=== PATIENT | female | born 1935 | race Caucasian/White ===

== ENCOUNTER 2016-10-29 12:52 | Emergency (ER) | payer BC, OTHER ==
[2016-10-29 13:11] VITALS: TEMP 97.5; BMI 25.0
--- NOTE | 2016-10-29 13:19 | PDOC ---
History of Present Illness - General Chief Complaint: Pain, Acute Stated Complaint: LEFT SHOULDER PAIN Time Seen by Provider: 10/29/16 12:54 History Source: Patient, Family Exam Limitations: No Limitations - History of Present Illness Initial Comments: 10/29/16 14:05 CHIEF COMPLAINT: "I had shoulder pain in both shoulders." HISTORY OF PRESENT ILLNESS: This is an 80-year-old female with a history of coronary artery disease status post stent times one approximately 5 years ago. She also has a history of COPD, but she quit smoking 19 years ago. Patient was feeling well, she was out in the store with her family today. She was pushing a shopping cart with both arms when she had sudden onset of severe, excruciating bilateral shoulder pain, left greater than right shoulder. Her daughter states she seemed to be kind of shaky, and she was complaining of severe pain. There is no nausea or vomiting. There was no shortness of breath. There was no diaphoresis. They brought her to the emergency department. Upon arrival to the emergency department she still had bilateral shoulder pain. A 12-lead EKG was done which was unremarkable. The shoulder pain began to subside on its own. Now she is complaining of bilateral anterior thigh pain. The anterior thigh pain is mild. The shoulder pain has resolved. REVIEW OF SYSTEMS: GENERAL/CONSTITUTIONAL: No fever or chills. No weakness. No weight change. HEAD, EYES, EARS, NOSE AND THROAT: No change in vision. No ear pain or discharge. No sore throat. CARDIOVASCULAR: No chest pain or shortness of breath. Positive bilateral shoulder pain. The history of present illness. RESPIRATORY: No cough, wheezing, or hemoptysis. GASTROINTESTINAL: No nausea, vomiting, diarrhea or constipation. No rectal bleeding. GENITOURINARY: No dysuria, frequency, or change in urination. MUSCULOSKELETAL: Positive bilateral shoulder pain. No obvious change with range of motion. Now resolved. Currently complaining of bilateral anterior thigh discomfort. This pain is mild. SKIN AND BREASTS: No rash or easy bruising. NEUROLOGIC: No headache, vertigo, loss of consciousness, or loss of sensation. PSYCHIATRIC: No depression or anxiety. ENDOCRINE: No increased thirst. No abnormal weight change. HEMATOLOGIC/LYMPHATIC: No anemia, easy bleeding, or history of blood clots. ALLERGIC/IMMUNOLOGIC: No hives. Positive recent dry scaly rash, very itchy. No latex allergy. Past History - Past Medical History Allergies/Adverse Reactions: Allergies Allergy/AdvReac Type Severity Reaction Status Date / Time codeine [Codeine] Allergy Severe RESPIRATORY Verified 10/29/16 12:53 DISTRESS Home Medications: Ambulatory Orders Atorvastatin Ca [Lipitor] 80 mg PO HS 01/19/13 Docusate Sodium [Colace -] 100 mg PO HS 01/19/13 Metoprolol Succinate [Toprol XL -] 50 mg PO DAILY 01/19/13 Omeprazole [Prilosec (RX)] 20 mg PO DAILY 01/19/13 Salmeterol/Fluticasone [Advair 250Mcg/50Mcg -] 1 inh IH BID 01/19/13 Albuterol Sulfate 0.5% [Ventolin 0.5% Nebulizing Soln. -] 1 amp NEB Q4H PRN # 100 amp 04/27/16 Aspirin Coated [Ecotrin -] 81 mg PO DAILY tablet.ec 04/27/16 Albuterol Sulfate [Proair Respiclick] 90 mcg IH DAILY 10/29/16 Umeclidinium [place] [Incruse Ellipta] 62.5 mcg IH DAILY 10/29/16 Valsartan/Hydrochlorothiazide [Valsartan-Hctz 80-12.5 mg Tab] 1 each PO DAILY Anemia: No Asthma: No Cancer: No Cardiac Disorders: Yes (CAD, CHF) CVA: No COPD: Yes CHF: No Dementia: No Diabetes: No GI Disorders: Yes (GERD) Disorders: No HTN: Yes Hypercholesterolemia: Yes Liver Disease: No Seizures: No Thyroid Disease: No - Surgical History Abdominal Surgery: Yes Appendectomy: Yes Cardiac Surgery: Yes (Stent Placement 2011) Cholecystectomy: Yes Lung Surgery: No Neurologic Surgery: No Orthopedic Surgery: Yes (KYPHOPLASTY X 2 IN PAST) - Psycho/Social/Smoking Cessation Hx Anxiety: No Suicidal Ideation: No Smoking Status: Yes Smoking History: Former smoker Years of Tobacco Use: 20 Have you smoked in the past 12 months: No Number of Cigarettes Smoked Daily: 20 If you are a former smoker, when did you quit?: 18 YRS AGO Information on smoking cessation initiated: No Hx Alcohol Use: No Drug/Substance Use Hx: No Substance Use Type: None Hx Substance Use Treatment: No *Physical Exam - Vital Signs Last Vital Signs Temp Pulse Resp BP Pulse Ox 97.5 F L 63 24 113/50 98 10/29/16 12:52 10/29/16 12:52 10/29/16 12:52 10/29/16 12:52 10/29/16 12:52 - Physical Exam Comments: 10/29/16 14:10 GENERAL: The patient is awake, alert, and fully oriented, in no acute distress. She currently denies any shoulder or chest pain. She does have some more mild anterior thigh pain bilaterally. HEAD: Normal with no signs of trauma. EYES: Pupils equal, round and reactive to light, extraocular movements intact, sclera anicteric, conjunctiva clear. ENT: Ears normal, nares patent, oropharynx clear without exudates. Moist mucous membranes. NECK: Normal range of motion, supple without lymphadenopathy, JVD, or masses. LUNGS: Breath sounds equal, clear to auscultation bilaterally. No wheezes, and no crackles. HEART: Regular rate and rhythm, normal S1 and S2 without murmur, rub or gallop. ABDOMEN: Soft, nontender, normoactive bowel sounds. No guarding, no rebound. No masses. EXTREMITIES: Normal range of motion, no edema. No pain with range of motion of the bilateral arms or shoulders. No clubbing or cyanosis. No cords, erythema, or tenderness. NEUROLOGICAL: Cranial nerves II through XII grossly intact. Normal speech, normal gait. PSYCH: Normal mood, normal affect. SKIN: Positive diffuse dry scaly skin with excoriations. Heart Score/ECG Review - ECG Intrepretation Comment:: 10/29/16 13:19 Twelve-lead EKG was reviewed by me. The rhythm is normal sinus rhythm at a rate of 68 bpm. There is sinus arrhythmia with occasional PACs. The axis is normal. The intervals are normal. There are no acute ST elevations or depressions. There are no abnormal T waves. Impression: Sinus rhythm with sinus arrhythmia and PACs, otherwise normal EKG. 10/29/16 14:12 Prior twelve-lead EKG from March 2007 for comparison demonstrates no changes. 10/29/16 17:03 EKG #2 was performed at 1700 hrs. The rhythm is normal sinus rhythm at 69 bpm. There are occasional PACs. The axis is normal. The intervals are normal. There are no acute ST elevations or depressions. There are no abnormal T waves. Impression: Normal sinus rhythm with occasional PACs, otherwise normal EKG. ED Treatment Course - LABORATORY CBC & Chemistry Diagram: 10/29/16 13:45 10/29/16 13:45 Medical Decision Making - Critical Care Time Total Critical Care Time (minutes): 35 (acute chest pain with differential including acute myocardial infarction upon arrival) Critical Care Statement: The care of this patient involved high complexity decision making to prevent further life threatening deterioration of the patient 's condition and/or to evalute & treat vital organ system(s) failure or risk of failure. - Medical Decision Making 10/29/16 14:11 Patient is an 80-year-old woman who presents with sudden onset of bilateral shoulder pain while pushing a shopping cart in the store today. The pain was more severe in the left but also present in the right shoulder. There were no other associated symptoms. The pain resolved shortly after arrival to the ED, spontaneously. Physical examination and twelve-lead EKG are normal. Impression: Nonspecific bilateral shoulder pain of uncertain etiology. Plan is for x-ray, repeat EKG, lab workup and cardiac enzymes. Patient will be observed for a period of time in the ED to assess for recurrence of pain. 10/29/16 14:29 Laboratory Results - last 24 hr 10/29/16 10/29/16 10/29/16 13:45 13:45 13:45 WBC 10.8 H RBC 3.69 Hgb 11.1 Hct 33.2 MCV 90.0 MCHC 33.5 RDW 14.3 Plt Count 277 MPV 9.6 Neutrophils % Y Lymphocytes % Y INR 1.04 Sodium 136 Potassium 4.2 Chloride 103 Carbon Dioxide 25 Anion Gap 8 BUN 31 H D Creatinine 1.4 H Creat Clearance w eGFR 36.18 Random Glucose 101 D Calcium 8.8 Magnesium 1.3 L Total Bilirubin 0.6 D AST 25 ALT 16 Alkaline Phosphatase 86 D Creatine Kinase Troponin I Total Protein 6.7 Albumin 3.6 10/29/16 13:45 WBC RBC Hgb Hct MCV MCHC RDW Plt Count MPV Neutrophils % Lymphocytes % INR Sodium Potassium Chloride Carbon Dioxide Anion Gap BUN Creatinine Creat Clearance w eGFR Random Glucose Calcium Magnesium Total Bilirubin AST ALT Alkaline Phosphatase Creatine Kinase 78 Troponin I 0.03 Total Protein Albumin 10/29/16 14:30 Troponin level is 0.03, EKG is unremarkable with no change from prior EKG. Patient will be observed and have repeat EKG and repeat cardiac enzymes. She continues to feel well at this time. 10/29/16 17:42 Troponin level 2 is negative. EKG 2 is negative. The patient continues to feel well. Her shoulder pain that was sudden onset that resolved spontaneously does not appear to be cardiac in etiology. Patient is stable for discharge home with her daughters. She was advised to return for any serious symptoms. *DC/Admit/Observation/Transfer Diagnosis at time of Disposition: Chest pain Qualifiers: Chest pain type: unspecified Qualified Code(s): R07.9 - Chest pain, unspecified - Discharge Dispostion Disposition: HOME Condition at time of disposition: Improved Admit: No - Referrals Referrals: Lucy Munoz MD [Primary Care Provider] - 3 days - Patient Instructions Printed Discharge Instructions: DI for Chest Pain Additional Instructions: You were evaluated today for shoulder pain. The EKGs and heart enzymes were all normal. The extract cause of the shoulder pain is not clear at this time, but it has resolved and does not appear to be caused by anything serious at this moment. Follow-up with Dr. Zabala, your cannon fire direction specialist or with your primary care physician. Return to the emergency department for any severe or progressive symptoms.
[2016-10-29 14:06] LABS: INR 1.04 (0.82-1.09); PROTHROMBIN TIME (PATIENT) 11.6 SEC (10.2-13.0)
[2016-10-29 14:11] LABS: ALBUMIN 3.6 g/dl (3.5-5.0); BILIRUBIN,TOTAL 0.6 mg/dl (0.2-1.0); CALCIUM 8.8 mg/dl (8.4-10.2); CREATININE 1.4 mg/dl (0.6-1.3); MAGNESIUM 1.3 mg/dL (1.8-2.4); TOT PROT 6.7 g/dl (6.4-8.3)
[2016-10-29 14:16] LABS: MCH 30.2 pg (25.7-33.7); MCHC 33.5 g/dl (32.0-36.0); MEAN PLT VOLUME 9.6 fl (7.5-11.1); PLATELET COUNT 277 K/MM3 (134-434); RDW 14.3 % (11.6-15.6); WHITE BLOOD COUNT 10.8 K/mm3 (4.0-10.0)
[2016-10-29 14:23] LABS: TROPONIN I (DFP) 0.03 ng/ml (0.03-0.50)
[2016-10-29 14:45] LABS: ANISOCYTOSIS 1+; SCHISTOCYTES OCC
[2016-10-29 14:46] LABS: POIKILOCYTOSIS OCC
[2016-10-29 16:51] LABS: CPK(DFH) 82 IU/L (26-140)
[2016-10-29 17:07] LABS: TROPONIN I (DFP) < 0.03 ng/ml (0.03-0.50)
[2016-10-29 17:41] VITALS: BP 108/48; PULSE 75
--- NOTE | 2016-10-29 22:18 | EKG ---
Test Reason : Blood Pressure : / mmHG Vent. Rate : 068 BPM Atrial Rate : 068 BPM P-R Int : 144 ms QRS Dur : 074 ms QT Int : 398 ms P-R-T Axes : 026 000 032 degrees QTc Int : 423 ms SINUS RHYTHM WITH PREMATURE ATRIAL COMPLEXES OTHERWISE NORMAL ECG WHEN COMPARED WITH ECG OF 08-APR-2007 16:58, PREMATURE ATRIAL COMPLEXES ARE NOW PRESENT Confirmed by ISABELA COLMENARES MD ([id number]) on 10/29/2016 10:18:15 PM Referred By: BRIAN FLORIAN Confirmed By:ISABELA COLMENARES MD
--- NOTE | 2016-10-30 17:35 | EKG ---
Test Reason : Blood Pressure : / mmHG Vent. Rate : 069 BPM Atrial Rate : 069 BPM P-R Int : 152 ms QRS Dur : 068 ms QT Int : 386 ms P-R-T Axes : 068 006 040 degrees QTc Int : 413 ms POOR DATA QUALITY, INTERPRETATION MAY BE ADVERSELY AFFECTED SINUS RHYTHM WITH PREMATURE ATRIAL COMPLEXES WHEN COMPARED WITH ECG OF 29-OCT-2016 13:14, NO SIGNIFICANT CHANGE WAS FOUND Confirmed by MD HERMILA, SUSAN ([id number]) on 10/30/2016 5:35:24 PM Referred By: BRIAN FLORIAN Confirmed By:SUSAN CLEANING MD
== END 2016-10-29 17:59 | disposition home or self-care (01) ==
LOC: FER 12:52
DX: R07.9 Chest pain, unspecified (principal); I25.10 Atherosclerotic heart disease of native coronary artery without angina pectoris; I50.9 Heart failure, unspecified; J44.9 Chronic obstructive pulmonary disease, unspecified; I10 Essential (primary) hypertension; E78.00 Pure hypercholesterolemia, unspecified; Z87.891 Personal history of nicotine dependence
CPT/HCPCS: 36415; 71010-TC; 80053; 82550; 83735; 84484; 85025; 85610; 93005; 99285-25

== ENCOUNTER 2017-09-16 08:47 | Observation (INO) | payer OTHER, BC ==
[2017-09-16] MEDS ORDERED: LIDOCAINE HCL 2% JELLY (5 ML/TUBE) ONE (08:57)
[2017-09-16] MEDS ORDERED: LIDOCAINE HCL 1%, 10 MG/ML (20ML VIAL) ONE (09:04)
[2017-09-16] MEDS ORDERED: MAGNESIUM CITRATE 300 ML BOTTLE ONE (09:15)
--- NOTE | 2017-09-16 09:27 | PDOC ---
History of Present Illness - General Chief Complaint: Constipation Stated Complaint: CONSTIPATION Time Seen by Provider: 09/16/17 09:26 History Source: Patient (Patient brought in by daughter because of abdomonal, rectal pain and difficulty in having a bowel movement because of pain in the anus. ) Exam Limitations: No Limitations - History of Present Illness Timing/Duration: getting worse Severity: moderate, severe Associated Symptoms: denies: denies symptoms, chest pain, cough, diaphoresis, fever/chills, headaches, loss of appetite, malaise, nausea/vomiting, rash, seizure, shortness of breath, syncope, weakness, other Past History - Travel Traveled outside of the country in the last 30 days: No Close contact w/someone who was outside of country & ill: No - Past Medical History Allergies/Adverse Reactions: Allergies Allergy/AdvReac Type Severity Reaction Status Date / Time codeine [Codeine] Allergy Severe RESPIRATORY Verified 09/16/17 08:48 DISTRESS Home Medications: Ambulatory Orders Atorvastatin Ca [Lipitor] 80 mg PO HS 01/19/13 Docusate Sodium [Colace -] 200 mg PO HS 01/19/13 Metoprolol Succinate [Toprol XL -] 50 mg PO DAILY 01/19/13 Omeprazole [Prilosec (RX)] 20 mg PO DAILY 01/19/13 Salmeterol/Fluticasone [Advair 250Mcg/50Mcg -] 1 inh IH BID 01/19/13 Aspirin Coated [Ecotrin -] 81 mg PO DAILY tablet.ec 04/27/16 Albuterol Sulfate [Proair Respiclick] 90 mcg IH DAILY 10/29/16 Umeclidinium [place] [Incruse Ellipta] 62.5 mcg IH DAILY 10/29/16 Valsartan/Hydrochlorothiazide [Valsartan-Hctz 80-12.5 mg Tab] 1 each PO DAILY Furosemide [Lasix] 20 mg PO ASDIR 09/16/17 Anemia: No Asthma: No Cancer: No Cardiac Disorders: Yes (CAD, CHF) CVA: No COPD: Yes CHF: No DVT: No Dementia: No Diabetes: No GI Disorders: Yes (GERD) Disorders: No HTN: Yes Hypercholesterolemia: Yes Liver Disease: No Seizures: No Thyroid Disease: No - Surgical History Abdominal Surgery: Yes Appendectomy: Yes Cardiac Surgery: Yes (Stent Placement 2012) Cholecystectomy: Yes Lung Surgery: No Neurologic Surgery: No Orthopedic Surgery: Yes (KYPHOPLASTY X 2 IN PAST) - Suicide/Smoking/Psychosocial Hx Smoking Status: Yes Smoking History: Former smoker Years of Tobacco Use: 20 Have you smoked in the past 12 months: No Number of Cigarettes Smoked Daily: 20 If you are a former smoker, when did you quit?: 18 YRS AGO Information on smoking cessation initiated: No Hx Alcohol Use: No Drug/Substance Use Hx: No Substance Use Type: None Hx Substance Use Treatment: No Review of Systems - Review of Systems Able to Perform ROS?: Yes Is the patient limited Spanish proficient: Yes Constitutional: Yes: Symptoms Reported, Weakness HEENTM: No: Symptoms Reported, See HPI, Eye Pain, Blurred Vision, Tearing, Recent change in vision, Double Vision, Cataracts, Ear Pain, Ocular Prothesis, Ear Discharge, Nose Pain, Nose Congestion, Tinnitus, Nose Bleeding, Hearing Loss , Throat Pain, Throat Swelling, Mouth Pain, Dental Problems, Difficulty Swallowing, Mouth Swelling, Other Respiratory: No: Symptoms reported, See HPI, Cough, Orthopnea, Shortness of Breath, SOB with Exertion, SOB at Rest, Stridor, Wheezing, Productive cough, Hemoptysis, Other Cardiac (ROS): No: Symptoms Reported, See HPI, Chest Pain, Edema, Irregular Heart Rate, Lightheadedness, Palpitations, Syncope, Chest Tightness, Other ABD/GI: Yes: See HPI, Abd. Pain w/ defecation, Constipated : No: Symptoms Reported, See HPI, Burning, Dysuria, Discharge, Frequency, Flank Pain, Hematuria, Incontinence, Pain, Urgency, Testicular Mass, Testicular Swelling, Lesions, Testicular Pain, Other Musculoskeletal: Yes: Muscle Weakness Integumentary: No: Symptoms Reported, See HPI, Bruising, Change in Color, Change in Hair/Nails, Dryness, Erythema, Flushing, Lesions, Lumps, Pallor, Pruritus, Rash, Sweating, Other All Other Systems: Reviewed and Negative *Physical Exam - Vital Signs Last Vital Signs Temp Pulse Resp BP Pulse Ox 97.5 F L 75 16 153/60 96 09/16/17 08:48 09/16/17 08:48 09/16/17 08:48 09/16/17 08:48 09/16/17 08:48 - Physical Exam General Appearance: Yes: Nourished, Moderate Distress, Severe Distress, Thin HEENT: positive: Normal ENT Inspection, Other (dry oral mucosae) Neck: positive: Other (scoliosis) Respiratory/Chest: positive: Lungs Clear, Normal Breath Sounds Cardiovascular: positive: Regular Rate, S1, S2 Gastrointestinal/Abdominal: positive: Tender (Very mild diffuse abdominal tendernes), Flat Rectal Exam: positive: hemorrhoids (Thrombosed hemorrhoid aprox 1.5 cm in diameter ) Musculoskeletal: positive: Other (Kyphoscoliosis) Integumentary: positive: Dry Neurologic: positive: quality assurance technician II-XII NML intact, Fully Oriented, Alert, Normal Mood/ Affect Procedures - Incision and Drainage I&D Site: Left: Other (perianal thrombosed hemorrhoid) Betadine cleansed: Yes Anesthesia: 1% Lidocaine Volume(ml): 5 Blade Size: 10 Attempts: 1 Complications: none Dressing: Yes ED Treatment Course - LABORATORY CBC & Chemistry Diagram: 09/16/17 11:31 09/16/17 11:31 Medical Decision Making - Medical Decision Making After I & D of the thrombosed hemorrhoid, patient experienced relief, received Mag Citrate po, topical anesthesia and Fleet enema, Observed for one hour. Second hour patient strained self, few hard stool destiny came out with pain Morphine Sulfate 1mg iv push given with some improvement of pain. Call to RAJ[facility] Gil were made. 09/16/17 13:07 *DC/Admit/Observation/Transfer Diagnosis at time of Disposition: Thrombosed external hemorrhoid Constipation Qualifiers: Constipation type: unspecified constipation type Qualified Code(s): K59.00 - Constipation, unspecified - Discharge Dispostion Disposition: HOME Condition at time of disposition: Improved Admit: Yes - Referrals Referrals: Lucy uMnoz MD [Primary Care Provider] - - Patient Instructions Printed Discharge Instructions: Hemorrhoidectomy, DI for Constipation Additional Instructions: Suggest Miralax daily 1/2 dose, sitzbath warnm tide water, apply bacitracin ointment after and after B.M. - Post Discharge Activity
[2017-09-16] MEDS ORDERED: LIDOCAINE VISCOUS 2% ORAL/TOP 100 ML BOTTLE MM ONE (09:29)
[2017-09-16] MEDS ORDERED: MAGNESIUM CITRATE 300 ML BOTTLE PO ONE (09:44)
[2017-09-16] MEDS ORDERED: LIDOCAINE HCL 2% JELLY (5 ML/TUBE) TP ONE (10:07)
[2017-09-16] MEDS ORDERED: LIDOCAINE HCL 1%, 10 MG/ML (50 mL VIAL) SQ ONE (10:08)
[2017-09-16] MEDS ORDERED: ACETAMINOPHEN 500 MG TABLET (FP) ONE (10:39)
[2017-09-16] MEDS ORDERED: SODIUM PHOSPHATE/NA BIPHOS 133 ML ENEMA PR ONE (11:07)
[2017-09-16] MEDS ORDERED: ACETAMINOPHEN 500 MG TABLET (FP) PO ONE (11:08)
[2017-09-16] MEDS ORDERED: morphine CARPU-JECT 2 MG/1 ML DISP.SYRIN IVPUSH ONE (11:29)
[2017-09-16] MEDS ORDERED: morphine CARPU-JECT 2 MG/1 ML DISP.SYRIN ONE (11:35)
[2017-09-16 11:45] LABS: BASO % 2.3 % (0-2.0); EOS % 2.6 % (0-4.5); HEMATOCRIT 36.4 % (32.4-45.2); HEMOGLOBIN 12.1 GM/dl (10.7-15.3); LYMPH % 12.6 % (8-40); MCHC 33.2 g/dl (32.0-36.0); MEAN CELL VOLUME 93.5 fl (80-96); MEAN PLT VOLUME 9.8 fl (7.5-11.1); MONO % 13.5 % (3.8-10.2); PLATELET COUNT 309 K/MM3 (134-434); RBC 3.89 M/mm3 (3.60-5.2); RDW 13.7 % (11.6-15.6); WHITE BLOOD COUNT 11.7 K/mm3 (4.0-10.8)
[2017-09-16 12:05] LABS: ALBUMIN 3.7 g/dl (3.5-5.0); ALK PHOS 103 U/L (32-92); ANION GAP 10 (8-16); BILIRUBIN,TOTAL 0.3 mg/dl (0.2-1.0); BLOOD UREA NITROGEN 30 mg/dl (7-18); CALCIUM 9.4 mg/dl (8.4-10.2); CHLORIDE 106 mmol/L (98-107); CO2 22 mmol/L (22-28); CREATININE 1.2 mg/dl (0.6-1.3); GLUCOSE,RANDOM 125 mg/dl (74-106); POTASSIUM 4.8 mmol/L (3.5-5.1); SGOT/AST 24 U/L (10-42); SGPT/ALT 16 U/L (10-40); SODIUM 138 mmol/L (136-145); TOT PROT 7.4 g/dl (6.4-8.3)
--- NOTE | 2017-09-16 12:43 | HP ---
CHIEF COMPLAINT: Constipation PCP: Dr. Munoz (paged by ER without return call) GI: Dr. Lemus (no recent colonoscopy, high risk per daughter) Cardiology: Dr. Fuentes Pulmonology: Dr. Puente HISTORY OF PRESENT ILLNESS: This is an 81 year old female with a history of CAD s/p stent x 1, HTN, COPD, and GERD who presented to the ED today with rectal pain and difficulty with defacation x 1 week. She has been able to tpass only a very small amount of stool and has a sensation of incomplete evacuation. She denies abdominal pain, n/v, fevers/chills, or any other symptoms. In the ED she was noted to have a thrombosed hemorrhoid, which was incised and drained. She was given magnesium citrate and an enema and was able to have a small bowel movement, but continues to have rectal pain which required administration of IV morphine. ER course was notable for: (1) AXR: no fecal impaction or obstruction (2) WBC mildly elevated at 11.7 (3) BUN elevated at 30 Recent Travel: None PAST MEDICAL HISTORY: As above PAST SURGICAL HISTORY: Hemorrhoidectomy (distant), appendix, gallbladder Social History: Lives with daughter, independent in ADLs Smoking: Former smoker Alcohol: None Family History: Non-contributory Allergies codeine [Codeine] Allergy (Severe, Verified 09/16/17 08:48) RESPIRATORY DISTRESS HOME MEDICATIONS: Home Medications Medication Instructions Recorded Atorvastatin Ca [Lipitor] 80 mg PO HS 01/19/13 Docusate Sodium [Colace -] 200 mg PO HS 01/19/13 Metoprolol Succinate [Toprol XL -] 50 mg PO DAILY 01/19/13 Omeprazole [Prilosec (RX)] 20 mg PO DAILY 01/19/13 Salmeterol/Fluticasone [Advair 1 inh IH BID 01/19/13 250Mcg/50Mcg -] Aspirin Coated [Ecotrin -] 81 mg PO DAILY tablet.ec 04/27/16 Albuterol Sulfate [Proair 90 mcg IH DAILY 10/29/16 Respiclick] Umeclidinium [place] [Incruse 62.5 mcg IH DAILY 10/29/16 Ellipta] Valsartan/Hydrochlorothiazide 1 each PO DAILY 10/29/16 [Valsartan-Hctz 80-12.5 mg Tab] Furosemide [Lasix] 20 mg PO ASDIR 09/16/17 REVIEW OF SYSTEMS CONSTITUTIONAL: Absent: fever, chills, diaphoresis, generalized weakness, malaise, loss of appetite, weight change HEENT: Absent: rhinorrhea, nasal congestion, throat pain, throat swelling, difficulty swallowing, mouth swelling, ear pain, eye pain, visual changes CARDIOVASCULAR: Absent: chest pain, syncope, palpitations, irregular heart rate, lightheadedness , peripheral edema RESPIRATORY: Absent: cough, shortness of breath, dyspnea with exertion, orthopnea, wheezing, stridor, hemoptysis GASTROINTESTINAL: See HPI GENITOURINARY: Absent: dysuria, frequency, urgency, hesitancy, hematuria, flank pain, genital pain MUSCULOSKELETAL: Absent: myalgia, arthralgia, joint swelling, back pain, neck pain SKIN: Absent: rash, itching, pallor HEMATOLOGIC/IMMUNOLOGIC: Absent: easy bleeding, easy bruising, lymphadenopathy, frequent infections ENDOCRINE: Absent: unexplained weight gain, unexplained weight loss, heat intolerance, cold intolerance NEUROLOGIC: Absent: headache, focal weakness or paresthesias, dizziness, unsteady gait, seizure, mental status changes, bladder or bowel incontinence PSYCHIATRIC: Absent: anxiety, depression, suicidal or homicidal ideation, hallucinations. PHYSICAL EXAMINATION Vital Signs - 24 hr 09/16/17 08:48 Temperature 97.5 F L Pulse Rate 75 Respiratory 16 Rate Blood Pressure 153/60 O2 Sat by Pulse 96 Oximetry (%) GENERAL: Awake, alert, and fully oriented, in no acute distress. HEAD: Normal with no signs of trauma. EYES: Pupils equal, round and reactive to light, extraocular movements intact, sclera anicteric, conjunctiva clear. No lid lag. EARS, NOSE, THROAT: Ears normal, nares patent, oropharynx clear without exudates. Moist mucous membranes. NECK: Normal range of motion, supple without lymphadenopathy, JVD, or masses. LUNGS: Breath sounds equal, clear to auscultation bilaterally. No wheezes, and no crackles. No accessory muscle use. HEART: Regular rate and rhythm, normal S1 and S2 without murmur, rub or gallop. ABDOMEN: Soft, nontender, not distended, normoactive bowel sounds, no guarding, no rebound, no masses. No hepatomegaly or splenomegaly. MUSCULOSKELETAL: Normal range of motion at all joints. No bony deformities or tenderness. No CVA tenderness. UPPER EXTREMITIES: 2+ pulses, warm, well-perfused. No cyanosis. No clubbing. No peripheral edema. LOWER EXTREMITIES: 2+ pulses, warm, well-perfused. No calf tenderness. No peripheral edema. NEUROLOGICAL: Cranial nerves II-XII intact. Normal speech. Normal gait. PSYCHIATRIC: Cooperative. Good eye contact. Appropriate mood and affect. SKIN: Warm, dry, normal turgor, no rashes or lesions noted, normal capillary refill. Laboratory Results - last 24 hr 09/16/17 09/16/17 11:31 11:31 WBC 11.7 H D RBC 3.89 Hgb 12.1 Hct 36.4 MCV 93.5 MCH 31.0 MCHC 33.2 RDW 13.7 Plt Count 309 MPV 9.8 Neutrophils % 69.0 Lymphocytes % 12.6 Monocytes % 13.5 H Eosinophils % 2.6 Basophils % 2.3 H Sodium 138 Potassium 4.8 Chloride 106 Carbon Dioxide 22 Anion Gap 10 BUN 30 H Creatinine 1.2 Creat Clearance w eGFR 43.12 Random Glucose 125 H D Calcium 9.4 Total Bilirubin 0.3 D AST 24 ALT 16 Alkaline Phosphatase 103 H Total Protein 7.4 Albumin 3.7 ASSESSMENT/PLAN: 81 year old female with constipation secondary to thrombosed hemorrhoid. Problem List - Problem (1) Constipation Assessment/Plan: -Colace, Senna, Miralax -Encourage PO intake and ambulation -Expect improvement s/p I&D -Consider GI evaluation if symptoms worsening Code(s): K59.00 - CONSTIPATION, UNSPECIFIED Qualifiers: Constipation type: unspecified constipation type Qualified Code(s): K59.00 - Constipation, unspecified (2) Thrombosed external hemorrhoid Assessment/Plan: -S/p I&D Code(s): K64.5 - PERIANAL VENOUS THROMBOSIS (3) HTN (hypertension) Assessment/Plan: -At goal -Continue home Valsartan/HCTZ and Metoprolol Code(s): I10 - ESSENTIAL (PRIMARY) HYPERTENSION (4) Atherosclerotic heart disease Assessment/Plan: -No active issues -Continue ASA, statin, BB Code(s): I25.10 - ATHSCL HEART DISEASE OF ELEM CORONARY ARTERY W/O ANG PCTRS (5) COPD (chronic obstructive pulmonary disease) with acute bronchitis Assessment/Plan: -No active issues -Continue home inhalers Code(s): J44.0 - CHRONIC OBSTRUCTIVE PULMON DISEASE W ACUTE LOWER RESP INFCT (6) GERD (gastroesophageal reflux disease) Assessment/Plan: -No active issues -Continue home PPI Code(s): K21.9 - GASTRO-ESOPHAGEAL REFLUX DISEASE WITHOUT ESOPHAGITIS (7) Hyperlipidemia Assessment/Plan: -Continue atorvastatin Code(s): E78.5 - HYPERLIPIDEMIA, UNSPECIFIED Qualifiers: Hyperlipidemia type: pure hypercholesterolemia Qualified Code(s): E78.00 - Pure hypercholesterolemia, unspecified; E78.0 - Pure hypercholesterolemia (8) DVT prophylaxis Assessment/Plan: -SCDs Code(s): [id number] - Visit type - Emergency Visit Emergency Visit: Yes ED Registration Date: 09/16/17 Care time: The patient presented to the Emergency Department on the above date and was hospitalized for further evaluation of their emergent condition. - New Patient This patient is new to me today: Yes Date on this admission: 09/16/17 - Critical Care Critical Care patient: No
--- NOTE | 2017-09-16 12:47 | EKG ---
Test Reason : Blood Pressure : / mmHG Vent. Rate : 065 BPM Atrial Rate : 065 BPM P-R Int : 158 ms QRS Dur : 072 ms QT Int : 386 ms P-R-T Axes : 060 -01 046 degrees QTc Int : 401 ms NORMAL SINUS RHYTHM NORMAL ECG WHEN COMPARED WITH ECG OF 29-OCT-2016 17:00, PREMATURE ATRIAL COMPLEXES ARE NO LONGER PRESENT Confirmed by Kulwinder Witt ([id number]) on 09/16/2017 12:46:56 PM Referred By: EDENILSON Confirmed By:Kulwinder Witt
[2017-09-16] MEDS ORDERED: ASPIRIN COATED 81 MG TABLET.EC PO SCH (13:32)
[2017-09-16] MEDS ORDERED: morphine CARPU-JECT 2 MG/1 ML DISP.SYRIN IVPUSH PRN (13:33)
[2017-09-16] MEDS ORDERED: ACETAMINOPHEN 325 MG TABLET (FP) PO PRN (13:33)
[2017-09-16] MEDS ORDERED: PATIENT'S OWN MEDICATION (NON-FORMULARY) (Valsartan/Hydrochlorothiazide [Valsartan-Hctz 80 PO SCH (13:45)
[2017-09-16] MEDS ORDERED: SODIUM CHLORIDE 1,000 ML IV SCH (13:45)
[2017-09-16] MEDS ORDERED: FUROSEMIDE 40 MG TABLET (FP) ONE (14:13)
[2017-09-16] MEDS: FUROSEMIDE 20 MG TABLET (FP) PO SCH (14:16)
[2017-09-16] MEDS: POLYETHYLENE GLYCOL 3350 119 GM BTL PO SCH ×2 (14:46→21:08)
[2017-09-16] MEDS: DOCUSATE SODIUM 100 MG CAPSULE (FP) PO SCH ×2 (14:47→21:08)
[2017-09-16 15:15] VITALS: BMI 22.8
[2017-09-16] MEDS: BUDESONIDE/FORMETEROL FUMARATE 80/4.5 mcg INHALER IH SCH ×2 (16:27→22:23)
[2017-09-16] MEDS: PANTOPRAZOLE 20 MG TABLET (FP) PO SCH (16:27)
[2017-09-16] MEDS: VALSARTAN 80 MG TABLET (UD) PO SCH (16:39)
[2017-09-16] MEDS: HYDROCHLOROTHIAZIDE 12.5 MG CAPSULE (FP) PO SCH (16:39)
[2017-09-16] MEDS: SENNOSIDES 8.6MG TABLET (FP) PO SCH (21:09)
[2017-09-16] MEDS ORDERED: ATORVASTATIN CA 80 MG TABLET (FP) PO SCH (22:00)
[2017-09-16] MEDS: METOPROLOL SUCCINATE 50 MG TAB.SR.24H (FP) PO SCH (22:25)
[2017-09-17] MEDS: SODIUM CHLORIDE 1,000 ML IV SCH (00:41)
[2017-09-17] MEDS: DOCUSATE SODIUM 100 MG CAPSULE (FP) PO SCH ×4 (06:29→21:10)
[2017-09-17 08:15] LABS: BASO % 0.5 % (0-2.0); EOS % 4.4 % (0-4.5); HEMOGLOBIN 10.8 GM/dl (10.7-15.3); LYMPH % 12.7 % (8-40); MCH 31.4 pg (25.7-33.7); MCHC 33.9 g/dl (32.0-36.0); MEAN CELL VOLUME 92.5 fl (80-96); MEAN PLT VOLUME 9.4 fl (7.5-11.1); MONO % 9.6 % (3.8-10.2); NEUT % 72.8 % (42.8-82.8); PLATELET COUNT 253 K/MM3 (134-434); RBC 3.45 M/mm3 (3.60-5.2); RDW 13.6 % (11.6-15.6); WHITE BLOOD COUNT 9.7 K/mm3 (4.0-10.8)
[2017-09-17 08:48] LABS: ALBUMIN 3.1 g/dl (3.5-5.0); ALK PHOS 86 U/L (32-92); ANION GAP 6 (8-16); BILIRUBIN,TOTAL 0.6 mg/dl (0.2-1.0); BLOOD UREA NITROGEN 23 mg/dl (7-18); CALCIUM 8.5 mg/dl (8.4-10.2); CHLORIDE 100 mmol/L (98-107); CO2 28 mmol/L (22-28); GLUCOSE,RANDOM 96 mg/dl (74-106); MAGNESIUM 2.3 mg/dL (1.8-2.4); POTASSIUM 4.5 mmol/L (3.5-5.1); SGOT/AST 20 U/L (10-42); SGPT/ALT 13 U/L (10-40); SODIUM 134 mmol/L (136-145); TOT PROT 6.2 g/dl (6.4-8.3)
[2017-09-17] MEDS: PANTOPRAZOLE 20 MG TABLET (FP) PO SCH (09:54)
[2017-09-17] MEDS: VALSARTAN 80 MG TABLET (UD) PO SCH (09:54)
[2017-09-17] MEDS: HYDROCHLOROTHIAZIDE 12.5 MG CAPSULE (FP) PO SCH (09:54)
[2017-09-17] MEDS: POLYETHYLENE GLYCOL 3350 119 GM BTL PO SCH ×2 (09:55→21:09)
[2017-09-17] MEDS: BUDESONIDE/FORMETEROL FUMARATE 80/4.5 mcg INHALER IH SCH ×2 (09:59→21:10)
[2017-09-17] MEDS ORDERED: METOPROLOL SUCCINATE 50 MG TAB.SR.24H (FP) PO SCH (10:00)
[2017-09-17] MEDS: PATIENT'S OWN MEDICATION (NON-FORMULARY) (Umeclidinium Bromide [Incruse Ellipta] 62.5 MCG) IH SCH (10:37)
--- NOTE | 2017-09-17 10:56 | PN ---
Physical Exam: SUBJECTIVE: Patient seen and examined, reports feeling tired and weak, multiple episodes of loose stool as per patient. OBJECTIVE: patient is 81 year old female with a history of CAD s/p stent x 1, HTN, COPD, and GERD. Patient was admitted from the emergency department to observation for emergent condition Vital Signs Period Temp Pulse Resp BP Sys/Oh Pulse Ox Last 24 Hr 97.6 F-98.0 F 64-79 16-19 95-134/42-62 98-99 GENERAL: The patient is awake, alert, and fully oriented, in no acute distress. HEAD: Normal with no signs of trauma. EYES: PERRL, extraocular movements intact, sclera anicteric, conjunctiva clear. No ptosis. ENT: Ears normal, nares patent, oropharynx clear without exudates, dry mucous membranes. NECK: Trachea midline, full range of motion, supple. LUNGS: Breath sounds equal, clear to auscultation bilaterally, no wheezes, no crackles, no accessory muscle use. HEART: Regular rate and rhythm, S1, S2 without murmur, rub or gallop. ABDOMEN: Soft, nontender, nondistended, hyperactive bowel sounds, no guarding, no rebound, no hepatosplenomegaly, no masses. EXTREMITIES: 2+ pulses, warm, well-perfused, no edema. NEUROLOGICAL: Cranial nerves II through XII grossly intact. Normal speech, gait not observed. PSYCH: Normal mood, normal affect. SKIN: Warm, dry, normal turgor, no rashes or lesions noted Laboratory Results - last 24 hr 09/16/17 09/16/17 09/17/17 11:31 11:31 07:00 WBC 11.7 H D 9.7 RBC 3.89 3.45 L Hgb 12.1 10.8 D Hct 36.4 32.0 L MCV 93.5 92.5 MCH 31.0 31.4 MCHC 33.2 33.9 RDW 13.7 13.6 Plt Count 309 253 MPV 9.8 9.4 Neutrophils % 69.0 72.8 Lymphocytes % 12.6 12.7 Monocytes % 13.5 H 9.6 Eosinophils % 2.6 4.4 Basophils % 2.3 H 0.5 Sodium 138 Potassium 4.8 Chloride 106 Carbon Dioxide 22 Anion Gap 10 BUN 30 H Creatinine 1.2 Creat Clearance w eGFR 43.12 Random Glucose 125 H D Calcium 9.4 Magnesium Total Bilirubin 0.3 D AST 24 ALT 16 Alkaline Phosphatase 103 H Total Protein 7.4 Albumin 3.7 09/17/17 07:00 WBC RBC Hgb Hct MCV MCH MCHC RDW Plt Count MPV Neutrophils % Lymphocytes % Monocytes % Eosinophils % Basophils % Sodium 134 L Potassium 4.5 Chloride 100 Carbon Dioxide 28 D Anion Gap 6 L BUN 23 H D Creatinine 1.0 Creat Clearance w eGFR 53.21 Random Glucose 96 D Calcium 8.5 Magnesium 2.3 Total Bilirubin 0.6 D AST 20 ALT 13 Alkaline Phosphatase 86 Total Protein 6.2 L Albumin 3.1 L Active Medications Generic Name Dose Route Start Last Admin Trade Name Freq PRN Reason Stop Dose Admin Acetaminophen 650 mg 09/16/17 13:33 Tylenol - PO Q4H PRN PAIN LEVEL 1-5 Aspirin 81 mg 09/17/17 22:00 Ecotrin - PO HS [facility] Atorvastatin Calcium 80 mg 09/16/17 22:00 09/16/17 22:23 Lipitor - PO Not Given HS YESSENIA Budesonide/Formoterol Fumarate 2 puff 09/16/17 13:32 09/17/17 09:59 Symbicort 80/4.5mcg - IH 2 puff BID YESSENIA Administration Docusate Sodium 200 mg 09/16/17 14:00 09/17/17 06:29 Colace - PO Not Given TID YESSENIA Furosemide 20 mg 09/16/17 13:33 09/16/17 14:16 Lasix - PO 20 mg ASDIR YESSENIA Administration Hydrochlorothiazide 12.5 mg 09/16/17 16:30 09/17/17 09:54 Hctz - PO Not Given DAILY [facility] Sodium Chloride 1,000 mls @ 42 mls/hr 09/17/17 00:30 09/17/17 00:41 Normal Saline - IV 42 mls/hr ASDIR YESSENIA Administration Metoprolol Succinate 50 mg 09/16/17 22:00 09/16/17 22:25 Toprol Xl - PO 50 mg HS YESSENIA Administration Morphine Sulfate 2 mg 09/16/17 13:33 09/16/17 17:11 Morphine Injection - IVPUSH 2 mg Q4H PRN Administration PAIN LEVEL 6-10 Non-Formulary Medication 62.5 mcg 09/16/17 13:45 09/17/17 10:37 Umeclidinium [place] [Incruse Ellipta] IH 62.5 mcg DAILY YESSENIA Administration Pantoprazole Sodium 20 mg 09/16/17 13:32 09/17/17 09:54 Protonix - PO 20 mg DAILY YESSENIA Administration Polyethylene Glycol 17 gm 09/16/17 13:45 09/17/17 09:55 Miralax (For Daily Use) - PO Not Given BID YESSENIA Senna 2 tab 09/16/17 22:00 09/16/17 21:09 Senna - PO Not Given HS YESSENIA Valsartan 80 mg 09/16/17 16:30 09/17/17 09:54 Diovan - PO Not Given DAILY YESSENIA ASSESSMENT/PLAN: 1) GI thrombosed external hemorrhoid - s/p I&D, 09/16/17, continue bacitracain BID - daughter reports an unintentional 10 lb weight loss within the past 3 months and decreased appetitie, pt may require colonscopy, appreciate gi input constipation - resolved, after colace, senna, and miralax - continue high fiber diet GERD - continue home dose protonix 2) cardiovascular hypertension - labile,hold valsartan, hctz, and metoprolol - continue vital signs q4h CAD - continue ASA, statin 3) Pulm copd - no acute excerbation at this time. - continue symbicort and prn albuterol f/e/n - low sodium diet - replete electrolytes prn ppx - scd - oob - pt dispo: requires observation admission Visit type - Emergency Visit Emergency Visit: Yes ED Registration Date: 09/16/17 Care time: The patient presented to the Emergency Department on the above date and was hospitalized for further evaluation of their emergent condition. - New Patient This patient is new to me today: Yes Date on this admission: 09/17/17 - Critical Care Critical Care patient: No - Discharge Referral Referred to [facility] Med P.C.: No
[2017-09-17] MEDS ORDERED: ALBUTEROL SO4 0.083% IH SOL 2.5 MG/3 ML VIAL.NEB. NEB PRN (12:36)
[2017-09-17] MEDS: ATORVASTATIN CA 80 MG TABLET (FP) PO SCH (13:18)
[2017-09-17] MEDS ORDERED: PT OWN MED DRAWER 7, Y5N ONE ×3 (13:33→21:26)
[2017-09-17] MEDS: BACITRACIN 15 GM TUBE TOPICAL OINTMENT TP SCH ×2 (13:38→21:08)
[2017-09-17] MEDS: FUROSEMIDE 20 MG TABLET (FP) PO SCH (13:38)
--- NOTE | 2017-09-17 13:53 | PN ---
Progress Note (short form) - Note Progress Note: Patient seen and chart reviewed. Patient with hx of constipation, gradual weight loss x months and currently a thrombosed, painful external hemorrhoid. Has not had colonoscopy to date. Discussed with guido and daughter; to keep on clear liquid diet and give Miralax powder for constipation. Surgery consult called for Rx of the thrombosed hemorrhoid and can use Lidocaine gel prn for pain along with Sitz baths. Will tentatively arrange for colonoscopy Weds pending Cardiac/Pulmonary clearance to r/o LGI tract pathology. (will need Nulytely prep tomorrow over 6 hours).
--- NOTE | 2017-09-17 14:48 | CON.CARD ---
Consult Consult Specialty:: Pre-procedural CV evaluation Referred by:: Hospitalist Medicine Reason for Consultation:: Painful hemorrhoids - History of Present Illness Chief Complaint: Perineal discomfort History of Present Illness: 81 year old female with a history of CAD s/p stent x 1, HTN, COPD, and GERD presented with perineal discomfort and difficulty defecating. In the ED she was noted to have a thrombosed hemorrhoid, which was incised and drained. Started on bowel regimen, plan for colonoscopy. She denies chest pain, near or true syncope, palpitations, orthopnea, PND, LE edema or change in exercise capacity. ER course was notable for: (1) AXR: no fecal impaction or obstruction (2) WBC mildly elevated at 11.7 (3) BUN elevated at 30 - History Source History Provided By: Patient Limitations to Obtaining History: No Limitations - Past Medical History Cardio/Vascular: Yes: CAD (s/p stent), HTN Pulmonary: Yes: COPD Gastrointestinal: Yes: GERD - Alcohol/Substance Use Hx Alcohol Use: No - Smoking History Smoking history: Former smoker Have you smoked in the past 12 months: No Aproximately how many cigarettes per day: 20 If you are a former smoker, when did you quit?: 21 YRS AGO Home Medications - Allergies Allergies/Adverse Reactions: Allergies Allergy/AdvReac Type Severity Reaction Status Date / Time codeine [Codeine] Allergy Severe RESPIRATORY Verified 09/16/17 08:48 DISTRESS - Home Medications Home Medications: Ambulatory Orders Atorvastatin Ca [Lipitor] 80 mg PO HS 01/19/13 Docusate Sodium [Colace -] 200 mg PO HS 01/19/13 Metoprolol Succinate [Toprol XL -] 50 mg PO DAILY 01/19/13 Omeprazole [Prilosec (RX)] 20 mg PO DAILY 01/19/13 Salmeterol/Fluticasone [Advair 250Mcg/50Mcg -] 1 inh IH BID 01/19/13 Aspirin Coated [Ecotrin -] 81 mg PO DAILY tablet.ec 04/27/16 Albuterol Sulfate [Proair Respiclick] 90 mcg IH DAILY 10/29/16 Umeclidinium [place] [Incruse Ellipta] 62.5 mcg IH DAILY 10/29/16 Valsartan/Hydrochlorothiazide [Valsartan-Hctz 80-12.5 mg Tab] 1 each PO DAILY Furosemide [Lasix] 20 mg PO ASDIR 09/16/17 Review of Systems - Review of Systems Gastrointestinal: reports: Other (Perineal discomfort) Vital Signs: Vital Signs Temperature 98.7 F 09/17/17 14:00 Pulse Rate 71 09/17/17 14:00 Respiratory Rate 18 09/17/17 14:00 Blood Pressure 107/35 09/17/17 14:00 O2 Sat by Pulse Oximetry (%) 98 09/17/17 14:00 Constitutional: Yes: No Distress, Calm, Thin Neck: Yes: Supple Respiratory: Yes: Regular, Diminished Gastrointestinal: Yes: Normal Bowel Sounds, Soft Cardiovascular: Yes: Regular Rate and Rhythm JVD: No Carotid Bruit: No Heart Sounds: Yes: S1, S2 Edema: No - Other Data Labs, Other Data: CBC, BMP 09/17/17 07:00 09/17/17 07:00 NSR @ 65 Imaging - Results Chest X-ray: Report Reviewed (NAD) Problem List - Problems (1) Pre-procedural cardiovascular examination Code(s): Z01.810 - ENCOUNTER FOR PREPROCEDURAL CARDIOVASCULAR EXAMINATION (2) Constipation Code(s): K59.00 - CONSTIPATION, UNSPECIFIED Qualifiers: Constipation type: unspecified constipation type Qualified Code(s): K59.00 - Constipation, unspecified (3) HTN (hypertension) Code(s): I10 - ESSENTIAL (PRIMARY) HYPERTENSION Qualifiers: Hypertension type: essential hypertension Qualified Code(s): I10 - Essential (primary) hypertension (4) Thrombosed external hemorrhoid Code(s): K64.5 - PERIANAL VENOUS THROMBOSIS (5) COPD (chronic obstructive pulmonary disease) with acute bronchitis Code(s): J44.0 - CHRONIC OBSTRUCTIVE PULMON DISEASE W ACUTE LOWER RESP INFCT (6) Coronary artery disease Code(s): I25.10 - ATHSCL HEART DISEASE OF [place] CORONARY ARTERY W/O ANG PCTRS Qualifiers: Coronary Disease-Associated Artery/Lesion type: [place] artery [place] vs. transplanted heart: [place] heart Associated angina: without angina Qualified Code(s): I25.10 - Atherosclerotic heart disease of [place] coronary artery without angina pectoris (7) Diastolic dysfunction without heart failure Code(s): I51.9 - HEART DISEASE, UNSPECIFIED (8) Hyperlipidemia Code(s): E78.5 - HYPERLIPIDEMIA, UNSPECIFIED Qualifiers: Hyperlipidemia type: pure hypercholesterolemia Qualified Code(s): E78.00 - Pure hypercholesterolemia, unspecified; E78.0 - Pure hypercholesterolemia (9) Hypertensive cardiomegaly without heart failure Code(s): I11.9 - HYPERTENSIVE HEART DISEASE WITHOUT HEART FAILURE (10) S/P drug eluting coronary stent placement Code(s): Z95.5 - PRESENCE OF CORONARY ANGIOPLASTY IMPLANT AND GRAFT Assessment/Plan 1. Thrombosed external hemorrhoids 2. CAD s/p PCI (stent), angina pectoris 3. HTN 4. Hyperlipidemia 5. COPD 6. Diastolic dsyfunction, euvolemic P. 1. Given absence of sxs of acute coronary syndrome, decompensated CHF or malignant arrhythmia, may proceed with colonoscopy from CV-standpoint without further testing, review outpatient records 2. Ideally continue ASA 81 qd hieu-procedure if possible to reduce risks of very late stent thrombosis, continue Lipitor 80 qhs, Toprol XL 50 qd, Diovan- HCT 80/12.5 qd, Lasix 20 qd 3. Bowel regimen, topical analgesia as needed, Sitz baths 4. BD, O2 as needed 5. Thank you for consultative opportunity
[2017-09-17 16:31] LABS: URINE BILIRUBIN Negative (NEGATIVE); URINE GLUCOSE (UA) Negative (NEGATIVE); URINE KETONE Trace (NEGATIVE); URINE NITRITE Negative (NEGATIVE); URINE UROBILINOGEN 0.2 (0.2-1.0)
[2017-09-17 16:35] LABS: URINE APPEARANCE CLOUDY; URINE BLOOD 2+ (NEGATIVE); URINE COLOR YELLOW; URINE PROTEIN 1+ (NEGATIVE)
[2017-09-17 18:09] LABS: EPI CELLS FEW /HPF; URINE BACTERIA FEW /hpf (NEGATIVE)
--- NOTE | 2017-09-17 19:25 | CONS ---
DATE OF CONSULTATION: 09/17/2017 I was asked to evaluate this 81-year-old female admitted with constipation, rectal pain, and external thrombosed hemorrhoids. The patient is an 81-year-old female with a history of hypertension, coronary artery disease, COPD and gastroesophageal reflux. She also has had a history of gradual weight loss over the past year of over 50 pounds with constipation. She has not had a colonoscopy to date. The patient was seen in the emergency room and had lysis of a thrombosed hemorrhoids and also given citrate of magnesia and enema, and some IV morphine for pain control. The patient is currently seen resting in bed with some continued rectal discomfort. She is status post appendectomy, cholecystectomy in the past. The patient had an abdominal x-ray showing no fecal impaction or obstruction. Her laboratory tests at the time of admission included a white count of 11.7 which is now 9.7 and a hemoglobin of 10.8, hematocrit 32% with normal red cell indices. The patient denies any personal history of colitis or polyps, but as noted has not had a prior colonoscopy. There was no family history of GI illness or malignancy. PHYSICAL EXAMINATION: General: The patient is a well developed, slightly frail-appearing elderly female, alert, with rectal discomfort. HEENT: Her conjunctivae are pink. Lungs: Have some distant breath sounds consistent with COPD. Cardiac: Regular rate and rhythm on cardiac exam. Abdomen: Soft flat and nontender. There is a thrombosed external hemorrhoid noted. Patient with constipation, weight loss, and a thrombosed external hemorrhoid. Will require management of the hemorrhoid for surgery, possibly further excision of the clot or possibly more definite hemorrhoid surgery. In the interim, will recommend a colonoscopy to rule out any lower GI tract pathology causing the constipation, straining, and subsequent hemorrhoid. Suggest use of lidocaine gel as needed for pain and sitz bath. Will follow. WU ERDD M.D. CHIQUIS/[id number]
--- NOTE | 2017-09-17 21:08 | CONSULT ---
Consult Consult Specialty:: Surgery Reason for Consultation:: Pain due to hemorrhoids - History of Present Illness History of Present Illness: 81 female consulted for painful hemorrhoids Had drainage at the bedside previously Still with some pain Awaiting colonoscopy to further evaluate remainder of colon - History Source History Provided By: Patient, Medical Record Limitations to Obtaining History: No Limitations - Past Medical History Cardio/Vascular: Yes: CAD (s/p stent), HTN Pulmonary: Yes: COPD Gastrointestinal: Yes: GERD - Alcohol/Substance Use Hx Alcohol Use: No - Smoking History Smoking history: Former smoker Have you smoked in the past 12 months: No Aproximately how many cigarettes per day: 20 If you are a former smoker, when did you quit?: 21 YRS AGO Home Medications - Allergies Allergies/Adverse Reactions: Allergies Allergy/AdvReac Type Severity Reaction Status Date / Time codeine [Codeine] Allergy Severe RESPIRATORY Verified 09/16/17 08:48 DISTRESS - Home Medications Home Medications: Ambulatory Orders Atorvastatin Ca [Lipitor] 80 mg PO HS 01/19/13 Docusate Sodium [Colace -] 200 mg PO HS 01/19/13 Metoprolol Succinate [Toprol XL -] 50 mg PO DAILY 01/19/13 Omeprazole [Prilosec (RX)] 20 mg PO DAILY 01/19/13 Salmeterol/Fluticasone [Advair 250Mcg/50Mcg -] 1 inh IH BID 01/19/13 Aspirin Coated [Ecotrin -] 81 mg PO DAILY tablet.ec 04/27/16 Albuterol Sulfate [Proair Respiclick] 90 mcg IH DAILY 10/29/16 Umeclidinium [place] [Incruse Ellipta] 62.5 mcg IH DAILY 10/29/16 Valsartan/Hydrochlorothiazide [Valsartan-Hctz 80-12.5 mg Tab] 1 each PO DAILY Furosemide [Lasix] 20 mg PO ASDIR 09/16/17 Review of Systems - Review of Systems Constitutional: denies: Chills, Fever HENT: reports: No Symptoms Neck: reports: No Symptoms Cardiovascular: denies: Chest Pain Respiratory: denies: Cough Gastrointestinal: reports: Rectal Bleeding, Other (Rectal pain). denies: Abdominal Pain Neurological: denies: Change in LOC Pain Intensity: 3 Physical Exam Vital Signs: Vital Signs Temperature 98.7 F 09/17/17 14:00 Pulse Rate 74 09/17/17 18:00 Respiratory Rate 16 09/17/17 18:00 Blood Pressure 97/44 09/17/17 18:00 O2 Sat by Pulse Oximetry (%) 97 09/17/17 18:00 Constitutional: Yes: Calm Neck: Yes: WNL Cardiovascular: Yes: WNL Respiratory: Yes: Regular Gastrointestinal: Yes: Soft. No: Distention, Tenderness ...Rectal Exam: Yes: Deferred (Due to pain) Neurological: Yes: Alert, Oriented Labs: CBC, BMP 09/17/17 07:00 09/17/17 07:00 Problem List - Problems (1) Thrombosed external hemorrhoid Code(s): K64.5 - PERIANAL VENOUS THROMBOSIS Assessment/Plan Await colonoscopy and medical clearance Plan for exam under anesthesia and hemorrhoidectoy in OR
[2017-09-17] MEDS: ASPIRIN COATED 81 MG TABLET.EC PO SCH (21:09)
[2017-09-17] MEDS: SENNOSIDES 8.6MG TABLET (FP) PO SCH (21:09)
[2017-09-17] MEDS: METOPROLOL SUCCINATE 50 MG TAB.SR.24H (FP) PO SCH (21:10)
[2017-09-17] MEDS ORDERED: MELATONIN 5 MG TABLETS PO PRN (22:00)
[2017-09-18] MEDS: SODIUM CHLORIDE 1,000 ML IV SCH (00:13)
[2017-09-18] MEDS: DOCUSATE SODIUM 100 MG CAPSULE (FP) PO SCH ×3 (05:53→22:11)
[2017-09-18] MEDS ORDERED: PT OWN MED DRAWER 7, Y5N ONE ×2 (09:36→22:14)
--- NOTE | 2017-09-18 09:49 | PN ---
Physical Exam: SUBJECTIVE: Patient seen and examined Pt reports mild rectal discomfort, denies hematochezia,cp,sob,palpitations, abdominal pain, N/V/D. OBJECTIVE: Vital Signs Period Temp Pulse Resp BP Sys/Oh Pulse Ox Last 24 Hr 97.9 F-98.7 F 65-74 16-18 95-114/35-67 96-98 GENERAL: The patient is awake, alert, and fully oriented, in no acute distress. HEAD: Normal with no signs of trauma. EYES: PERRL, extraocular movements intact, sclera anicteric, conjunctiva clear. No ptosis. ENT: Ears normal, nares patent, oropharynx clear without exudates, moist mucous membranes. NECK: Trachea midline, full range of motion, supple. LUNGS: Breath sounds equal, clear to auscultation bilaterally, no wheezes, no crackles, no accessory muscle use. HEART: Regular rate and rhythm, S1, S2 without murmur, rub or gallop. ABDOMEN: Soft, nontender, nondistended, normoactive bowel sounds, no guarding, no rebound, no hepatosplenomegaly, no masses. EXTREMITIES: 2+ pulses, warm, well-perfused, no edema. NEUROLOGICAL: Cranial nerves II through XII grossly intact. Normal speech, gait not observed. PSYCH: Normal mood, normal affect. SKIN: Warm, dry, normal turgor, no rashes or lesions noted Laboratory Results - last 24 hr 09/17/17 16:00 Urine Color Yellow Urine Appearance Cloudy Urine pH 6.0 Ur Specific [place] 1.015 Urine Protein 1+ H Urine Glucose (UA) Negative Urine Ketones Trace Urine Blood 2+ H Urine Nitrite Negative Urine Bilirubin Negative Urine Urobilinogen 0.2 Ur Leukocyte Esterase 3+ H Urine RBC 2-5 Urine WBC 10-20 Ur Epithelial Cells Few Urine Bacteria Few Active Medications Generic Name Dose Route Start Last Admin Trade Name Freq PRN Reason Stop Dose Admin Acetaminophen 650 mg 09/16/17 13:33 Tylenol - PO Q4H PRN PAIN LEVEL 1-5 Albuterol Sulfate 1 amp 09/17/17 12:36 Ventolin 0.083% Nebulizer Soln - NEB Q4H PRN SHORT OF BREATH/WHEEZING Aspirin 81 mg 09/17/17 22:00 09/17/17 21:09 Ecotrin - PO 81 mg HS YESSENIA Administration Atorvastatin Calcium 80 mg 09/17/17 13:15 09/17/17 13:18 Lipitor - PO 80 mg DAILY YESSENIA Administration Bacitracin 1 applic 09/17/17 13:15 09/17/17 21:08 Bacitracin - TP 1 applic BID YESSENIA Administration Budesonide/Formoterol Fumarate 2 puff 09/16/17 13:32 09/17/17 21:10 Symbicort 80/4.5mcg - IH 2 puff BID YESSENIA Administration Docusate Sodium 200 mg 09/16/17 14:00 09/18/17 05:53 Colace - PO Not Given TID YESSENIA Furosemide 20 mg 09/16/17 13:33 09/17/17 13:38 Lasix - PO Not Given ASDIR YESSENIA Hydrochlorothiazide 12.5 mg 09/16/17 16:30 09/17/17 09:54 Hctz - PO Not Given DAILY [facility] Sodium Chloride 1,000 mls @ 42 mls/hr 09/17/17 00:30 09/18/17 00:13 Normal Saline - IV 42 mls/hr ASDIR YESSENIA Administration Melatonin 5 mg 09/17/17 22:00 09/17/17 22:31 Melatonin PO 5 mg HS PRN Administration Metoprolol Succinate 50 mg 09/16/17 22:00 09/17/17 21:10 Toprol Xl - PO 50 mg HS YESSENIA Administration Morphine Sulfate 2 mg 09/16/17 13:33 09/16/17 17:11 Morphine Injection - IVPUSH 2 mg Q4H PRN Administration PAIN LEVEL 6-10 Non-Formulary Medication 62.5 mcg 09/16/17 13:45 09/17/17 10:37 Umeclidinium [place] [Incruse Ellipta] IH 62.5 mcg DAILY YESSENIA Administration Pantoprazole Sodium 20 mg 09/16/17 13:32 09/17/17 09:54 Protonix - PO 20 mg DAILY YESSENIA Administration Polyethylene Glycol 17 gm 09/16/17 13:45 09/17/17 21:09 Miralax (For Daily Use) - PO Not Given BID YESSENIA Senna 2 tab 09/16/17 22:00 09/17/17 21:09 Senna - PO Not Given HS YESSENIA Valsartan 80 mg 09/16/17 16:30 09/17/17 09:54 Diovan - PO Not Given DAILY YESSENIA IMAGING CxR- No acute pathology Abdominal X'ray:No obstruction ASSESSMENT/PLAN: Patient is 81 year old female with a history of CAD s/p stent x 1, HTN, COPD, and GERD,who presented to the ED today with rectal pain and difficulty with defecation x 1 week. GI *Thrombosed external hemorrhoid - s/p I&D, 09/16/17, continue bacitracain BID - GI following - Plan colonoscopy likely on Sunday - cardiology cleared for colonoscopy -Lidocaine gel / Sitz PRN -surgical input appreciated *constipation- had BM after laxative - will cont on laxatives - continue high fiber diet *GERD - continue home dose protonix cardiovascular *Hypertension- BP improving -- will hold off on HCTZ - will cont on valsartan,Lasix and metoprolol with holding parameters - continue vital signs q4h - will f/u on NA *CAD - continue ASA, statin Pulm *COPD- no acute excerbation at this time. - continue symbicort and prn albuterol f/e/n - on clears for colonoscopy prep - replete electrolytes prn ppx - scd - oob - PT Visit type - Emergency Visit Emergency Visit: Yes ED Registration Date: 09/16/17 Care time: The patient presented to the Emergency Department on the above date and was hospitalized for further evaluation of their emergent condition. - New Patient This patient is new to me today: Yes Date on this admission: 09/18/17 - Critical Care Critical Care patient: No
[2017-09-18] MEDS ORDERED: ASPIRIN COATED 81 MG TABLET.EC PO SCH (10:00)
[2017-09-18] MEDS ORDERED: HYDROCORTISONE ACETATE 25 MG/SUPP.RECT RC ONE (10:35)
[2017-09-18] MEDS: BACITRACIN 15 GM TUBE TOPICAL OINTMENT TP SCH ×2 (10:52→22:10)
[2017-09-18] MEDS: PATIENT'S OWN MEDICATION (NON-FORMULARY) (Umeclidinium Bromide [Incruse Ellipta] 62.5 MCG) IH SCH (10:52)
[2017-09-18] MEDS: VALSARTAN 80 MG TABLET (UD) PO SCH (10:52)
[2017-09-18] MEDS: ATORVASTATIN CA 80 MG TABLET (FP) PO SCH (10:52)
[2017-09-18] MEDS: POLYETHYLENE GLYCOL 3350 119 GM BTL PO SCH ×2 (10:52→22:12)
[2017-09-18] MEDS: BUDESONIDE/FORMETEROL FUMARATE 80/4.5 mcg INHALER IH SCH ×2 (10:53→22:14)
[2017-09-18] MEDS: PANTOPRAZOLE 20 MG TABLET (FP) PO SCH (10:54)
[2017-09-18] MEDS ORDERED: FLUOCINONIDE 0.05% GEL (15 GM) TP PRN (11:14)
[2017-09-18] MEDS ORDERED: LIDOCAINE HCL 2% JELLY (5 ML/TUBE) TP PRN (12:23)
[2017-09-18] MEDS: LIDOCAINE HCL 2% JELLY (30 ML/TUBE) TP PRN ×3 (12:34→22:10)
--- NOTE | 2017-09-18 12:47 | PN ---
Progress Note (short form) - Note Progress Note: Patient feels better after good night's sleep; still with rectal pain due to hemorrhoid. Being prepped for colonoscopy tomorrow; worried about findings as father had colorectal cancer. Abdomen soft +BS nontender. Cleared by Cardiology for colonoscopy.
[2017-09-18] MEDS ORDERED: PEG3350/SOD SULF,BICARB,CL/KCL 4,000 ML SOLN.RECON PO ONE (13:45)
--- NOTE | 2017-09-18 16:52 | CON.PULM ---
Consult Consult Specialty:: PULMONARY Referred by:: RAJNI Reason for Consultation:: PULMONARY CLEARANCE FOR COLONOSCOPY - History of Present Illness Chief Complaint: CONSTIPATION History of Present Illness: This is an 81 year old female with a history of CAD s/p stent x 1, HTN, COPD, and GERD who presented to the ED today with rectal pain and difficulty with defacation x 1 week. She has been able to pass only a very small amount of stool and has a sensation of incomplete evacuation. She denies abdominal pain, n /v, fevers/chills, or any other symptoms. In the ED she was noted to have a thrombosed hemorrhoid, which was incised and drained. She was given magnesium citrate and an enema and was able to have a small bowel movement, but continues to have rectal pain which required administration of IV morphine. Patient is a former smoker, worked as a rn quality and has had constipation and hemorrhoidal issues in past. - History Source History Provided By: Patient Limitations to Obtaining History: Clinical Condition - Past Medical History IMPLEMENTATION ADVISOR: No: Alzheimer's Cardio/Vascular: Yes: CAD (s/p stent), HTN Pulmonary: Yes: COPD Gastrointestinal: Yes: GERD - Past Surgical History Past Surgical History: Yes: Appendectomy, Cholecystectomy - Alcohol/Substance Use Hx Alcohol Use: No - Smoking History Smoking history: Former smoker Have you smoked in the past 12 months: No Aproximately how many cigarettes per day: 20 If you are a former smoker, when did you quit?: 21 YRS AGO - Social History Place of : [facility] History of Recent Travel: No Home Medications - Allergies Allergies/Adverse Reactions: Allergies Allergy/AdvReac Type Severity Reaction Status Date / Time codeine [Codeine] Allergy Severe RESPIRATORY Verified 09/16/17 08:48 DISTRESS - Home Medications Home Medications: Ambulatory Orders Atorvastatin Ca [Lipitor] 80 mg PO HS 01/19/13 Docusate Sodium [Colace -] 200 mg PO HS 01/19/13 Metoprolol Succinate [Toprol XL -] 50 mg PO DAILY 01/19/13 Omeprazole [Prilosec (RX)] 20 mg PO DAILY 01/19/13 Salmeterol/Fluticasone [Advair 250Mcg/50Mcg -] 1 inh IH BID 01/19/13 Aspirin Coated [Ecotrin -] 81 mg PO DAILY tablet.ec 04/27/16 Albuterol Sulfate [Proair Respiclick] 90 mcg IH DAILY 10/29/16 Umeclidinium [place] [Incruse Ellipta] 62.5 mcg IH DAILY 10/29/16 Valsartan/Hydrochlorothiazide [Valsartan-Hctz 80-12.5 mg Tab] 1 each PO DAILY Furosemide [Lasix] 20 mg PO ASDIR 09/16/17 Family Disease History - Family Disease History Family History: Unremarkable Review of Systems - Review of Systems HENT: denies: Difficult Swallowing Neck: denies: Decreased ROM Respiratory: reports: SOB on Exertion. denies: Hemoptysis, Orthopnea, Wheezing Gastrointestinal: reports: Bloating, Constipation Genitourinary: reports: No Symptoms Physical Exam Vital Sings: Vital Signs Temperature 97.9 F 09/18/17 10:00 Pulse Rate 65 09/18/17 10:00 Respiratory Rate 17 09/18/17 10:00 Blood Pressure 114/67 09/18/17 10:00 O2 Sat by Pulse Oximetry (%) 96 09/18/17 08:00 Constitutional: Yes: Anxious Eyes: Yes: EOM Intact HENT: Yes: Normocephalic Neck: Yes: Trachea Midline Cardiovascular: Yes: Regular Rate and Rhythm, S1, S2 Respiratory: Yes: CTA Bilaterally Gastrointestinal: Yes: Normal Bowel Sounds Edema: No Neurological: Yes: Alert Labs: CBC, BMP 09/17/17 07:00 09/17/17 07:00 rest reviewed Imaging - Results Chest X-ray: Report Reviewed, Image Reviewed EKG: Report Reviewed, Image Reviewed Problem List - Problems (1) HTN (hypertension) Code(s): I10 - ESSENTIAL (PRIMARY) HYPERTENSION Qualifiers: Hypertension type: essential hypertension Qualified Code(s): I10 - Essential (primary) hypertension (2) Thrombosed external hemorrhoid Code(s): K64.5 - PERIANAL VENOUS THROMBOSIS (3) Atherosclerotic heart disease Code(s): I25.10 - ATHSCL HEART DISEASE OF [place] CORONARY ARTERY W/O ANG PCTRS (4) CHF (congestive heart failure) Code(s): I50.9 - HEART FAILURE, UNSPECIFIED Qualifiers: Congestive heart failure type: unspecified congestive heart failure type (5) COPD (chronic obstructive pulmonary disease) with acute bronchitis Code(s): J44.0 - CHRONIC OBSTRUCTIVE PULMON DISEASE W ACUTE LOWER RESP INFCT Assessment/Plan Pulmonary status is stable. Patient is cleared from a pulmonary standpoint for colonoscopy. O2 supplementation to keep SPO2 greater than 90% Bronchodilators as needed Brandi STOKES MD
[2017-09-18] MEDS: FUROSEMIDE 20 MG TABLET (FP) PO SCH (17:57)
[2017-09-18] MEDS: METOPROLOL SUCCINATE 50 MG TAB.SR.24H (FP) PO SCH (22:12)
[2017-09-18] MEDS: SENNOSIDES 8.6MG TABLET (FP) PO SCH (22:12)
[2017-09-18] MEDS: ASPIRIN COATED 81 MG TABLET.EC PO SCH ×2 (22:12→22:22)
[2017-09-19] MEDS: DOCUSATE SODIUM 100 MG CAPSULE (FP) PO SCH ×2 (06:02→13:23)
[2017-09-19] MEDS ORDERED: PROPOFOL 20 ML ONE (06:56)
[2017-09-19] MEDS: SODIUM CHLORIDE 1,000 ML IV SCH (07:05)
[2017-09-19] MEDS ORDERED: LIDOCAINE HCL/PF 2% SDV 5ML VIAL ONE (07:55)
[2017-09-19 08:54] LABS: BASO % 0.8 % (0-2.0); EOS % 8.3 % (0-4.5); HEMATOCRIT 30.7 % (32.4-45.2); HEMOGLOBIN 10.1 GM/dl (10.7-15.3); LYMPH % 18.6 % (8-40); MCH 30.9 pg (25.7-33.7); MEAN CELL VOLUME 93.6 fl (80-96); MEAN PLT VOLUME 9.6 fl (7.5-11.1); MONO % 12.9 % (3.8-10.2); NEUT % 59.4 % (42.8-82.8); PLATELET COUNT 235 K/MM3 (134-434); RBC 3.28 M/mm3 (3.60-5.2); RDW 13.9 % (11.6-15.6); WHITE BLOOD COUNT 5.5 K/mm3 (4.0-10.8)
--- NOTE | 2017-09-19 09:04 | PN ---
Physical Exam: SUBJECTIVE: Patient seen and examined, sitting up in bed, tolerating regular diet, reports feeling much improved. OBJECTIVE:Patient is 81 year old female with a history of CAD s/p stent x 1, HTN , COPD, and GERD,who presented to the ED today with rectal pain and difficulty with defecation x 1 week. Vital Signs Period Temp Pulse Resp BP Sys/Ho Pulse Ox Last 24 Hr 97.8 F-98.7 F 65-69 17-18 110-141/38-67 96-100 GENERAL: The patient is awake, alert, and fully oriented, in no acute distress. HEAD: Normal with no signs of trauma. EYES: PERRL, extraocular movements intact, sclera anicteric, conjunctiva clear. No ptosis. ENT: Ears normal, nares patent, oropharynx clear without exudates, moist mucous membranes. NECK: Trachea midline, full range of motion, supple. LUNGS: Breath sounds equal, clear to auscultation bilaterally, no wheezes, no crackles, no accessory muscle use. HEART: Regular rate and rhythm, S1, S2 without murmur, rub or gallop. ABDOMEN: Soft, nontender, nondistended, normoactive bowel sounds, no guarding, no rebound, no hepatosplenomegaly, no masses. EXTREMITIES: 2+ pulses, warm, well-perfused, no edema. NEUROLOGICAL: Cranial nerves II through XII grossly intact. Normal speech, gait not observed. PSYCH: Normal mood, normal affect. SKIN: Warm, dry, normal turgor, no rashes or lesions noted Active Medications Generic Name Dose Route Start Last Admin Trade Name Freq PRN Reason Stop Dose Admin Acetaminophen 650 mg 09/16/17 13:33 Tylenol - PO Q4H PRN PAIN LEVEL 1-5 Albuterol Sulfate 1 amp 09/17/17 12:36 Ventolin 0.083% Nebulizer Soln - NEB Q4H PRN SHORT OF BREATH/WHEEZING Aspirin 81 mg 09/17/17 22:00 09/18/17 22:22 Ecotrin - PO 81 mg HS YESSENIA Administration Atorvastatin Calcium 80 mg 09/17/17 13:15 09/18/17 10:52 Lipitor - PO 80 mg DAILY YESSENIA Administration Bacitracin 1 applic 09/17/17 13:15 09/18/17 22:10 Bacitracin - TP 1 applic BID YESSENIA Administration Budesonide/Formoterol Fumarate 2 puff 09/16/17 13:32 09/18/17 22:14 Symbicort 80/4.5mcg - IH 2 puff BID YESSENIA Administration Docusate Sodium 200 mg 09/16/17 14:00 09/19/17 06:02 Colace - PO Not Given TID YESSENIA Furosemide 20 mg 09/16/17 13:33 09/18/17 17:57 Lasix - PO Not Given ASDIR YESSENIA Sodium Chloride 1,000 mls @ 42 mls/hr 09/17/17 00:30 09/18/17 00:13 Normal Saline - IV 42 mls/hr ASDIR YESSENIA Administration Lidocaine HCl 1 applic 09/18/17 12:28 09/18/17 22:10 Xylocaine 2% Jelly TP 1 applic TID PRN Administration rectal pain Melatonin 5 mg 09/17/17 22:00 09/17/17 22:31 Melatonin PO 5 mg HS PRN Administration Metoprolol Succinate 50 mg 09/16/17 22:00 09/18/17 22:12 Toprol Xl - PO 50 mg HS YESSENIA Administration Morphine Sulfate 2 mg 09/16/17 13:33 09/16/17 17:11 Morphine Injection - IVPUSH 2 mg Q4H PRN Administration PAIN LEVEL 6-10 Non-Formulary Medication 62.5 mcg 09/16/17 13:45 09/18/17 10:52 Umeclidinium [place] [Incruse Ellipta] IH 62.5 mcg DAILY YESSENIA Administration Pantoprazole Sodium 20 mg 09/16/17 13:32 09/18/17 10:54 Protonix - PO 20 mg DAILY YESSENIA Administration Polyethylene Glycol 17 gm 09/16/17 13:45 09/18/17 22:12 Miralax (For Daily Use) - PO Not Given BID YESSENIA Senna 2 tab 09/16/17 22:00 09/18/17 22:12 Senna - PO Not Given HS YESSENIA Valsartan 80 mg 09/18/17 09:56 09/18/17 10:52 Diovan - PO 80 mg DAILY YESSENIA Administration Microbiology 09/17/17 16:00 Urine - Urine Clean Catch Urine Culture - Preliminary Lactose Fermenting Neg Bacilli IMAGING CxR- No acute pathology Abdominal xray:No obstruction ASSESSMENT/PLAN: 1)GI *Thrombosed external hemorrhoid - s/p I&D, 09/16/17, continue bacitracain BID - GI following, colonoscopy today by Dr Lemus, follow up pathology - cardiology cleared for colonoscopy -Lidocaine gel / Sitz PRN -surgical input appreciated *constipation resolved - will cont on laxatives - continue high fiber diet 2) GERD - continue home dose protonix 3) cardiovascular *Hypertension- BP improving -- will hold off on HCTZ - will cont on valsartan,Lasix and metoprolol with holding parameters - continue vital signs q4h *CAD - continue ASA, statin 4) Pulm *COPD- no acute excerbation at this time. - continue symbicort and prn albuterol 5) urinary tract infection - urine culture, prelim +, start rocephin, pending final f/e/n - high fiber diet - replete electrolytes prn ppx - scd - oob - PT Visit type - Emergency Visit Emergency Visit: Yes ED Registration Date: 09/16/17 Care time: The patient presented to the Emergency Department on the above date and was hospitalized for further evaluation of their emergent condition. - New Patient This patient is new to me today: No - Critical Care Critical Care patient: No - Discharge Referral Referred to [facility] No
--- NOTE | 2017-09-19 09:12 | PN ---
Progress Note, Physician History of Present Illness: Planned for colonoscopy today. She denies chest pain, near or true syncope, palpitations, orthopnea, PND, LE edema or change in exercise capacity. - Current Medication List Current Medications: Active Medications Acetaminophen (Tylenol -) 650 mg PO Q4H PRN PRN Reason: PAIN LEVEL 1-5 Albuterol Sulfate (Ventolin 0.083% Nebulizer Soln -) 1 amp NEB Q4H PRN PRN Reason: SHORT OF BREATH/WHEEZING Aspirin (Ecotrin -) 81 mg PO HS [facility] Last Admin: 09/18/17 22:22 Dose: 81 mg Atorvastatin Calcium (Lipitor -) 80 mg PO DAILY [facility] Last Admin: 09/18/17 10:52 Dose: 80 mg Bacitracin (Bacitracin -) 1 applic TP BID [facility] Last Admin: 09/18/17 22:10 Dose: 1 applic Budesonide/Formoterol Fumarate (Symbicort 80/4.5mcg -) 2 puff IH BID [facility] Last Admin: 09/18/17 22:14 Dose: 2 puff Docusate Sodium (Colace -) 200 mg PO TID [facility] Last Admin: 09/19/17 06:02 Dose: Not Given Furosemide (Lasix -) 20 mg PO ASDIR [facility] Last Admin: 09/18/17 17:57 Dose: Not Given Sodium Chloride (Normal Saline -) 1,000 mls @ 42 mls/hr IV ASDIR [facility] Last Admin: 09/18/17 00:13 Dose: 42 mls/hr Lidocaine HCl (Xylocaine 2% Jelly) 1 applic TP TID PRN PRN Reason: rectal pain Last Admin: 09/18/17 22:10 Dose: 1 applic Melatonin (Melatonin) 5 mg PO HS PRN Last Admin: 09/17/17 22:31 Dose: 5 mg Metoprolol Succinate (Toprol Xl -) 50 mg PO HS [facility] Last Admin: 09/18/17 22:12 Dose: 50 mg Morphine Sulfate (Morphine Injection -) 2 mg IVPUSH Q4H PRN PRN Reason: PAIN LEVEL 6-10 Last Admin: 09/16/17 17:11 Dose: 2 mg Non-Formulary Medication (Umeclidinium [place] [Incruse Ellipta]) 62.5 mcg IH DAILY [facility] Last Admin: 09/18/17 10:52 Dose: 62.5 mcg Pantoprazole Sodium (Protonix -) 20 mg PO DAILY [facility] Last Admin: 09/18/17 10:54 Dose: 20 mg Polyethylene Glycol (Miralax (For Daily Use) -) 17 gm PO BID [facility] Last Admin: 09/18/17 22:12 Dose: Not Given Senna (Senna -) 2 tab PO HS [facility] Last Admin: 09/18/17 22:12 Dose: Not Given Valsartan (Diovan -) 80 mg PO DAILY [facility] Last Admin: 09/18/17 10:52 Dose: 80 mg - Objective Vital Signs: Vital Signs Temperature 97.8 F 09/19/17 05:37 Pulse Rate 66 09/19/17 05:37 Respiratory Rate 17 09/19/17 08:02 Blood Pressure 131/38 09/19/17 05:37 O2 Sat by Pulse Oximetry (%) 98 09/19/17 08:02 Constitutional: Yes: No Distress, Calm, Thin Neck: Yes: Supple Cardiovascular: Yes: Regular Rate and Rhythm Respiratory: Yes: Regular, Diminished Gastrointestinal: Yes: Soft, Hypoactive Bowel Sounds Edema: No Labs: CBC, BMP 09/19/17 07:40 Problem List - Problems (1) Pre-procedural cardiovascular examination Code(s): Z01.810 - ENCOUNTER FOR PREPROCEDURAL CARDIOVASCULAR EXAMINATION (2) Constipation Code(s): K59.00 - CONSTIPATION, UNSPECIFIED Qualifiers: Constipation type: unspecified constipation type Qualified Code(s): K59.00 - Constipation, unspecified (3) HTN (hypertension) Code(s): I10 - ESSENTIAL (PRIMARY) HYPERTENSION Qualifiers: Hypertension type: essential hypertension Qualified Code(s): I10 - Essential (primary) hypertension (4) Thrombosed external hemorrhoid Code(s): K64.5 - PERIANAL VENOUS THROMBOSIS (5) COPD (chronic obstructive pulmonary disease) with acute bronchitis Code(s): J44.0 - CHRONIC OBSTRUCTIVE PULMON DISEASE W ACUTE LOWER RESP INFCT (6) Coronary artery disease Code(s): I25.10 - ATHSCL HEART DISEASE OF [place] CORONARY ARTERY W/O ANG PCTRS Qualifiers: Coronary Disease-Associated Artery/Lesion type: [place] artery [place] vs. transplanted heart: [place] heart Associated angina: without angina Qualified Code(s): I25.10 - Atherosclerotic heart disease of [place] coronary artery without angina pectoris (7) Diastolic dysfunction without heart failure Code(s): I51.9 - HEART DISEASE, UNSPECIFIED (8) Hyperlipidemia Code(s): E78.5 - HYPERLIPIDEMIA, UNSPECIFIED Qualifiers: Hyperlipidemia type: pure hypercholesterolemia Qualified Code(s): E78.00 - Pure hypercholesterolemia, unspecified; E78.0 - Pure hypercholesterolemia (9) Hypertensive cardiomegaly without heart failure Code(s): I11.9 - HYPERTENSIVE HEART DISEASE WITHOUT HEART FAILURE (10) S/P drug eluting coronary stent placement Code(s): Z95.5 - PRESENCE OF CORONARY ANGIOPLASTY IMPLANT AND GRAFT Assessment/Plan 1. Thrombosed external hemorrhoids 2. CAD s/p PCI (stent), angina pectoris 3. HTN 4. Hyperlipidemia 5. COPD 6. Diastolic dsyfunction, euvolemic P. 1. Given absence of sxs of acute coronary syndrome, decompensated CHF or malignant arrhythmia, may proceed with colonoscopy from CV-standpoint without further testing, review outpatient records 2. Ideally continue ASA 81 qd hieu-procedure if possible to reduce risks of very late stent thrombosis, continue Lipitor 80 qhs, Toprol XL 50 qd, Diovan- HCT 80/12.5 qd, Lasix 20 qd 3. Bowel regimen, topical analgesia as needed, Sitz baths 4. BD, O2 as needed 5. F/u colonoscopy and pathology results
[2017-09-19] MEDS ORDERED: LACTOBACILLUS ACIDOPHILUS 1 EACH TAB (FP) PO SCH (10:00)
[2017-09-19] MEDS ORDERED: CEFTRIAXONE 1 G/50 ML PREMIX 50 ML IVPB SCH (10:00)
--- NOTE | 2017-09-19 10:01 | PN ---
Progress Note (short form) - Note Progress Note: Colonoscopy performed to cecum with full report in chart. Colonic mucosa normal throughout with thrombosed external hemorrhoid noted. Rec Resume diet Sitz baths Anusol HC cream bid ?plans for surgery (hemorrhoid) prn Lidocaine gel
[2017-09-19] MEDS: PANTOPRAZOLE 20 MG TABLET (FP) PO SCH (10:57)
[2017-09-19] MEDS: ATORVASTATIN CA 80 MG TABLET (FP) PO SCH (10:57)
[2017-09-19] MEDS: VALSARTAN 80 MG TABLET (UD) PO SCH (10:58)
[2017-09-19 10:59] LABS: ANION GAP 9 (8-16); BLOOD UREA NITROGEN 15 mg/dl (7-18); CALCIUM 8.7 mg/dl (8.4-10.2); CHLORIDE 102 mmol/L (98-107); CO2 26 mmol/L (22-28); GLUCOSE,RANDOM 96 mg/dl (74-106); POTASSIUM 4.6 mmol/L (3.5-5.1); SODIUM 137 mmol/L (136-145)
[2017-09-19] MEDS: BUDESONIDE/FORMETEROL FUMARATE 80/4.5 mcg INHALER IH SCH (10:59)
[2017-09-19] MEDS: POLYETHYLENE GLYCOL 3350 119 GM BTL PO SCH (10:59)
[2017-09-19] MEDS: PATIENT'S OWN MEDICATION (NON-FORMULARY) (Umeclidinium Bromide [Incruse Ellipta] 62.5 MCG) IH SCH (10:59)
[2017-09-19] MEDS ORDERED: PT OWN MED DRAWER 7, Y5N ONE (11:03)
[2017-09-19] MEDS: FUROSEMIDE 20 MG TABLET (FP) PO SCH (13:21)
[2017-09-19] MEDS: BACITRACIN 15 GM TUBE TOPICAL OINTMENT TP SCH (13:22)
[2017-09-19 14:43] VITALS: BP 109/54; PULSE 69; TEMP 97.6
--- NOTE | 2017-09-20 08:12 | DS ---
Physical Exam: SUBJECTIVE: Patient seen and examined OBJECTIVE: Vital Signs Period Temp Pulse Resp BP Sys/Oh Pulse Ox Last 24 Hr 97.6 F-98.1 F 67-69 17-18 109-139/54-54 99-100 PHYSICAL EXAM GENERAL: The patient is awake, alert, and fully oriented, in no acute distress. HEAD: Normal with no signs of trauma. EYES: PERRL, extraocular movements intact, sclera anicteric, conjunctiva clear. ENT: Ears normal, nares patent, oropharynx clear without exudates, moist mucous membranes. NECK: Trachea midline, full range of motion, supple. LUNGS: Breath sounds equal, clear to auscultation bilaterally, no wheezes, no crackles, no accessory muscle use. HEART: Regular rate and rhythm, S1, S2 without murmur, rub or gallop. ABDOMEN: Soft, nontender, nondistended, normoactive bowel sounds, no guarding, no rebound, no hepatosplenomegaly, no masses. EXTREMITIES: 2+ pulses, warm, well-perfused, no edema. NEUROLOGICAL: Cranial nerves II through XII grossly intact. Normal speech, gait not observed. PSYCH: Normal mood, normal affect. SKIN: Warm, dry, normal turgor, no rashes or lesions noted. LABS Laboratory Results - last 24 hr 09/19/17 09/19/17 07:40 07:40 WBC 5.5 D RBC 3.28 L Hgb 10.1 L Hct 30.7 L MCV 93.6 MCH 30.9 MCHC 33.0 RDW 13.9 Plt Count 235 MPV 9.6 Neutrophils % 59.4 Lymphocytes % 18.6 Monocytes % 12.9 H Eosinophils % 8.3 H Basophils % 0.8 Sodium 137 Potassium 4.6 Chloride 102 Carbon Dioxide 26 Anion Gap 9 BUN 15 D Creatinine 1.0 Random Glucose 96 Calcium 8.7 Microbiology 09/17/17 16:00 Urine - Urine Clean Catch Urine Culture - Preliminary Lactose Fermenting Neg Bacilli HOSPITAL COURSE: Date of Admission:09/16/17 Date of Discharge: 09/20/17 Discharge Summary Reason For Visit: THROMBOSED EXTERNAL HEMORRHOIDS Condition: Improved - Instructions Diet, Activity, Other Instructions: Suggest Miralax daily 1/2 dose, sitzbath warm tide water, apply bacitracin ointment after B.M. You may also use Anusol HC suppository if needed. Please take a high fiber diet. Follow up with both Dr. Lucy Munoz, and also follow up with Dr. Carl Nobles (surgeon). A prescription for an antibiotic ( Keflex) for urinary tract infection will be sent to your pharmacy tomorrow. Referrals: Carl Nobles MD [Staff Physician] - Lucy Munoz MD [Primary Care Provider] - Disposition: HOME - Home Medications Comprehensive Discharge Medication List: Ambulatory Orders RX: Atorvastatin Ca [Lipitor] 80 mg PO HS 01/19/13 RX: Docusate Sodium [Colace -] 200 mg PO HS 01/19/13 RX: Metoprolol Succinate [Toprol XL -] 50 mg PO DAILY 01/19/13 RX: Omeprazole [Prilosec (RX)] 20 mg PO DAILY 01/19/13 RX: Salmeterol/Fluticasone [Advair 250Mcg/50Mcg -] 1 inh IH BID 01/19/13 RX: Aspirin Coated [Ecotrin -] 81 mg PO DAILY tablet.ec 04/27/16 RX: Albuterol Sulfate [Proair Respiclick] 90 mcg IH DAILY 10/29/16 RX: Umeclidinium [place] [Incruse Ellipta] 62.5 mcg IH DAILY 10/29/16 RX: Valsartan/Hydrochlorothiazide [Valsartan-Hctz 80-12.5 mg Tab] 1 each PO DAILY 10/29/16 RX: Furosemide [Lasix] 20 mg PO ASDIR 09/16/17 Cephalexin [Keflex] 500 mg PO BID #14 capsule 09/20/17 RX: Acetaminophen [Tylenol .Regular Strength -] 650 mg PO Q4H PRN tablet RX: Bacitracin - [Bacitracin Topical Ointment -] 1 applic TP BID #1 tube RX: Lactobacillus Acidophilus [Bacid -] 1 tab PO DAILY #30 tab 09/20/17 RX: Sennosides [Senna -] 2 tab PO HS #60 tablet 09/20/17 - Discharge Referral Referred to [facility] No
== END 2017-09-19 17:13 | disposition home or self-care (01) ==
LOC: FER 08:47 → FM/S 13:22
PROVIDERS: ADMIT Internal Medicine; ATTEND Nurse Practitioner Family
PROC: 0DJD8ZZ Inspection of Lower Intestinal Tract, Via Natural or Artificial Opening Endoscopic (ICD-10-PCS; principal; 2017-09-16)
DX: K64.5 Perianal venous thrombosis (principal); K59.00 Constipation, unspecified; I10 Essential (primary) hypertension; I51.9 Heart disease, unspecified; I11.9 Hypertensive heart disease without heart failure; I25.10 Atherosclerotic heart disease of native coronary artery without angina pectoris; J44.0 Chronic obstructive pulmonary disease with (acute) lower respiratory infection; K21.9 Gastro-esophageal reflux disease without esophagitis; E78.5 Hyperlipidemia, unspecified; Z79.82 Long term (current) use of aspirin; Z95.5 Presence of coronary angioplasty implant and graft; Z80.0 Family history of malignant neoplasm of digestive organs; Z87.891 Personal history of nicotine dependence
CPT/HCPCS: 36415; 71045-TC; 74021-TC; 80048; 80053; 81003; 81015; 83735; 85025; 87086; 87186; 93005; 97116-GP; 97161-GP; 99283-25; G0378

== ENCOUNTER 2017-11-19 19:00 | Inpatient (IN) | payer OTHER, BC ==
--- NOTE | 2017-11-19 19:14 | PDOC ---
History of Present Illness - General History Source: Patient, Family Exam Limitations: Clinical Condition - History of Present Illness Initial Comments: 11/19/17 19:45 The patient is a 81 year old female, with a significant past medical history of CAD (s/p stent) and COPD, who presents to the emergency department with, 20 minutes of disorientation. As per patients daughter they were having dinner tonight when leaving the restaurant she stopped speaking. While driving to the ED her daughters report she began to speak incoherently. In the ED, the patient is speaking in disorganized sentences and is repeating the phrase, "everything is everything." The patient is getting frustrated at her inability to speak coherently. Earlier this week the patient was admitted for severe constipation. The patient saw her bulk receiver Dr. Lico Fuentes today for a routine visit. The patient does not have a history of TIAs. The patient is left handed. She denies recent fevers, chills, headache or dizziness. She denies recent nausea, vomit, diarrhea or constipation. She denies recent dysuria, frequency, urgency or hematuria. She denies recent chest pain or shortness of breath. Allergies: Codeine Social history: Former smoker. Denies EtOH use and recreational drug use. Primary Care Physician: Dr. Lucy Munoz <Marianne Alford - Last Filed: 11/19/17 21:20> <Lisbeth Vilchis - Last Filed: 11/20/17 04:03> - General Chief Complaint: CVA/TIA Stated Complaint: CAN'T SPEAK Time Seen by Provider: 11/19/17 19:13 Past History <Marianne Alford - Last Filed: 11/19/17 21:20> - Past Medical History Anemia: No Asthma: No Cancer: No Cardiac Disorders: Yes (CAD, CHF) CVA: No COPD: Yes CHF: No DVT: No Dementia: No Diabetes: No GI Disorders: Yes (GERD) Disorders: No HTN: Yes Hypercholesterolemia: Yes Liver Disease: No Seizures: No Thyroid Disease: No - Surgical History Abdominal Surgery: Yes Appendectomy: Yes Cardiac Surgery: Yes (Stent Placement 2011) Cholecystectomy: Yes Lung Surgery: No Neurologic Surgery: No Orthopedic Surgery: Yes (KYPHOPLASTY X 2 IN PAST) - Suicide/Smoking/Psychosocial Hx Smoking Status: Yes Smoking History: Former smoker Years of Tobacco Use: 20 Have you smoked in the past 12 months: No Number of Cigarettes Smoked Daily: 20 If you are a former smoker, when did you quit?: 21 YRS AGO Hx Alcohol Use: No Drug/Substance Use Hx: No Substance Use Type: None Hx Substance Use Treatment: No <DengLisbeth Bucio - Last Filed: 11/20/17 04:03> - Past Medical History Allergies/Adverse Reactions: Allergies Allergy/AdvReac Type Severity Reaction Status Date / Time codeine [Codeine] Allergy Severe RESPIRATORY Verified 09/16/17 08:48 DISTRESS Home Medications: Ambulatory Orders Atorvastatin Ca [Lipitor] 80 mg PO HS 01/19/13 Docusate Sodium [Colace -] 200 mg PO HS 01/19/13 Metoprolol Succinate [Toprol XL -] 50 mg PO DAILY 01/19/13 Omeprazole [Prilosec (RX)] 20 mg PO DAILY 01/19/13 Salmeterol/Fluticasone [Advair 250Mcg/50Mcg -] 1 inh IH BID 01/19/13 Aspirin Coated [Ecotrin -] 81 mg PO DAILY tablet.ec 04/27/16 Albuterol Sulfate [Proair Respiclick] 90 mcg IH DAILY 10/29/16 Umeclidinium [place] [Incruse Ellipta] 62.5 mcg IH DAILY 10/29/16 Valsartan/Hydrochlorothiazide [Valsartan-Hctz 80-12.5 mg Tab] 1 each PO DAILY Furosemide [Lasix] 20 mg PO ASDIR 09/16/17 Acetaminophen [Tylenol .Regular Strength -] 650 mg PO Q4H PRN tablet 09/20/17 Lactobacillus Acidophilus [Bacid -] 1 tab PO DAILY #30 tab 09/20/17 Sennosides [Senna -] 2 tab PO HS #60 tablet 09/20/17 Review of Systems - Review of Systems Able to Perform ROS?: Yes Comments:: 11/19/17 19:45 CONSTITUTIONAL: Absent: fever, chills, diaphoresis, generalized weakness, malaise, loss of appetite HEENT: Absent: rhinorrhea, nasal congestion, throat pain, throat swelling, difficulty swallowing, mouth swelling, ear pain, eye pain, visual Changes CARDIOVASCULAR: Absent: chest pain, syncope, palpitations, irregular heart rate, lightheadedness , peripheral edema RESPIRATORY: Absent: cough, shortness of breath, dyspnea with exertion, orthopnea, wheezing, stridor, hemoptysis GASTROINTESTINAL: Absent: abdominal pain, abdominal distension, nausea, vomiting, diarrhea, constipation, melena, hematochezia GENITOURINARY: Absent: dysuria, frequency, urgency, hesitancy, hematuria, flank pain, genital pain MUSCULOSKELETAL: Absent: myalgia, arthralgia, joint swelling SKIN: Absent: rash, itching, pallor HEMATOLOGIC/IMMUNOLOGIC: Absent: easy bleeding, easy bruising, lymphadenopathy, frequent infections ENDOCRINE: Absent: unexplained weight gain, unexplained weight loss, heat intolerance, cold intolerance NEUROLOGIC: Present: Impaired mental status. Disorientation. Impaired speech. Absent: headache, focal weakness or paresthesias, dizziness, unsteady gait, seizure, bladder or bowel incontinence PSYCHIATRIC: Absent: anxiety, depression, suicidal or homicidal ideation, hallucinations. <Marianne Alford - Last Filed: 11/19/17 21:20> *Physical Exam - Vital Signs Last Vital Signs Temp Pulse Resp BP Pulse Ox 98.1 F 77 18 143/61 97 11/19/17 19:22 11/19/17 19:22 11/19/17 19:22 11/19/17 19:22 11/19/17 19:22 - Physical Exam Comments: 11/19/17 19:45 GENERAL: The patient is awake and responsive. Repeating clear but, inappropriate words and phrases. HEAD: Normal with no signs of trauma. (+)EYES: +2 mm pupils equal, round and selectively reactive to light, extraocular movements intact, sclera anicteric, conjunctiva clear with no pallor. ENT: Ears normal, nares patent, oropharynx clear without exudates. Moist mucous membranes. NECK: Normal range of motion, supple without lymphadenopathy, JVD, or masses. LUNGS: Breath sounds equal, clear to auscultation bilaterally. No wheeze/ crackles. HEART: Regular rate and rhythm, normal S1 and S2 without murmur or rub. ABDOMEN: Soft/nontender/nondistended. BS wnl. No guarding or rebound. No palpable masses. No hepatosplenomegaly. EXTREMITIES: Normal range of motion, no edema. No clubbing or cyanosis. No cords, erythema, or tenderness. (+)NEUROLOGICAL: +[place] coma scale 12. Cranial nerves grossly intact without evidence of facial droop. Spontaneous eye opening. Verbal responses inappropriate, words are clear and understandable. Motor responses are localized to pain. The remainder of the neurological exam is untestable secondary to inability to respond to commands. PSYCH: Normal mood, normal affect. SKIN: Warm, Dry, normal turgor, no rashes or lesions noted. <Marianne Alford - Last Filed: 11/19/17 21:20> NIH Stroke Scale - Last Known Well Date/Time & Onset Date Last Known Well: 11/19/17 Time Last Known Well: 18:30 - Initial Evaluation Level of consciousness: Alert Facial paresis (Show teeth/raise eyebrows/close eyes tight): Normal symmetrical movement Motor Function: Left Arm: Normal Limb Ataxia: No ataxia Best language (Describe picture, name items, read sentences): Severe aphasia Dysarthria (read several words): Normal articulation <Lisbeth Vilchis - Last Filed: 11/20/17 04:03> Critical Care Time/MDM Note - Medical Decision Making Note: 7:57pm Call placed to Dr. Bain's answering service, neurology strategic communications manager, awaiting call back. 8:15pm Second call placed to Dr. Bain's answering service, case was discussed. 9:17pm Call placed to Dr. Shane Munoz answering service for ICU admission, awaiting call back. 9:19pm Call returned from Dr. Puente, strategic communications manager for Dr. Pruitt, case was discussed. <Marianne Alford - Last Filed: 11/19/17 21:20> Total Critical Care Time: 30 Critical Care Statement: The care of this patient involved high complexity decision making to prevent further life threatening deterioration of the patient 's condition and/or to evaluate & treat vital organ system(s) failure or risk of failure. - Medical Decision Making Note: 11/19/17 19:58 Documentation has been prepared under my direction and personally reviewed by me in its entirety. I attest that this documented accurately reflects all work, treatment, procedures and medical decision making performed by me. As noted above, this 81-year-old woman with a history of coronary artery disease and COPD but no previous neurologic issues presents with sudden onset of expressive and receptive aphasia which began approximately 15 minutes prior to arrival in the emergency room(about 6:45 PM). Episode witnessed by her 2 daughters as noted after they left the restaurant where they had just eaten dinner. Patient was otherwise asymptomatic during the day and no symptoms noted during dinner. Exam as noted Noncontrast head CT interpreted by : No evidence of acute bleed/mass Fibrinolytic exclusion criteria reviewed: No factors for exclusion present 11/19/17 21:[address] Bain at 8:15 PM: fibrinolytic therapy is appropriate. TPA (alteplase) begun at 8:35PM Patient continues to be aphasic with both expressive and receptive aphasia, although she is using more phrases than on presentation. No new neurologic deficits present. 11/19/17 21:[address] [facility]. Patient will be admitted to their service 11/19/17 21:20 While in case discussed with : Patient approved for admission to the ICU 11/19/17 21:40 Bright red blood per rectum noted. Stool was heme-negative prior to alteplase administration. On examination, origin of the bleeding appears to be external hemorrhoid. Direct pressure placed on the hemorrhoid and alteplase infusion stopped (46 mg total had been given). Surgicel plus 2 x 2 gauze placed on external hemorrhoid. 11/19/17 22:14 Patient about to be transported to ICU at [facility]. Patient is now oriented to person,place and circumstances prior to arriving in the ER(for example, remembers being in the diner) <Lisbeth Vilchis - Last Filed: 11/20/17 04:03> Discharge Disposition <Marianne Alford - Last Filed: 11/19/17 21:20> - Discharge Dispostion Last Admission D/C Date: 04/27/16 Admit: Yes <Lisbeth Vilchis - Last Filed: 11/20/17 04:03> - Diagnosis Cerebrovascular accident (CVA) Qualifiers: CVA mechanism: unspecified Qualified Code(s): I63.9 - Cerebral infarction, unspecified - Discharge Dispostion Condition at time of disposition: Guarded Attestations - Attestations 11/19/17 19:51 Documentation prepared by Marianne Alford, acting as medical social worker for Lisbeth Vilchis MD. <Marianne Alford - Last Filed: 11/19/17 21:20>
[2017-11-19] MEDS ORDERED: SODIUM CHLORIDE 1,000 ML IV SCH ×2 (19:15→22:15)
[2017-11-19 19:36] LABS: BASO % 0.4 % (0-2.0); EOS % 2.5 % (0-4.5); HEMATOCRIT 33.3 % (32.4-45.2); HEMOGLOBIN 11.1 GM/dl (10.7-15.3); LYMPH % 15.1 % (8-40); MCH 30.6 pg (25.7-33.7); MCHC 33.5 g/dl (32.0-36.0); MEAN CELL VOLUME 91.5 fl (80-96); MEAN PLT VOLUME 8.7 fl (7.5-11.1); PLATELET COUNT 251 K/MM3 (134-434); RBC 3.64 M/mm3 (3.60-5.2); RDW 13.5 % (11.6-15.6); WHITE BLOOD COUNT 11.6 K/mm3 (4.0-10.8)
[2017-11-19 19:49] LABS: INR 1.06 (0.82-1.09); PROTHROMBIN TIME (PATIENT) 11.8 SEC (10.2-13.0)
[2017-11-19 20:10] LABS: ALBUMIN 3.5 g/dl (3.5-5.0); ALK PHOS 93 U/L (32-92); ANION GAP 9 (8-16); BILIRUBIN,TOTAL 0.5 mg/dl (0.2-1.0); BLOOD UREA NITROGEN 18 mg/dl (7-18); CALCIUM 8.5 mg/dl (8.4-10.2); CHLORIDE 102 mmol/L (98-107); CO2 24 mmol/L (22-28); CREATININE 1.2 mg/dl (0.6-1.3); GLUCOSE,RANDOM 117 mg/dl (74-106); POTASSIUM 3.4 mmol/L (3.5-5.1); SGOT/AST 23 U/L (10-42); SGPT/ALT 15 U/L (10-40); SODIUM 135 mmol/L (136-145); TOT PROT 6.5 g/dl (6.4-8.3)
[2017-11-19] MEDS ORDERED: ALTEPLASE 100MG 100 MG IVPB ONE (20:23)
[2017-11-19] MEDS ORDERED: ALTEPLASE 50 MG VIAL IVPB ONE (21:10)
--- NOTE | 2017-11-19 22:41 | CONSULT ---
Consult Consult Specialty:: Pulm/CCM Reason for Consultation:: CVA - History of Present Illness Chief Complaint: AMS History of Present Illness: This is a 81 year old female former smoker with a history of CAD s/p stent x 1, HTN, COPD, GERD and bleeding painful hemorrhoids who was noted to have witnessed acute AMS w/ word finding difficulty at 19:15 pm. She was taken to the ED where she continued to have expressive and receptive aphasia. Her neuro exam was otherwise non focal. NCHCT was done w/o acute bleed. Neurology consulted and TPA recommended. TPA infusion was administered at 20:35 pm and stopped after 46mg 2/2 rectal bleeding most likely from hemorrhoids. Patient transferred to [facility] ICU for continued care and monitoring. Of note patient was recently admitted for constipation and hemorrhoid pain and has has been in her usual state of health since discharge. No history of previous CVA or TIAs. She was seen for routine follow up in cardiology clinic the day of admission. In the ICU patient awake and alert. AOX3. LOPEZ. able to name simple objects. No focal deficit noted. - History Source History Provided By: Patient, Family Member, Medical Record Limitations to Obtaining History: No Limitations - Past Medical History Cardio/Vascular: Yes: CAD (s/p stent), HTN Pulmonary: Yes: COPD Gastrointestinal: Yes: GERD - Past Surgical History Past Surgical History: Yes: Appendectomy, Cholecystectomy - Alcohol/Substance Use Hx Alcohol Use: No - Smoking History Smoking history: Former smoker Have you smoked in the past 12 months: No Aproximately how many cigarettes per day: 20 If you are a former smoker, when did you quit?: 21 YRS AGO - Social History History of Recent Travel: No Home Medications - Allergies Allergies/Adverse Reactions: Allergies Allergy/AdvReac Type Severity Reaction Status Date / Time codeine [Codeine] Allergy Severe RESPIRATORY Verified 09/16/17 08:48 DISTRESS - Home Medications Home Medications: Ambulatory Orders Atorvastatin Ca [Lipitor] 80 mg PO HS 01/19/13 Docusate Sodium [Colace -] 200 mg PO HS 01/19/13 Metoprolol Succinate [Toprol XL -] 50 mg PO DAILY 01/19/13 Omeprazole [Prilosec (RX)] 20 mg PO DAILY 01/19/13 Salmeterol/Fluticasone [Advair 250Mcg/50Mcg -] 1 inh IH BID 01/19/13 Aspirin Coated [Ecotrin -] 81 mg PO DAILY tablet.ec 04/27/16 Albuterol Sulfate [Proair Respiclick] 90 mcg IH DAILY 10/29/16 Umeclidinium [place] [Incruse Ellipta] 62.5 mcg IH DAILY 10/29/16 Valsartan/Hydrochlorothiazide [Valsartan-Hctz 80-12.5 mg Tab] 1 each PO DAILY Furosemide [Lasix] 20 mg PO ASDIR 09/16/17 Acetaminophen [Tylenol .Regular Strength -] 650 mg PO Q4H PRN tablet 09/20/17 Lactobacillus Acidophilus [Bacid -] 1 tab PO DAILY #30 tab 09/20/17 Sennosides [Senna -] 2 tab PO HS #60 tablet 09/20/17 Family Disease History - Family Disease History Family History: Unremarkable Review of Systems - Review of Systems Neurological: reports: Change in LOC, Change in Speech, Confusion, Other ( aphasia) Physical Exam Vital Signs: Vital Signs Temperature 98.1 F 11/19/17 19:22 Pulse Rate 83 11/19/17 22:16 Respiratory Rate 22 11/19/17 22:16 Blood Pressure 95/85 11/19/17 22:16 O2 Sat by Pulse Oximetry (%) 100 11/19/17 22:16 Current Medications Sodium Chloride (Normal Saline -) 1,000 mls @ 42 mls/hr IV ASDIR [facility] Last Admin: 11/19/17 19:55 Dose: 42 mls/hr Sodium Chloride (Normal Saline -) 1,000 mls @ 100 mls/hr IV ASDIR [facility] Last Admin: 11/19/17 22:05 Dose: 100 mls/hr Constitutional: Yes: Well Nourished, No Distress, Calm Eyes: Yes: Conjunctiva Clear, EOM Intact, PERRL HENT: Yes: Normocephalic Cardiovascular: Yes: Regular Rate and Rhythm, S1, S2 Respiratory: Yes: CTA Bilaterally Gastrointestinal: Yes: WNL, Normal Bowel Sounds, Soft ...Rectal Exam: Yes: Hemorrhoids/External Extremities: Yes: WNL Edema: No Peripheral Pulses WNL: No Integumentary: Yes: WNL Neurological: Yes: Alert, Oriented, Cran Nerves II-XII Intact ...Motor Strength: WNL Psychiatric: Yes: Alert, Oriented Labs: CBC, BMP 11/19/17 19:15 11/19/17 19:15 Imaging - Results Cat Scan: Report Reviewed, Image Reviewed Problem List - Problems (1) Cerebrovascular accident (CVA) Code(s): I63.9 - CEREBRAL INFARCTION, UNSPECIFIED Qualifiers: CVA mechanism: unspecified Qualified Code(s): I63.9 - Cerebral infarction, unspecified (2) Atherosclerotic heart disease Code(s): I25.10 - ATHSCL HEART DISEASE OF [place] CORONARY ARTERY W/O ANG PCTRS (3) CHF (congestive heart failure) Code(s): I50.9 - HEART FAILURE, UNSPECIFIED (4) COPD (chronic obstructive pulmonary disease) with acute bronchitis Code(s): J44.0 - CHRONIC OBSTRUCTIVE PULMON DISEASE W ACUTE LOWER RESP INFCT (5) GERD (gastroesophageal reflux disease) Code(s): K21.9 - GASTRO-ESOPHAGEAL REFLUX DISEASE WITHOUT ESOPHAGITIS (6) HTN (hypertension) Code(s): I10 - ESSENTIAL (PRIMARY) HYPERTENSION Qualifiers: Hypertension type: essential hypertension Qualified Code(s): I10 - Essential (primary) hypertension (7) Hyperlipidemia Code(s): E78.5 - HYPERLIPIDEMIA, UNSPECIFIED Qualifiers: Hyperlipidemia type: pure hypercholesterolemia Qualified Code(s): E78.00 - Pure hypercholesterolemia, unspecified; E78.0 - Pure hypercholesterolemia Assessment/Plan a/p: This is a 81 year old female former smoker with a history of CAD s/p stent x 1, HTN, COPD, GERD and bleeding painful hemorrhoids who was noted to have witnessed acute AMS w/ word finding difficulty c/w acute embolic CVA now s/p TPA which was stopped early 2/2 rectal bleeding from hemorrhoids. Mental status cont to improve. -No IV heparin, warfarin, or antiplatelet drugs during the infusion or for 24 hours post infusion. -Avoid nasogastric tubes, blood draws, or invasive lines/procedures for 24 hours post infusion, if possible. -No intramuscular injections for 24 hrs -Head CT or MRI at 24 hours post infusion. -neuro checks based on patient condition & vital signs Q 30 min. for 6 hrs., then Q 1 hr. for 16 hrs., and then per ICU standard of care -Goal systolic blood pressure <180 mmHg, diastolic pressure <105 --if Systolic 180-230 OR Diastolic 105-120: hydralazine 10 mg IV given over 1-2 minutes; may repeat 10-20 minutes then Nicardipine 5 mg/hour IV infusion -Keep head of bed 30 degrees -Dysphagia evaluation in AM -Cardiology to follow -will likely need holter monitor upon discharge -carotid dopplers -ASA 24hrs after TPA -cont home satin -send lipids, HbA1c, TSH, homocysteine level, ESR/CRP -O2 for sat >89% -Albuterol prn -PPI given h/o GERD -bowel regimen -monitor for continued bleeding from hemorrhoids -active type and screen -normal transfusion thresholds [place] ACNP Pulm/CCM CCT: 45m
[2017-11-19] MEDS ORDERED: ALBUTEROL SO4 0.083% IH SOL 2.5 MG/3 ML VIAL.NEB. NEB PRN (23:32)
[2017-11-19 23:43] VITALS: BMI 22.6
[2017-11-20] MEDS ORDERED: SODIUM CHLORIDE 1,000 ML IV SCH ×2 (00:24→08:45)
--- NOTE | 2017-11-20 01:42 | HP ---
CHIEF COMPLAINT: Aphasia, AMS PCP: Alexander HISTORY OF PRESENT ILLNESS: This is an 81 year old female with a significant past medical history of CAD, HTN, HLD presented to the ED with sudden onset of disorientation, dysarthria and expressive aphasia. As per the ED noted, her daughters' report pt was in her usual state of health today and then suddenly stopped speaking as they were leaving a restaurant after dinner. In the car on the way to the hospital, pt began speaking incoherently. In the ED, the patient was speaking in disorganized sentences and is repeating the phrase, "everything is everything," and appeared to become agitated by her inability to speak coherently. CT scan in ED was negative for acute hemorrhage. TPA was administered but was stopped after pt received 46mg due to bright red blood per rectum. As per ED MD noted, source of bleeding was noted to be a hemorrhoid which was packed with surgicel. Upon exam in ICU pt able to make needs known. Reports pain across lower back. NO further rectal bleeding. ER course was notable for: (1) CT head with no acute findings (2) WBC 11.6 (3) K 3.4 Recent Travel: pt denies PAST MEDICAL HISTORY: CAD, CHF-diastolic dysfunction, HTN, HLD, mild-mod carotid stenosis, COPD, GERD PAST SURGICAL HISTORY: Cholecystectomy appendectomy cardiac stent - SHAMIR RCA 10/27/2010 kyphoplasty x2 Social History: Smoking: previous Alcohol: pt denies Drugs: pt denies Allergies codeine [Codeine] Allergy (Severe, Verified 09/16/17 08:48) RESPIRATORY DISTRESS HOME MEDICATIONS: 3 Medication Instructions Recorded Atorvastatin Ca [Lipitor] 80 mg PO HS 01/19/13 Docusate Sodium [Colace -] 200 mg PO HS 01/19/13 Metoprolol Succinate [Toprol XL -] 50 mg PO DAILY 01/19/13 Omeprazole [Prilosec (RX)] 20 mg PO DAILY 01/19/13 Salmeterol/Fluticasone [Advair 1 inh IH BID 01/19/13 250Mcg/50Mcg -] Aspirin Coated [Ecotrin -] 81 mg PO DAILY tablet.ec 04/27/16 Albuterol Sulfate [Proair 90 mcg IH DAILY 10/29/16 Respiclick] Umeclidinium [place] [Incruse 62.5 mcg IH DAILY 10/29/16 Ellipta] Valsartan/Hydrochlorothiazide 1 each PO DAILY 10/29/16 [Valsartan-Hctz 80-12.5 mg Tab] Furosemide [Lasix] 20 mg PO ASDIR 09/16/17 Acetaminophen [Tylenol .Regular 650 mg PO Q4H PRN tablet 09/20/17 Strength -] Lactobacillus Acidophilus [Bacid -] 1 tab PO DAILY #30 tab 09/20/17 Sennosides [Senna -] 2 tab PO HS #60 tablet 09/20/17 REVIEW OF SYSTEMS CONSTITUTIONAL: Absent: fever, chills, diaphoresis, generalized weakness, malaise, loss of appetite, weight change HEENT: Absent: rhinorrhea, nasal congestion, throat pain, throat swelling, difficulty swallowing, mouth swelling, ear pain, eye pain, visual changes CARDIOVASCULAR: Absent: chest pain, syncope, palpitations, irregular heart rate, lightheadedness , peripheral edema RESPIRATORY: Absent: cough, shortness of breath, dyspnea with exertion, orthopnea, wheezing, stridor, hemoptysis GASTROINTESTINAL: Absent: abdominal pain, abdominal distension, nausea, vomiting, diarrhea, constipation, melena, hematochezia GENITOURINARY: Absent: dysuria, frequency, urgency, hesitancy, hematuria, flank pain, genital pain MUSCULOSKELETAL: Absent: myalgia, arthralgia, joint swelling, back pain, neck pain SKIN: Absent: rash, itching, pallor HEMATOLOGIC/IMMUNOLOGIC: Absent: easy bleeding, easy bruising, lymphadenopathy, frequent infections ENDOCRINE: Absent: unexplained weight gain, unexplained weight loss, heat intolerance, cold intolerance NEUROLOGIC: Present: dysarthria, aphasia Absent: headache, focal weakness or paresthesias, dizziness, unsteady gait, seizure, mental status changes, bladder or bowel incontinence PSYCHIATRIC: Absent: anxiety, depression, suicidal or homicidal ideation, hallucinations. PHYSICAL EXAMINATION Vital Signs - 24 hr 3 11/19/17 11/19/17 11/19/17 19:22 19:47 22:16 Temperature 98.1 F Pulse Rate 77 Pulse Rate [ 66 83 Left] Respiratory 18 20 22 Rate Blood Pressure 143/61 Blood Pressure 101/81 95/85 [Right] O2 Sat by Pulse 97 100 100 Oximetry (%) 3 11/19/17 11/20/17 23:26 00:15 Temperature 97.6 F Pulse Rate 71 66 Pulse Rate [ Left] Respiratory 18 20 Rate Blood Pressure 131/69 143/73 Blood Pressure [Right] O2 Sat by Pulse 100 Oximetry (%) GENERAL: Awake, alert, and fully oriented, in no acute distress. HEAD: Normal with no signs of trauma. EYES: Pupils equal, round and reactive to light, extraocular movements intact, sclera anicteric, conjunctiva clear. No lid lag. EARS, NOSE, THROAT: Ears normal, nares patent, oropharynx clear without exudates. Moist mucous membranes. NECK: Normal range of motion, supple without lymphadenopathy, JVD, or masses. LUNGS: Breath sounds equal, clear to auscultation bilaterally. No wheezes, and no crackles. No accessory muscle use. HEART: Regular rate and rhythm, normal S1 and S2 without murmur, rub or gallop. ABDOMEN: Soft, nontender, not distended, normoactive bowel sounds, no guarding, no rebound, no masses. No hepatomegaly or splenomegaly. MUSCULOSKELETAL: Normal range of motion at all joints. No bony deformities or tenderness. No CVA tenderness. UPPER EXTREMITIES: 2+ pulses, warm, well-perfused. No cyanosis. No clubbing. No peripheral edema. LOWER EXTREMITIES: 2+ pulses, warm, well-perfused. No calf tenderness. No peripheral edema. NEUROLOGICAL: Cranial nerves II-XII intact. Normal speech. Gait not observed. mild word finding issues noted, speech is clear, possible visual field loss right side both eyes. No facial droop, tongue midline, muscle strength equal all 4 limbs, no drift PSYCHIATRIC: Cooperative. Good eye contact. Appropriate mood and affect. SKIN: Warm, dry, normal turgor, no rashes or lesions noted, normal capillary refill. Laboratory Results - last 24 hr 3 11/19/17 11/19/17 11/19/17 19:15 19:15 19:15 19:22 WBC 11.6 H D RBC 3.64 Hgb 11.1 Hct 33.3 MCV 91.5 MCH 30.6 MCHC 33.5 RDW 13.5 Plt Count 251 MPV 8.7 Neutrophils % 74.0 Lymphocytes % 15.1 Monocytes % 8.0 Eosinophils % 2.5 Basophils % 0.4 PT with INR 11.8 INR 1.06 Sodium 135 L Potassium 3.4 L D Chloride 102 Carbon Dioxide 24 Anion Gap 9 BUN 18 Creatinine 1.2 Creat Clearance w eGFR 43.12 Random Glucose 117 H D Calcium 8.5 Total Bilirubin 0.5 AST 23 ALT 15 Alkaline Phosphatase 93 H Creatine Kinase 53 Troponin I < 0.03 Total Protein 6.5 Albumin 3.5 Stool Occult Blood Negative Blood Type A POSITIVE Antibody Screen Negative Radiology Reports Chest xray portable Impression: No evidence of acute infiltrate, pulmonary vascular congestion or pleural effusion. Reported By: Erika Mcleod DO 11/19/172105 CT head noncontrast Impression: No evidence of acute intracranial hemorrhage or acute transcortical infarction. No mass effects or hydrocephalus. MRI is more sensitive in detecting acute infarction. Generalized, age-related volume loss and moderate microvascular ischemic changes as above, similar to 03/06/[address] Reported By: Erika Mcleod DO 11/19/171948 ASSESSMENT/PLAN: 81yF with PMH CAD, CHF-diastolic dysfunction, HTN, HLD, mild-mod carotid stenosis, COPD, GERD presented to the ED with sudden onset aphasia and dysarthria. Acute CVA - s/p TPA administration 46mg out of total dose weight based dose 55mg - neurology consult - MRI brain ordered - bedrest - Passed bedside swallow eval, ok to have liquids and meds - ST consult - PT consult hypokalemia - pt did not tolerated IV potassium, changed to po - repeat bmp in am HTN/CHF - cont home toprol, valsartan/HCTZ, lasix HLD - cont home lipitor 80mg CAD - cont home ASA, Lipitor, toprol COPD - home advair changed to formulary symbicort - home incruse changed to formulary spiriva - albuterol nebs prn GERD - cont home prilosec constipation - cont home colace and senna DVT PPX - start SC heparin when cleared by neuro FEN - NS @ 42cc/hr for now, reassess in am - bmp in am, K repleted - clear liquid diet until ST eval Dispo: pt currently requires ICU level care. Visit type - Emergency Visit Emergency Visit: Yes ED Registration Date: 11/19/17 Care time: The patient presented to the Emergency Department on the above date and was hospitalized for further evaluation of their emergent condition. - New Patient This patient is new to me today: Yes Date on this admission: 11/20/17 - Critical Care Critical Care patient: Yes Total Critical Care Time (in minutes): 40 Critical Care Statement: The care of this patient involved high complexity decision making to prevent further life threatening deterioration of the patient 's condition and/or to evaluate & treat vital organ system(s) failure or risk of failure. Hospitalist Screening - Colonoscopy Questionnaire Colonoscopy Questionnaire: Colonoscopy Questionnaire - Patient: 50 - 75 years old and never had a screening colonoscopy: No History of colon or rectal polyps, or CA: No History of IBD, Crohn's disease or UC: No History of abdominal radiation therapy as a child: No - Relative: 1 with colon or rectal CA, or polyps at age 60 or younger: No Colon or rectal CA diagnosed at age 45 or younger: No Multiple relatives with colon or rectal CA: No - Outcome: Screening Result: Negative Screen
[2017-11-20] MEDS ORDERED: ACETAMINOPHEN 325 MG TABLET (FP) PO ONE (02:59)
[2017-11-20] MEDS ORDERED: ACETAMINOPHEN 325 MG TABLET (FP) ONE (03:00)
[2017-11-20] MEDS: KCL 10 MEQ IVPB 10 MEQ/100 ML INFUS.BAG IVPB SCH ×2 (03:04→03:12)
[2017-11-20] MEDS ORDERED: POTASSIUM CHLORIDE ORAL LIQUID 20 MEQ/15 ML PO ONE (03:12)
[2017-11-20 07:05] LABS: BASO % 0.6 % (0-2.0); HEMATOCRIT 27.7 % (32.4-45.2); HEMOGLOBIN 9.5 GM/dL (10.7-15.3); LYMPH % 17.3 % (8-40); MCH 31.8 pg (25.7-33.7); MCHC 34.3 g/dl (32.0-36.0); MEAN CELL VOLUME 92.6 fl (80-96); MEAN PLT VOLUME 9.4 fl (7.5-11.1); MONO % 11.9 % (3.8-10.2); NEUT % 66.2 % (42.8-82.8); PLATELET COUNT 196 K/MM3 (134-434); RBC 2.99 M/mm3 (3.60-5.2); RDW 14.2 % (11.6-15.6); WHITE BLOOD COUNT 8.6 K/mm3 (4.0-10.0)
--- NOTE | 2017-11-20 07:05 | PN ---
Physical Exam: SUBJECTIVE: Briefly, 81yo F with history of CAD s/p RCA stent on 10/2010, HTN, HLD, diastolic CHF, mild-moderate carotid stenosis, and COPD who presented to the ED after sudden onset of dysarthria, expressive aphasia, and disorientation after eating at a restaurant with her children. Pt was immediately brought to the ED where she met criteria for TPA administration. TPA was eventually held at 46mg however due to BRBPR noted to be from hemorrhoids. Since then pt has regained her function to talk appropriately and no disorientation at this time. She has not had any other blood from her rectum and has not had any bloody bowel movements since then. Pt's only complaint at this time is back pain, however she attributes this to the hospital bed and reports the pain getting better. Pt denies any headaches, SOB, CP/discomfort, palpitations, abdominal pain, overt bleeding, visual changes, residual weakness , and changes in sensorium. OBJECTIVE: Vital Signs Period Temp Pulse Resp BP Sys/Oh Pulse Ox Last 24 Hr 97.2 F-98.5 F 58-83 18-23 95-143/47-85 97-100 GENERAL: The patient is awake, alert, and fully oriented, in no acute distress. HEENT: NC/AT, ALBERTO, EOMI, sclera anicteric and without injections, moist mucosa , no bleeding in the posterior oropharynx NECK: No JVD, Slight L carotid bruit (no bruit on R) LUNGS: CTA bilaterally, no wheezes, no crackles, no accessory muscle use. HEART: RRR, S1, S2 without murmur, rub or gallop. ABDOMEN: Soft, nontender, nondistended, normoactive bowel sounds, no guarding, no hepatomegaly. EXTREMITIES: 2+ DP pulses, warm, well-perfused, no edema. NEUROLOGICAL: Cranial nerves II through XII grossly intact. Facial symmetry. Strength 5/5 with hand pet stylist, arm flexion, extension, hand abduction, plantar/ dorsal flexion, hip flexion/extension. No deficits with [id number]. No dysdiadochokinesia. Normal speech without any aphasic deficits, gait not observed. PSYCH: Normal mood, normal affect. SKIN: Warm, dry, no rashes or lesions noted Laboratory Results - last 24 hr 11/19/17 11/19/17 11/19/17 19:15 19:15 19:15 WBC 11.6 H D RBC 3.64 Hgb 11.1 Hct 33.3 MCV 91.5 MCH 30.6 MCHC 33.5 RDW 13.5 Plt Count 251 MPV 8.7 Neutrophils % 74.0 Lymphocytes % 15.1 Monocytes % 8.0 Eosinophils % 2.5 Basophils % 0.4 PT with INR 11.8 INR 1.06 Sodium 135 L Potassium 3.4 L D Chloride 102 Carbon Dioxide 24 Anion Gap 9 BUN 18 Creatinine 1.2 Creat Clearance w eGFR 43.12 Random Glucose 117 H D Calcium 8.5 Total Bilirubin 0.5 AST 23 ALT 15 Alkaline Phosphatase 93 H Creatine Kinase Troponin I Total Protein 6.5 Albumin 3.5 Stool Occult Blood Blood Type Antibody Screen 11/19/17 11/19/17 11/19/17 19:15 19:15 19:22 WBC RBC Hgb Hct MCV MCH MCHC RDW Plt Count MPV Neutrophils % Lymphocytes % Monocytes % Eosinophils % Basophils % PT with INR INR Sodium Potassium Chloride Carbon Dioxide Anion Gap BUN Creatinine Creat Clearance w eGFR Random Glucose Calcium Total Bilirubin AST ALT Alkaline Phosphatase Creatine Kinase 53 Troponin I < 0.03 Total Protein Albumin Stool Occult Blood Blood Type A POSITIVE Antibody Screen Negative 11/19/17 19:22 WBC RBC Hgb Hct MCV MCH MCHC RDW Plt Count MPV Neutrophils % Lymphocytes % Monocytes % Eosinophils % Basophils % PT with INR INR Sodium Potassium Chloride Carbon Dioxide Anion Gap BUN Creatinine Creat Clearance w eGFR Random Glucose Calcium Total Bilirubin AST ALT Alkaline Phosphatase Creatine Kinase Troponin I Total Protein Albumin Stool Occult Blood Negative Blood Type Antibody Screen Active Medications Generic Name Dose Route Start Last Admin Trade Name Freq PRN Reason Stop Dose Admin Albuterol Sulfate 1 amp 11/19/17 23:32 Ventolin 0.083% Nebulizer Soln - NEB Q6H PRN SHORT OF BREATH/WHEEZING Atorvastatin Calcium 80 mg 11/20/17 22:00 Lipitor - PO HS YESSENIA Budesonide/Formoterol Fumarate 2 puff 11/20/17 10:00 Symbicort 80/4.5mcg - IH BID YESSENIA Chlorhexidine Gluconate 1 applic 11/20/17 22:00 Hibiclens For Decolonization - TP HS YESSENIA Docusate Sodium 200 mg 11/20/17 22:00 Colace - PO HS YESSENIA Hydrochlorothiazide 12.5 mg 11/20/17 10:00 Hctz - PO DAILY YESSENIA Sodium Chloride 1,000 mls @ 42 mls/hr 11/20/17 00:24 11/19/17 23:40 Normal Saline - IV 42 mls/hr ASDIR YESSENIA Administration Lactobacillus Acidophilus 1 tab 11/20/17 10:00 Bacid - PO DAILY YESSENIA Metoprolol Succinate 50 mg 11/20/17 10:00 Toprol Xl - PO DAILY YESSENIA Mupirocin 1 applic 11/20/17 10:00 Bactroban Ointment (For Decolonization) - NS 11/25/17 09:59 BID YESSENIA Pantoprazole Sodium 40 mg 11/20/17 10:00 Protonix Iv IVPUSH DAILY YESSENIA Pantoprazole Sodium 20 mg 11/20/17 10:00 Protonix - PO DAILY YESSENIA Senna 1 tab 11/20/17 10:00 Senna - PO BID YESSENIA Senna 2 tab 11/20/17 22:00 Senna - PO HS YESSENIA Valsartan 80 mg 11/20/17 10:00 Diovan - PO DAILY YESSENIA ASSESSMENT/PLAN: Neuro: CVA --Pt received TPA that was stopped at 46mg due to BRBPR (no bleeding at this time) --Maintain BP <140/60 at this point --Original Head CT without hemorrhage --Will order repeat CT Head this morning --MRI/MRA brain ordered --Neuro on board --Carotid dopplers ordered --Echocardiogram ordered --Continue Lipitor 80mg HS PO --Will recommend ASA 81mg +/- plavix upon discharge; will discuss with neurology --Possible holter monitoring for PAF on outpatient basis Respiratory: Not in respiratory distress Cardiovascular Hypertension history --Continue Diovan 80mg qDaily --Continue HCTZ 12.5mg qDaily --Continue Toprol XL 50mg PO qDaily Renal: No failure present FEN: Fluids: NS@50cc/hr; discontinue after PO tolerance assessed Electrolyte abnormalities: None currently Nutrition: previous bedside speech and swallow passed; will reassess again and advance as tolerated PPX: DVT - SCDs to both legs GI - not indicated Deconditioning - PT eval s/p CVA Dispo: Hold for 24hours after TPA administration (11/19) Case discussed with Dr. Edmond Castañeda, DO - IM PGY-1 Visit type - Emergency Visit Emergency Visit: No - New Patient This patient is new to me today: No - Critical Care Critical Care patient: Yes Total Critical Care Time (in minutes): 35 Critical Care Statement: The care of this patient involved high complexity decision making to prevent further life threatening deterioration of the patient 's condition and/or to evaluate & treat vital organ system(s) failure or risk of failure.
--- NOTE | 2017-11-20 07:18 | PN ---
Progress Note (short form) - Note Progress Note: Chief Complaint: Events noted, notes reviewed, sudden onset of slurred speech and receptive aphasia consistent with CVA post thrombolytic therapy administration, denies any focal neurologic deficit, denies any chest pain or dyspnera, complaining of back discomfort History of Present Illness: Seen and examined in the ICU. Full consult dictated - Current Medication List Current Medications Albuterol Sulfate (Ventolin 0.083% Nebulizer Soln -) 1 amp NEB Q6H PRN PRN Reason: SHORT OF BREATH/WHEEZING Atorvastatin Calcium (Lipitor -) 80 mg PO HS YESSENIA Budesonide/Formoterol Fumarate (Symbicort 80/4.5mcg -) 2 puff IH BID YESSENIA Chlorhexidine Gluconate (Hibiclens For Decolonization -) 1 applic TP HS YESSENIA Docusate Sodium (Colace -) 200 mg PO HS YESSENIA Hydrochlorothiazide (Hctz -) 12.5 mg PO DAILY [facility] Sodium Chloride (Normal Saline -) 1,000 mls @ 42 mls/hr IV ASDIR [facility] Last Admin: 11/19/17 23:40 Dose: 42 mls/hr Lactobacillus Acidophilus (Bacid -) 1 tab PO DAILY [facility] Metoprolol Succinate (Toprol Xl -) 50 mg PO DAILY [facility] Mupirocin (Bactroban Ointment (For Decolonization) -) 1 applic NS BID [facility] Stop: 11/25/17 09:59 Pantoprazole Sodium (Protonix Iv) 40 mg IVPUSH DAILY [facility] Pantoprazole Sodium (Protonix -) 20 mg PO DAILY [facility] Senna (Senna -) 1 tab PO BID [facility] Senna (Senna -) 2 tab PO HS [facility] Valsartan (Diovan -) 80 mg PO DAILY [facility] - Review of Systems Constitutional: denies: Fever or Chills Cardiovascular: As noted above Respiratory: denies: Cough or Sputum Production Gastrointestinal: denies: Nausea, Vomiting, Diarrhea or Abdominal Pain but reports Constipation and Rectal Bleeding Musculoskeletal: Back Pian Neurological: denies: Headache - Objective Vital Signs: Last Vital Signs Temp Pulse Resp BP Pulse Ox 97.2 F L 58 L 19 143/47 100 11/20/17 06:00 11/20/17 06:00 11/20/17 06:00 11/20/17 06:00 11/19/17 23:26 Intake & Output 11/17/17 11/18/17 11/19/17 11/20/17 23:59 23:59 23:59 23:59 Intake Total 344 Output Total 200 Balance 144 Weight 135 lb 12.876 oz Constitutional: No Distress, Calm, Thin Neck: Supple Negative JVD No Bruit Cardiovascular: S1 S2 Regular Rate and Rhythm Respiratory: Diminished at the Bases Gastrointestinal: Soft Benign Normal Bowel Sounds Ext: No Edema Labs: Blood test from this AM pending Assessment/Plan ASSESSMENT: 1. Acute CVA post thrombolytic therapy/TPA administration with no residual deficit 2. CAD post PCI (stent), angina pectoris stable 3. Diastolic dysfunction with chronic class 0-I NYHA classification LV failure, compensated/euvolemic 4. HTN 5. Hyperlipidemia 6. Carotid stenosis, mild in severity 7. COPD 8. 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 History of vertebral body fracture post kypho-plasty 10. Recent thrombosed external hemorrhoids post intervention PLAN: 1. Continue Toprol XL 2. Continue Diovan 3. Continue HCTZ with caution 4. Continue Lipitor 5. ASA +/- Plavix vs. Aggrenox as per neurology 6. Carotid Doppler study 7. Echocardiography to evaluate LV size and function and possible MAJO pending results of above 8. Monitor for arrhythmia and would recommend extended outpatient monitor to exclude PAF/paroxysmal atrial fibrillation Lico Fuentes MD
[2017-11-20 07:21] LABS: ALBUMIN 2.9 g/dl (3.4-5.0); CHLORIDE 107 mmol/L (98-107); POTASSIUM 4.1 mmol/L (3.5-5.1); SODIUM 142 mmol/L (136-145)
[2017-11-20 07:29] LABS: ALK PHOS 87 U/L (45-117); ANION GAP 10 (8-16); BILIRUBIN,TOTAL 0.4 mg/dL (0.2-1.0); BLOOD UREA NITROGEN 20 mg/dL (7-18); CALCIUM 7.9 mg/dL (8.5-10.1); CO2 25 mmol/L (21-32); CREATININE 0.9 mg/dL (0.55-1.02); GLUCOSE,RANDOM 92 mg/dL (74-106); INR 1.02 (0.82-1.09); PROTHROMBIN TIME (PATIENT) 11.5 SEC (9.98-11.88); SGOT/AST 17 U/L (15-37); SGPT/ALT 15 U/L (12-78); TOT PROT 5.6 g/dl (6.4-8.2)
--- NOTE | 2017-11-20 09:02 | CONS ---
DATE OF CONSULTATION: 11/20/2017 REQUESTING PHYSICIAN: Lucy Munoz MD CHIEF COMPLAINT: Altered mental status, slurred speech, acute stroke post thrombolytic therapy, cardiovascular evaluation. Patient well known to our service, an 81-year-old female with known history of coronary artery disease post percutaneous coronary intervention, stenting; angina pectoris; diastolic left ventricular dysfunction with chronic class 0-1 [place] Heart Association classification left ventricular failure; hypertensive cardiovascular disease; hypercholesterolemia; carotid atherosclerosis, mild in severity; advance chronic obstructive pulmonary disease; gastroesophageal reflux disease, who was recently hospitalized with thrombosed external hemorrhoids at [facility], who presented to [facility] after she was noted by her family to have altered mental status with slurred speech and receptive aphasia. Upon evaluation in the emergency room, it was determined that the above-noted presentation is consistent with acute cerebrovascular event. CT scan of the head did not reveal any evidence of a bleed, and subsequently, thrombolytic therapy was initiated but was prematurely terminated due to rectal bleed. Patient currently is seen in the intensive care unit, awake and alert and oriented to time and place. She does not have any recollection of last night's events. Currently, she denies any focal neurologic deficits. Patient denies any chest discomfort. Patient denies any dyspnea, orthopnea, paroxysmal nocturnal dyspnea, or peripheral edema. Patient denies any palpitations, dizziness, lightheadedness, or syncope. PAST MEDICAL HISTORY: Coronary artery disease post percutaneous coronary intervention, stenting; angina pectoris; diastolic left ventricular dysfunction with chronic class 0-1 [place] Heart Association classification left ventricular failure; hypertensive cardiovascular disease; hypercholesterolemia; carotid atherosclerosis; chronic obstructive pulmonary disease; gastroesophageal reflux disease; recent hospitalization for thrombosed external hemorrhoid post intervention; degenerative lumbosacral disk disease with chronic low back pain syndrome; vertebral body compression fracture post kyphoplasty; and degenerative joint disease. SOCIAL HISTORY: Prior history of smoking. FAMILY HISTORY: Positive coronary artery disease. ALLERGIES: intolerance to CODEINE. MEDICAL THERAPY AT HOME: Included Lipitor 80 mg once a day, Toprol-XL 50 mg once a day, Prilosec 20 mg once a day, Ecotrin 81 mg once a day, Diovan/HCT 80/12.5 mg once a day, Lasix 20 mg once a day, Advair Diskus and Incruse Ellipta inhaler as prescribed. REVIEW OF SYSTEMS: Head and Neck: Denies headache, photophobia, blurring of vision. Respiratory: No cough or sputum production. Cardiovascular: As noted above. Gastrointestinal: Denies nausea, vomiting, diarrhea, but reports intermittent rectal bleed related to hemorrhoidal bleed. Genitourinary: No frequency, urgency, hesitancy. Musculoskeletal: Degenerative lumbosacral disk disease with low back pain syndrome and degenerative joint disease. PHYSICAL EXAMINATION: Vital Signs: Blood pressure is 143/47 mmHg, pulse rate of 58 beats per minute. Head and Neck: Pupils equal and reactive to light and accommodation. Extraocular muscles are intact. Anicteric sclerae. Negative JVD. No bruit appreciated. Chest: Diminished breath sounds at the bases bilaterally. Cardiovascular: S1 and S2 regular. No murmurs appreciated. Abdomen: Soft, benign. Normoactive bowel sounds. Extremities: Negative edema. Distal pulses 1+. No calf tenderness. Electrocardiogram: No EKG available in the chart. Monitor reveals sinus bradycardia. CBC revealed white cell count 8.6, hemoglobin 9.5, platelet count is 196. INR 1.06. Basic metabolic profile: Sodium 142, potassium 4.1, BUN 20, creatinine 0.9, glucose 92 with normal liver profile. CT scan of the head report was noted. ASSESSMENT: 1. Acute cerebrovascular event post thrombolytic therapy, tissue plasminogen activator, with no residual deficit. 2. Coronary artery disease post percutaneous coronary intervention and stenting; angina pectoris, stable. 3. Diastolic left ventricular dysfunction with chronic class 0-1 [place] Heart Association classification left ventricular failure, compensated/euvolemic. 4. Hypertensive cardiovascular disease. 5. Hypercholesterolemia. 6. Carotid stenosis, mild in severity. 7. History of chronic obstructive pulmonary disease. 8. History of degenerative lumbosacral disk disease with low back pain syndrome and degenerative joint disease. 9. History of vertebral body compression fracture post kyphoplasty. 10. Recent thrombosed external hemorrhoid post intervention. RECOMMENDATION: 1. Continuation of Toprol-XL therapy. 2. Continuation of Diovan therapy. 3. Continuation of hydrochlorothiazide therapy with caution and close monitoring of renal function. 4. Continuation of high-dose Lipitor therapy. 5. Aspirin plus/minus Plavix versus Aggrenox therapy administration as per Neurology. 6. Carotid Doppler study for evaluation of disease progression. 7. Echocardiography for evaluation of left ventricular size and function and possible transesophageal echocardiography. 8. Monitor for arrhythmia and would recommend extended outpatient monitor to exclude paroxysmal atrial fibrillation as the culprit for the above-noted presentation. Thank you for the kind referral. ZACH MAKI M.D. [id number]
[2017-11-20] MEDS ORDERED: FLUTICASONE/SALMETEROL 100 MCG/50 MCG DISKUS IH SCH (10:00)
[2017-11-20] MEDS ORDERED: PATIENT'S OWN MEDICATION (NON-FORMULARY) (Valsartan/Hydrochlorothiazide [Valsartan-Hctz 80 PO SCH (10:00)
--- NOTE | 2017-11-20 10:40 | PN ---
Progress Note, Physician Chief Complaint: Pt examined Spoke with ICU staff events noted s/p TPA pt speaking well NPO but passed bedside swallow evaluation - Current Medication List Current Medications: Active Medications Albuterol Sulfate (Ventolin 0.083% Nebulizer Soln -) 1 amp NEB Q6H PRN PRN Reason: SHORT OF BREATH/WHEEZING Atorvastatin Calcium (Lipitor -) 80 mg PO HS YESSENIA Budesonide/Formoterol Fumarate (Symbicort 80/4.5mcg -) 2 puff IH BID YESSENIA Chlorhexidine Gluconate (Hibiclens For Decolonization -) 1 applic TP HS YESSENIA Docusate Sodium (Colace -) 200 mg PO HS YESS[facility] Hydrochlorothiazide (Hctz -) 12.5 mg PO DAILY YESSENIA Sodium Chloride (Normal Saline -) 1,000 mls @ 50 mls/hr IV ASDIR YESSENIA Stop: 11/21/17 08:44 Lactobacillus Acidophilus (Bacid -) 1 tab PO DAILY YESSENIA Metoprolol Succinate (Toprol Xl -) 50 mg PO DAILY YESS[facility] Mupirocin (Bactroban Ointment (For Decolonization) -) 1 applic NS BID [facility] Stop: 11/25/17 09:59 Pantoprazole Sodium (Protonix Iv) 40 mg IVPUSH DAILY YESSENIA Pantoprazole Sodium (Protonix -) 20 mg PO DAILY YESSENIA Senna (Senna -) 1 tab PO BID YESSENIA Senna (Senna -) 2 tab PO HS YESSENIA Valsartan (Diovan -) 80 mg PO DAILY [facility] - Objective Vital Signs: Vital Signs Temperature 97.2 F L 11/20/17 06:00 Pulse Rate 60 11/20/17 09:00 Respiratory Rate 22 11/20/17 09:00 Blood Pressure 124/49 11/20/17 09:00 O2 Sat by Pulse Oximetry (%) 99 11/20/17 09:00 Constitutional: Yes: No Distress, Calm Cardiovascular: Yes: Regular Rate and Rhythm Respiratory: Yes: CTA Bilaterally Gastrointestinal: Yes: Normal Bowel Sounds, Soft. No: Tenderness Edema: No Neurological: Yes: Alert, Oriented. No: Aphasia, Ataxia, Facial Droop, Unsteady Gait, Weakness Labs: CBC, BMP 11/20/17 05:30 11/20/17 05:30 INR, PTT INR 1.02 (0.82-1.09) 11/20/17 05:30 Problem List - Problems (1) Cerebrovascular accident (CVA) Code(s): I63.9 - CEREBRAL INFARCTION, UNSPECIFIED Qualifiers: CVA mechanism: unspecified Qualified Code(s): I63.9 - Cerebral infarction, unspecified (2) Atherosclerotic heart disease Code(s): I25.10 - ATHSCL HEART DISEASE OF [place] CORONARY ARTERY W/O ANG PCTRS (3) Coronary artery disease Code(s): I25.10 - ATHSCL HEART DISEASE OF [place] CORONARY ARTERY W/O ANG PCTRS Qualifiers: Coronary Disease-Associated Artery/Lesion type: [place] artery [place] vs. transplanted heart: [place] heart Associated angina: without angina Qualified Code(s): I25.10 - Atherosclerotic heart disease of [place] coronary artery without angina pectoris (4) HTN (hypertension) Code(s): I10 - ESSENTIAL (PRIMARY) HYPERTENSION Qualifiers: Hypertension type: essential hypertension Qualified Code(s): I10 - Essential (primary) hypertension Assessment/Plan PLAN S/p TPA Now speaking better- at baseline Evaluated by Physical therapy-- she ambulated steady Cardiology eval noted Neuro consult Awaiting brain MRI and Carotid doppler Swallow evaluation continue with current care ICU monitoring for 24 hours spoke with ICU attending and resident
[2017-11-20] MEDS: LACTOBACILLUS ACIDOPHILUS 1 CAP PO SCH (10:54)
[2017-11-20] MEDS: MUPIROCIN 2% TOPICAL OINTMENT FOR DECOLONIZATION NS SCH ×2 (10:54→21:14)
[2017-11-20] MEDS: VALSARTAN 80 MG TABLET (UD) PO SCH (10:55)
[2017-11-20] MEDS: PANTOPRAZOLE 20 MG TABLET (FP) PO SCH (10:55)
[2017-11-20] MEDS: HYDROCHLOROTHIAZIDE 12.5 MG CAPSULE (FP) PO SCH (10:55)
[2017-11-20] MEDS: SENNOSIDES 8.6MG TABLET (FP) PO SCH ×2 (10:55→21:14)
[2017-11-20] MEDS: BUDESONIDE/FORMETEROL FUMARATE 80/4.5 mcg INHALER IH SCH ×2 (10:56→21:14)
[2017-11-20] MEDS: PANTOPRAZOLE SODIUM 40 MG VIAL IVPUSH SCH ×2 (10:56→11:11)
--- NOTE | 2017-11-20 11:40 | CONSULT ---
Admitting History and Physical - Primary Care Physician PCP: Janiya Smith - Admission History of Present Illness: This is an 81 year old female with a significant past medical history of CAD, HTN, HLD presented to the ED with sudden onset of disorientation, dysarthria and expressive aphasia. As per the ED noted, her daughters' report pt was in her usual state of health today and then suddenly stopped speaking as they were leaving a restaurant after dinner. In the car on the way to the hospital, pt began speaking incoherently. In the ED, the patient was speaking in disorganized sentences and is repeating the phrase, "everything is everything," and appeared to become agitated by her inability to speak coherently. CT scan in ED was negative for acute hemorrhage. TPA was administered but was stopped after pt received 46mg due to bright red blood per rectum. As per ED MD noted, source of bleeding was noted to be a hemorrhoid which was packed with surgicel. Upon exam in ICU pt able to make needs known. Reports pain across lower back. NO further rectal bleeding. ER course was notable for: (1) CT head with no acute findings (2) WBC 11.6 (3) K 3.4 Received TPA.Significant improvement reported in language function. History Source: Patient, Family Member (Daughters observed my assessment and agree pt's expression not at baseline.), Medical Record Limitations to Obtaining History: Clinical Condition - Past Medical History Cardiovascular: Yes: CAD (s/p stent), HTN Pulmonary: Yes: COPD Gastrointestinal: Yes: GERD - Past Surgical History Past Surgical History: Yes: Appendectomy, Cholecystectomy - Smoking History Smoking history: Former smoker Have you smoked in the past 12 months: No Aproximately how many cigarettes per day: 20 If you are a former smoker, when did you quit?: 21 YRS AGO - Alcohol/Substance Use Hx Alcohol Use: No - Social History History of Recent Travel: No History - Admission Reason For Visit: STROKE - Diagnostics X-ray: Report Reviewed CT Scan: Report Reviewed MRI: Pending - General Mental Status: Alert and Oriented, Awake and Alert, Able to Follow Commands Attention: Intact Ability to Follow Directions: Good (Errors in following 3 stage, complex errors. Improved with cues to listen well.) Head/Neck Control: WFL - Hearing Hearing: Impaired Hearing Aide: Yes With Patient: Yes Speech Evaluation - Communication Primary Language: CYMRO Communication: Yes: Aphasia Oral Expression Ability: Yes: Mild Impairment - Speech Production Able to Make Needs Known: Yes: Mildly Impaired Intelligibility: Yes: WNL - Speech Characteristics Voice Loudness: Normal Voice Pitch: Yes: Normal Voice Phonatory-based Quality: Yes: Normal Speech Clarity: < 100% Nasal Resonance: Normal Articulation: Yes: Precise Rate of Speech: Intact - Language/Auditory Comprehension Follows: Yes: Complex Commands (with repetition needed) Observation: Able to respond to yes/no queries: Yes, Yes/No Confusion: No, Comprehends Conversational Speech: Yes, Benefits from Slow Speech: Yes, Benefits from Repetiton: Yes - Language/Verbal Expression Aphasia: Yes: Anomia, Paraphrasic Errors Able to Respond to Simple Queries: Yes: Mildly Impaired Able to Communicate Wants and Needs: Yes: WNL Functional Communication Status: Yes: Mildly Impaired Aware of Errors: No Attempts to Correct Errors: No Written Expression: Occasional word and spelling errors. - Memory/Perception FDC Memory: Yes: WNL Short Term Memory: Yes: WNL - Swallow Evaluation/Bedside Assessment Current Nutritional Intake: NPO Oral Secretions: Yes: WFL Dentition: Yes: Adequate, Dental Appliance Upper, Dental Appliance Lower Facial Symmetry at Rest: Symmetrical Facial Symmetry on Retraction: Symmetrical Facial Movement: Controlled Sensation: Normal Against Resistance Opening: Normal Against Resistance Closing: Normal Pucker Lips: Normal Smile: Normal Lingual Movement: Normal, Symmetric Lingual Speed of Movement: Normal Lingual Movement Strgth Against Opposition: Normal Lingual Movement Characteristics: Normal Velopharyngeal Movement: Normal Laryngeal Elevation: WFL Laryngeal Movement: Able to Palpate Rate of Intake: WFL Bolus Size: WFL Labial Seal: WFL Chewing: WFL Oral Prep Time: WFL A-P Transit: WFL Pocketing: None Timing of Swallow: WFL Coughing/Throat Clear: No Change in Voice: No Recommendations - Speech Evaluation, Impression/Plan Impression: Mild Aphasia with word errors and anomia, writing errors.o x 3. Cognitively seems intact. I suspect language function will continue to spontaneosly recover. Daughters observed and educated on ways to improve language function and improve pt's awareness of word errors and self correction. Swallowing intact. No dysarthria. - Dysphagia Impressions/Plan Swallowing Skills: WFL Dysphagia Impressions: No Impairment *Silent aspiration: cannot be R/O at bedside - Recommendations Diet Consistency: Regular Medication Administration: Whole with water Liquids: Thin Liquids
--- NOTE | 2017-11-20 11:41 | PN ---
Teaching Attending Note Name of Resident: Hever Castañeda ATTENDING PHYSICIAN STATEMENT I saw and evaluated the patient. I reviewed the resident's note and discussed the case with the resident. I agree with the resident's findings and plan as documented. SUBJECTIVE: Pt seen and examined in the ICU. Dysarthria and aphasia resolved. Pt feels at baseline aside from some dizziness. No further bleeding. OBJECTIVE: Last Vital Signs Temp Pulse Resp BP Pulse Ox 98.5 F 60 18 124/49 99 11/20/17 10:00 11/20/17 10:00 11/20/17 10:00 11/20/17 10:00 11/20/17 09:00 Intake & Output 11/17/17 11/18/17 11/19/17 11/20/17 23:59 23:59 23:59 23:59 Intake Total 344 Output Total 200 Balance 144 Weight 61.6 kg Gen: NAD at rest Heart: RRR Lung: decreased breath sounds at the bases Abd: soft, nontender Ext: no edema Neuro: nonfocal CBC, BMP 11/20/17 05:30 11/20/17 05:30 Active Medications Albuterol Sulfate (Ventolin 0.083% Nebulizer Soln -) 1 amp NEB Q6H PRN PRN Reason: SHORT OF BREATH/WHEEZING Atorvastatin Calcium (Lipitor -) 80 mg PO HS [facility] Budesonide/Formoterol Fumarate (Symbicort 80/4.5mcg -) 2 puff IH BID [facility] Last Admin: 11/20/17 10:56 Dose: 2 puff Chlorhexidine Gluconate (Hibiclens For Decolonization -) 1 applic TP HS [facility] Docusate Sodium (Colace -) 200 mg PO HS [facility] Hydrochlorothiazide (Hctz -) 12.5 mg PO DAILY [facility] Last Admin: 11/20/17 10:55 Dose: 12.5 mg Sodium Chloride (Normal Saline -) 1,000 mls @ 50 mls/hr IV ASDIR [facility] Stop: 11/21/17 08:44 Last Admin: 11/20/17 09:00 Dose: 50 mls/hr Lactobacillus Acidophilus (Bacid -) 1 tab PO DAILY [facility] Last Admin: 11/20/17 10:54 Dose: 1 tab Metoprolol Succinate (Toprol Xl -) 50 mg PO DAILY [facility] Last Admin: 11/20/17 10:55 Dose: 50 mg Mupirocin (Bactroban Ointment (For Decolonization) -) 1 applic NS BID [facility] Stop: 11/25/17 09:59 Last Admin: 11/20/17 10:54 Dose: 1 applic Pantoprazole Sodium (Protonix -) 20 mg PO DAILY [facility] Last Admin: 11/20/17 10:55 Dose: 20 mg Senna (Senna -) 1 tab PO BID [facility] Last Admin: 11/20/17 10:55 Dose: 1 tab Senna (Senna -) 2 tab PO [facility] Valsartan (Diovan -) 80 mg PO DAILY [facility] Last Admin: 11/20/17 10:55 Dose: 80 mg ASSESSMENT AND PLAN: Acute CVA s/p tPA GI bleed/hemorrhoids CAD COPD HTN GERD - neuro checks - BP control, keep <180/105 - MRI/MRA brain - rehab/PT/swallow eval - neuro eval - echocardiogram - carotid dopplers - telemetry monitoring - monitor H/H - monitor in ICU 24 hrs post tPA
--- NOTE | 2017-11-20 16:41 | EKG ---
Test Reason : Blood Pressure : / mmHG Vent. Rate : 073 BPM Atrial Rate : 073 BPM P-R Int : 148 ms QRS Dur : 074 ms QT Int : 396 ms P-R-T Axes : 053 -04 026 degrees QTc Int : 436 ms SINUS RHYTHM with pac's Confirmed by MD Qi, Reji ([id number]) on 11/20/2017 4:41:27 PM Referred By: GILLIAN Confirmed By:Reji Busby MD
--- NOTE | 2017-11-20 18:11 | CON.NEURO ---
Consult - History of Present Illness History of Present Illness: 81 year old female with a significant past medical history of CAD, HTN, HLD presented to the ED with sudden onset of disorientation, dysarthria and expressive aphasia. As per the ED noted, her daughters' report pt was in her usual state of health 11/19, and then suddenly stopped speaking as they were leaving a restaurant after dinner. In the car on the way to the hospital, pt began speaking incoherently. In the ED, the patient was speaking in disorganized sentences and is repeating the phrase, "everything is everything," and appeared to become agitated by her inability to speak coherently. CT scan in ED was negative for acute hemorrhage. TPA was administered but was stopped after pt received 46mg due to bright red blood per rectum. language has improved as of this am, denies focal weakness, mild COOPER . MRI BRAIN IMPRESSION: 1. No evidence of acute infarction. No mass effects or hydrocephalus. 2. Generalized, age appropriate volume loss with moderately severe chronic microvascular ischemic changes as described above. 3. Small fluid level in the right maxillary sinus is nonspecific. Please correlate clinically for acute sinusitis. IMPRESSION: 1. No occlusion or significant stenosis in the central branches of the lumbee of [place]. 2. A 2 x 2 mm triangular-shaped outpouching along the supraclinoid left ICA may be an infundibulum , however, aneurysm cannot be excluded. - Past Medical History Cardio/Vascular: Yes: CAD (s/p stent), HTN Pulmonary: Yes: COPD Gastrointestinal: Yes: GERD - Past Surgical History Past Surgical History: Yes: Appendectomy, Cholecystectomy - Alcohol/Substance Use Hx Alcohol Use: No - Smoking History Smoking history: Former smoker Have you smoked in the past 12 months: No Aproximately how many cigarettes per day: 20 If you are a former smoker, when did you quit?: 21 YRS AGO - Social History History of Recent Travel: No Home Medications - Allergies Allergies/Adverse Reactions: Allergies Allergy/AdvReac Type Severity Reaction Status Date / Time codeine [Codeine] Allergy Severe RESPIRATORY Verified 09/16/17 08:48 DISTRESS - Home Medications Home Medications: Ambulatory Orders Atorvastatin Ca [Lipitor] 80 mg PO HS 01/19/13 Docusate Sodium [Colace -] 200 mg PO HS 01/19/13 Metoprolol Succinate [Toprol XL -] 50 mg PO DAILY 01/19/13 Omeprazole [Prilosec (RX)] 20 mg PO DAILY 01/19/13 Salmeterol/Fluticasone [Advair 250Mcg/50Mcg -] 1 inh IH BID 01/19/13 Aspirin Coated [Ecotrin -] 81 mg PO DAILY tablet.ec 04/27/16 Albuterol Sulfate [Proair Respiclick] 90 mcg IH DAILY 10/29/16 Umeclidinium [place] [Incruse Ellipta] 62.5 mcg IH DAILY 10/29/16 Valsartan/Hydrochlorothiazide [Valsartan-Hctz 80-12.5 mg Tab] 1 each PO DAILY Furosemide [Lasix] 20 mg PO ASDIR 09/16/17 Acetaminophen [Tylenol .Regular Strength -] 650 mg PO Q4H PRN tablet 09/20/17 Lactobacillus Acidophilus [Bacid -] 1 tab PO DAILY #30 tab 09/20/17 Sennosides [Senna -] 2 tab PO HS #60 tablet 09/20/17 Physical Exam-Neuro Vital Signs: Vital Signs Temperature 98.6 F 11/20/17 14:00 Pulse Rate 81 11/20/17 14:00 Respiratory Rate 20 11/20/17 14:00 Blood Pressure 144/61 11/20/17 14:00 O2 Sat by Pulse Oximetry (%) 99 11/20/17 09:00 Labs: CBC, BMP 11/20/17 05:30 11/20/17 05:30 INR, PTT INR 1.02 (0.82-1.09) 11/20/17 05:30 - Neuro Exam Level Of Consciousness: Yes: Alert, Oriented to Person (eomi, no facial, no drift, no focal weakness, gait deferred, ) NIH Stroke Scale - Last Known Well Date/Time & Onset Date Last Known Well: 11/19/17 Time Last Known Well: 18:00 - Initial Evaluation Level of consciousness: Alert Ask patient the month and their age: Answers both correctly Ask patient to open & close eyes; make fist and let go: Obeys both correctly Best gaze (horizontal eye movement): Normal Visual field testing: No visual field loss Facial paresis (Show teeth/raise eyebrows/close eyes tight): Normal symmetrical movement Motor Function: Left Arm: Normal Motor Function: Right Arm: Normal (extends arm 90 (or 45) degrees for 10 seconds without drift Motor Function: Left Leg: Normal (extends leg 30 degrees for 5 seconds without drift) Motor Function: Right Leg: Normal (extends leg 30 degrees for 5 seconds without drift) Limb Ataxia: No ataxia Sensory(Use pinprick test arms,legs,trunk,face/side to side): Normal Best language (Describe picture, name items, read sentences): No Aphasia Dysarthria (read several words): Normal articulation Extinction and Inattention: No abnormality - Total Score NIH Stroke Scale Score: 0 Imaging - Results Cat Scan: Report Reviewed, Image Reviewed MRI: Report Reviewed, Image Reviewed Problem List - Problems (1) Transient ischemic attack (TIA) Code(s): G45.9 - TRANSIENT CEREBRAL ISCHEMIC ATTACK, UNSPECIFIED (2) Atherosclerotic heart disease Code(s): I25.10 - ATHSCL HEART DISEASE OF [place] CORONARY ARTERY W/O ANG PCTRS (3) COPD (chronic obstructive pulmonary disease) with acute bronchitis Code(s): J44.0 - CHRONIC OBSTRUCTIVE PULMON DISEASE W ACUTE LOWER RESP INFCT Assessment/Plan 81 year old female with a significant past medical history of CAD, HTN, HLD presents with transient aphasia like Sx/SP TPA (incomplete dose bc of GI bleed/ hemorrhoids) -- sx appear resolved ; r/o LMCA embolic event , MRI (-) for infarct; check carotid dopplers , holter,echo A1c, TSh ASA if GI status stable /statin BP 140-160 Ok otherwise stable, can be moved to floor -tele from neuro stand point Dr Bain
[2017-11-20] MEDS ORDERED: DOCUSATE SODIUM 100 MG CAPSULE (FP) PO SCH (22:00)
[2017-11-20] MEDS ORDERED: CHLORHEXIDINE GLUCONATE 4% CLEANSER FOR DECOLONIZATION TP SCH (22:00)
[2017-11-20] MEDS ORDERED: ATORVASTATIN CA 80 MG TABLET (FP) PO SCH (22:00)
[2017-11-20] MEDS ORDERED: SENNOSIDES 8.6MG TABLET (FP) PO SCH (22:00)
--- NOTE | 2017-11-21 05:49 | PN ---
Physical Exam: SUBJECTIVE: No acute events overnight. Pt reports having a possible hemorrhoidal bleed with her BM this morning. Could not assess for stool occult due to pt defecating in pt room bathroom. No overt bleeding. Tested patient on her apartment number as previously done and pt did not have any errors in recall or expression seen previously. Otherwise, pt reports continued back pain. She reports sleeping flat and only walking to bathroom as far as activity. Denies any leg weakness, changes in sensorium grossly, incontinence. OBJECTIVE: Vital Signs Period Temp Pulse Resp BP Sys/Oh Pulse Ox Last 24 Hr 97.2 F-98.7 F 49-82 16-22 91-144/37-64 99-99 GENERAL: NAD, awake, alert, oriented x3. HEENT: NC/AT, ALBERTO, EOMI, sclera anicteric and without injections, moist mucosa , no bleeding in the posterior oropharynx NECK: No JVD, Slight L carotid bruit remains (no bruit on R) LUNGS: CTA bilaterally, no wheezes, no crackles, no accessory muscle use. HEART: RRR, S1, S2 without murmur, rub or gallop. ABDOMEN: Soft, nontender, nondistended, normoactive bowel sounds, no guarding, no hepatomegaly. EXTREMITIES: 2+ DP pulses, warm, well-perfused, no edema. BACK: No ecchymosis, no tenderness to palpation on spinous process palpation, no CVA tenderness, no gross abnormalities NEUROLOGICAL: Cranial nerves II through XII grossly intact. Facial symmetry. Strength 5/5 with hand shoe clerk, arm flexion, extension, hand abduction, plantar/ dorsal flexion, hip flexion/extension. No deficits with [id number]. No dysdiadochokinesia. Normal speech without any aphasic deficits today, gait stable. PSYCH: Normal mood, normal affect. SKIN: Warm, dry, no rashes or lesions noted Laboratory Results - last 24 hr 11/20/17 11/20/17 11/20/17 05:30 05:30 05:30 WBC 8.6 RBC 2.99 L D Hgb 9.5 L D Hct 27.7 L D MCV 92.6 MCH 31.8 MCHC 34.3 RDW 14.2 Plt Count 196 MPV 9.4 Neutrophils % 66.2 Lymphocytes % 17.3 D Monocytes % 11.9 H Eosinophils % 4.0 D Basophils % 0.6 PT with INR 11.50 INR 1.02 Sodium 142 Potassium 4.1 Chloride 107 Carbon Dioxide 25 Anion Gap 10 BUN 20 H Creatinine 0.9 Creat Clearance w eGFR > 60 Random Glucose 92 Calcium 7.9 L Total Bilirubin 0.4 D AST 17 ALT 15 Alkaline Phosphatase 87 Total Protein 5.6 L Albumin 2.9 L Active Medications Generic Name Dose Route Start Last Admin Trade Name Freq PRN Reason Stop Dose Admin Albuterol Sulfate 1 amp 11/19/17 23:32 Ventolin 0.083% Nebulizer Soln - NEB Q6H PRN SHORT OF BREATH/WHEEZING Atorvastatin Calcium 80 mg 11/20/17 22:00 11/20/17 21:15 Lipitor - PO 80 mg HS YESSENIA Administration Budesonide/Formoterol Fumarate 2 puff 11/20/17 10:00 11/20/17 21:14 Symbicort 80/4.5mcg - IH 2 puff BID YESSENIA Administration Chlorhexidine Gluconate 1 applic 11/20/17 22:00 11/20/17 21:14 Hibiclens For Decolonization - TP 1 applic HS YESSENIA Administration Docusate Sodium 200 mg 11/20/17 22:00 11/20/17 21:14 Colace - PO Not Given HS YESSENIA Hydrochlorothiazide 12.5 mg 11/20/17 10:00 11/20/17 10:55 Hctz - PO 12.5 mg DAILY YESSENIA Administration Lactobacillus Acidophilus 1 tab 11/20/17 10:00 11/20/17 10:54 Bacid - PO 1 tab DAILY YESSENIA Administration Metoprolol Succinate 50 mg 11/20/17 10:00 11/20/17 10:55 Toprol Xl - PO 50 mg DAILY YESSENIA Administration Mupirocin 1 applic 11/20/17 10:00 11/20/17 21:14 Bactroban Ointment (For Decolonization) - NS 11/25/17 09:59 1 applic BID YESSENIA Administration Pantoprazole Sodium 20 mg 11/20/17 10:00 11/20/17 10:55 Protonix - PO 20 mg DAILY YESSENIA Administration Senna 1 tab 11/20/17 10:00 11/20/17 21:14 Senna - PO Not Given BID YESSENIA Senna 2 tab 11/20/17 22:00 03/27/18 21:13 Senna - PO Not Given HS YESSENIA Valsartan 80 mg 11/20/17 10:00 11/20/17 10:55 Diovan - PO 80 mg DAILY YESSENIA Administration ASSESSMENT/PLAN: Neuro: CVA --Pt received TPA that was stopped at 46mg due to BRBPR (no bleeding at this time) --Maintain BP <140/60 at this point --MRI/MRA showing no acute ischemic stroke, chronic changes noted; on MRA pt has potentially a triangular outpouching that may be an aneurysm noted --Will follow-up on outpatient setting --Neuro on board --Carotid dopplers showing L>R stenosis; previous study in 2016 did not have velocity numerics so unable to tell if worsened --Will discuss with cardiology --Echo showing impaired relaxation of LV with normal size. Mild MR --Continue Lipitor 80mg HS PO --Will recommend ASA 81mg upon discharge pending stable GI status --Possible holter monitoring for PAF on outpatient basis Respiratory: Not in respiratory distress Cardiovascular Hypertension history --Continue Diovan 80mg qDaily --Continue HCTZ 12.5mg qDaily --Continue Toprol XL 50mg PO qDaily Renal: No failure present FEN: Fluids: No fluids currently Electrolyte abnormalities: None currently Nutrition: Regular diet PPX: DVT - SCDs to both legs GI - not indicated Deconditioning - Continued encouragement for OOB and PT Dispo: Transfer to [facility]; 24h window post-TPA finished Case discussed with Dr. Edmond Castañeda, DO - IM PGY-1 Visit type - Emergency Visit Emergency Visit: No - New Patient This patient is new to me today: No - Critical Care Critical Care patient: Yes Total Critical Care Time (in minutes): 35 Critical Care Statement: The care of this patient involved high complexity decision making to prevent further life threatening deterioration of the patient 's condition and/or to evaluate & treat vital organ system(s) failure or risk of failure.
[2017-11-21 06:56] LABS: ALBUMIN 2.7 g/dl (3.4-5.0); ANION GAP 5 (8-16); BILIRUBIN,TOTAL 0.3 mg/dL (0.2-1.0); BLOOD UREA NITROGEN 13 mg/dL (7-18); CALCIUM 8.1 mg/dL (8.5-10.1); CHLORIDE 109 mmol/L (98-107); CO2 28 mmol/L (21-32); CREATININE 0.8 mg/dL (0.55-1.02); GLUCOSE,RANDOM 91 mg/dL (74-106); SGOT/AST 13 U/L (15-37); SGPT/ALT 11 U/L (12-78); SODIUM 142 mmol/L (136-145); TOT PROT 5.6 g/dl (6.4-8.2)
[2017-11-21 06:57] LABS: ALK PHOS 90 U/L (45-117)
[2017-11-21 07:36] LABS: HEMATOCRIT 29.9 % (32.4-45.2); MCH 31.3 pg (25.7-33.7); MCHC 33.5 g/dl (32.0-36.0); MEAN CELL VOLUME 93.4 fl (80-96); MEAN PLT VOLUME 9.4 fl (7.5-11.1); PLATELET COUNT 215 K/MM3 (134-434); RDW 14.1 % (11.6-15.6); WHITE BLOOD COUNT 7.2 K/mm3 (4.0-10.0)
[2017-11-21] MEDS: SENNOSIDES 8.6MG TABLET (FP) PO SCH (10:20)
[2017-11-21] MEDS: LACTOBACILLUS ACIDOPHILUS 1 CAP PO SCH (10:20)
[2017-11-21] MEDS: VALSARTAN 80 MG TABLET (UD) PO SCH (10:20)
[2017-11-21] MEDS: HYDROCHLOROTHIAZIDE 12.5 MG CAPSULE (FP) PO SCH (10:20)
--- NOTE | 2017-11-21 10:20 | PN ---
Progress Note, Physician Chief Complaint: Feels well She ate her breakfast fine No complaints - Current Medication List Current Medications: Active Medications Albuterol Sulfate (Ventolin 0.083% Nebulizer Soln -) 1 amp NEB Q6H PRN PRN Reason: SHORT OF BREATH/WHEEZING Atorvastatin Calcium (Lipitor -) 80 mg PO [facility] Last Admin: 11/20/17 21:15 Dose: 80 mg Budesonide/Formoterol Fumarate (Symbicort 80/4.5mcg -) 2 puff IH BID [facility] Last Admin: 11/20/17 21:14 Dose: 2 puff Chlorhexidine Gluconate (Hibiclens For Decolonization -) 1 applic TP [facility] Last Admin: 11/20/17 21:14 Dose: 1 applic Docusate Sodium (Colace -) 200 mg PO [facility] Last Admin: 11/20/17 21:14 Dose: Not Given Hydrochlorothiazide (Hctz -) 12.5 mg PO DAILY [facility] Last Admin: 11/20/17 10:55 Dose: 12.5 mg Lactobacillus Acidophilus (Bacid -) 1 tab PO DAILY [facility] Last Admin: 11/20/17 10:54 Dose: 1 tab Metoprolol Succinate (Toprol Xl -) 50 mg PO DAILY [facility] Last Admin: 11/20/17 10:55 Dose: 50 mg Mupirocin (Bactroban Ointment (For Decolonization) -) 1 applic NS BID [facility] Stop: 11/25/17 09:59 Last Admin: 11/20/17 21:14 Dose: 1 applic Pantoprazole Sodium (Protonix -) 20 mg PO DAILY [facility] Last Admin: 11/20/17 10:55 Dose: 20 mg Senna (Senna -) 1 tab PO BID [facility] Last Admin: 11/20/17 21:14 Dose: Not Given Senna (Senna -) 2 tab PO [facility] Last Admin: 11/20/17 21:13 Dose: Not Given Valsartan (Diovan -) 80 mg PO DAILY [facility] Last Admin: 11/20/17 10:55 Dose: 80 mg - Objective Vital Signs: Vital Signs Temperature 98.7 F 11/21/17 06:00 Pulse Rate 58 L 11/21/17 08:00 Respiratory Rate 17 11/21/17 08:00 Blood Pressure 145/58 11/21/17 08:00 O2 Sat by Pulse Oximetry (%) 99 11/20/17 19:59 Constitutional: Yes: No Distress Cardiovascular: Yes: Regular Rate and Rhythm Respiratory: Yes: CTA Bilaterally Gastrointestinal: Yes: Normal Bowel Sounds, Soft. No: Tenderness Edema: No Labs: CBC, BMP 11/21/17 06:10 11/21/17 06:20 INR, PTT INR 1.02 (0.82-1.09) 11/20/17 05:30 Problem List - Problems (1) Cerebrovascular accident (CVA) Code(s): I63.9 - CEREBRAL INFARCTION, UNSPECIFIED Qualifiers: CVA mechanism: unspecified Qualified Code(s): I63.9 - Cerebral infarction, unspecified (2) Atherosclerotic heart disease Code(s): I25.10 - ATHSCL HEART DISEASE OF [place] CORONARY ARTERY W/O ANG PCTRS (3) Coronary artery disease Code(s): I25.10 - ATHSCL HEART DISEASE OF [place] CORONARY ARTERY W/O ANG PCTRS Qualifiers: Coronary Disease-Associated Artery/Lesion type: [place] artery [place] vs. transplanted heart: [place] heart Associated angina: without angina Qualified Code(s): I25.10 - Atherosclerotic heart disease of [place] coronary artery without angina pectoris (4) HTN (hypertension) Code(s): I10 - ESSENTIAL (PRIMARY) HYPERTENSION Qualifiers: Hypertension type: essential hypertension Qualified Code(s): I10 - Essential (primary) hypertension Assessment/Plan PLAN S/p TPA speaking better- at baseline Evaluated by Physical therapy-- she ambulated steady Cardiology eval noted Neuro consult noted brain MRI -- results reviewed Carotid doppler-- no significant stenosis continue with meds
[2017-11-21] MEDS: PANTOPRAZOLE 20 MG TABLET (FP) PO SCH (10:21)
[2017-11-21] MEDS: MUPIROCIN 2% TOPICAL OINTMENT FOR DECOLONIZATION NS SCH (10:28)
[2017-11-21 11:32] LABS: CHOLESTEROL 120 mg/dL (50-200); HDL CHOLESTEROL 52 mg/dL (40-60); LDL CHOLESTEROL (ONLY SJRH) 60 mg/dL (5-100); TRIGLYCERIDES 72 mg/dL (35-160)
--- NOTE | 2017-11-21 11:40 | PN ---
Teaching Attending Note Name of Resident: Hever Castañeda ATTENDING PHYSICIAN STATEMENT I saw and evaluated the patient. I reviewed the resident's note and discussed the case with the resident. I agree with the resident's findings and plan as documented. SUBJECTIVE: Pt seen and examined in the ICU. Still with mild headache but denies dysarthria or word finding. Reports small bloody bowel movement this AM. MRI without significant findings OBJECTIVE: Last Vital Signs Temp Pulse Resp BP Pulse Ox 97.4 F L 81 19 118/41 99 11/21/17 10:00 11/21/17 10:00 11/21/17 10:00 11/21/17 10:00 11/20/17 19:59 Intake & Output 11/18/17 11/19/17 11/20/17 11/21/17 23:59 23:59 23:59 23:59 Intake Total 644 Output Total 400 Balance 244 Weight 61.6 kg Gen: NAD at rest Heart: RRR Lung: decreased breath sounds at the bases Abd: soft, nontender Ext: no edema CBC, BMP 11/21/17 06:10 11/21/17 06:20 Active Medications Albuterol Sulfate (Ventolin 0.083% Nebulizer Soln -) 1 amp NEB Q6H PRN PRN Reason: SHORT OF BREATH/WHEEZING Atorvastatin Calcium (Lipitor -) 80 mg PO [facility] Last Admin: 11/20/17 21:15 Dose: 80 mg Budesonide/Formoterol Fumarate (Symbicort 80/4.5mcg -) 2 puff IH BID [facility] Last Admin: 11/20/17 21:14 Dose: 2 puff Chlorhexidine Gluconate (Hibiclens For Decolonization -) 1 applic TP [facility] Last Admin: 11/20/17 21:14 Dose: 1 applic Docusate Sodium (Colace -) 200 mg PO [facility] Last Admin: 11/20/17 21:14 Dose: Not Given Hydrochlorothiazide (Hctz -) 12.5 mg PO DAILY [facility] Last Admin: 11/21/17 10:20 Dose: 12.5 mg Lactobacillus Acidophilus (Bacid -) 1 tab PO DAILY [facility] Last Admin: 11/21/17 10:20 Dose: 1 tab Metoprolol Succinate (Toprol Xl -) 50 mg PO DAILY [facility] Last Admin: 11/21/17 10:21 Dose: 50 mg Mupirocin (Bactroban Ointment (For Decolonization) -) 1 applic NS BID [facility] Stop: 11/25/17 09:59 Last Admin: 11/21/17 10:28 Dose: 1 applic Pantoprazole Sodium (Protonix -) 20 mg PO DAILY [facility] Last Admin: 11/21/17 10:21 Dose: 20 mg Senna (Senna -) 1 tab PO BID [facility] Last Admin: 11/21/17 10:20 Dose: 1 tab Senna (Senna -) 2 tab PO HS [facility] Last Admin: 11/20/17 21:13 Dose: Not Given Valsartan (Diovan -) 80 mg PO DAILY [facility] Last Admin: 11/21/17 10:20 Dose: 80 mg ASSESSMENT AND PLAN: Acute CVA s/p tPA GI bleed/hemorrhoids CAD COPD HTN GERD - neuro checks - BP control - rehab/PT/swallow eval in progress - neuro f/u - telemetry monitoring - monitor H/H - DVT prophylaxis
--- NOTE | 2017-11-21 12:52 | PN ---
Progress Note, Physician History of Present Illness: Expressive aphasia and dysarthia resolved, mild headache, no episodes of PAF on telemetry. - Current Medication List Current Medications: Active Medications Albuterol Sulfate (Ventolin 0.083% Nebulizer Soln -) 1 amp NEB Q6H PRN PRN Reason: SHORT OF BREATH/WHEEZING Atorvastatin Calcium (Lipitor -) 80 mg PO [facility] Last Admin: 11/20/17 21:15 Dose: 80 mg Budesonide/Formoterol Fumarate (Symbicort 80/4.5mcg -) 2 puff IH BID [facility] Last Admin: 11/20/17 21:14 Dose: 2 puff Chlorhexidine Gluconate (Hibiclens For Decolonization -) 1 applic TP [facility] Last Admin: 11/20/17 21:14 Dose: 1 applic Docusate Sodium (Colace -) 200 mg PO [facility] Last Admin: 11/20/17 21:14 Dose: Not Given Hydrochlorothiazide (Hctz -) 12.5 mg PO DAILY [facility] Last Admin: 11/21/17 10:20 Dose: 12.5 mg Lactobacillus Acidophilus (Bacid -) 1 tab PO DAILY [facility] Last Admin: 11/21/17 10:20 Dose: 1 tab Metoprolol Succinate (Toprol Xl -) 50 mg PO DAILY [facility] Last Admin: 11/21/17 10:21 Dose: 50 mg Mupirocin (Bactroban Ointment (For Decolonization) -) 1 applic NS BID [facility] Stop: 11/25/17 09:59 Last Admin: 11/21/17 10:28 Dose: 1 applic Pantoprazole Sodium (Protonix -) 20 mg PO DAILY [facility] Last Admin: 11/21/17 10:21 Dose: 20 mg Senna (Senna -) 1 tab PO BID [facility] Last Admin: 11/21/17 10:20 Dose: 1 tab Senna (Senna -) 2 tab PO [facility] Last Admin: 11/20/17 21:13 Dose: Not Given Valsartan (Diovan -) 80 mg PO DAILY [facility] Last Admin: 11/21/17 10:20 Dose: 80 mg - Objective Vital Signs: Vital Signs Temperature 97.4 F L 11/21/17 10:00 Pulse Rate 81 11/21/17 10:00 Respiratory Rate 19 11/21/17 10:00 Blood Pressure 118/41 11/21/17 10:00 O2 Sat by Pulse Oximetry (%) 98 11/21/17 09:00 Constitutional: Yes: No Distress, Calm, Thin Neck: Yes: Supple Cardiovascular: Yes: Regular Rate and Rhythm Respiratory: Yes: Regular, Diminished, On Nasal O2 Gastrointestinal: Yes: Normal Bowel Sounds, Soft Edema: No Labs: CBC, BMP 11/21/17 06:10 11/21/17 06:20 INR, PTT INR 1.02 (0.82-1.09) 11/20/17 05:30 - ....Imaging Ultrasound: Report Reviewed (Carotid US: No significant stenosis) EKG: Report Reviewed (Tele: SR, no PAF) Problem List - Problems (1) Transient ischemic attack (TIA) Code(s): G45.9 - TRANSIENT CEREBRAL ISCHEMIC ATTACK, UNSPECIFIED Qualifiers: Transient cerebral ischemia type: unspecified Qualified Code(s): G45.9 - Transient cerebral ischemic attack, unspecified (2) COPD (chronic obstructive pulmonary disease) with acute bronchitis Code(s): J44.0 - CHRONIC OBSTRUCTIVE PULMON DISEASE W ACUTE LOWER RESP INFCT (3) Coronary artery disease Code(s): I25.10 - ATHSCL HEART DISEASE OF [place] CORONARY ARTERY W/O ANG PCTRS Qualifiers: Coronary Disease-Associated Artery/Lesion type: [place] artery [place] vs. transplanted heart: [place] heart Associated angina: without angina Qualified Code(s): I25.10 - Atherosclerotic heart disease of [place] coronary artery without angina pectoris (4) Diastolic dysfunction without heart failure Code(s): I51.9 - HEART DISEASE, UNSPECIFIED (5) Hyperlipidemia Code(s): E78.5 - HYPERLIPIDEMIA, UNSPECIFIED Qualifiers: Hyperlipidemia type: pure hypercholesterolemia Qualified Code(s): E78.00 - Pure hypercholesterolemia, unspecified; E78.0 - Pure hypercholesterolemia (6) Hypertensive cardiomegaly without heart failure Code(s): I11.9 - HYPERTENSIVE HEART DISEASE WITHOUT HEART FAILURE (7) S/P drug eluting coronary stent placement Code(s): Z95.5 - PRESENCE OF CORONARY ANGIOPLASTY IMPLANT AND GRAFT (8) Thrombosed external hemorrhoid Code(s): K64.5 - PERIANAL VENOUS THROMBOSIS Assessment/Plan MRI BRAIN IMPRESSION: 1. No evidence of acute infarction. No mass effects or hydrocephalus. 2. Generalized, age appropriate volume loss with moderately severe chronic microvascular ischemic changes as described above. 3. Small fluid level in the right maxillary sinus is nonspecific. Please correlate clinically for acute sinusitis. IMPRESSION: 1. No occlusion or significant stenosis in the central branches of the [place]. 2. A 2 x 2 mm triangular-shaped outpouching along the supraclinoid left ICA may be an infundibulum , however, aneurysm cannot be excluded. 11/20/2017 Echo: Abnormal LV compliance, normal biventricular size and fxn, normal biatrial sizes, mild TR 1. Acute TIA post thrombolytic therapy/TPA administration with no residual deficit 2. CAD post PCI (stent), angina pectoris stable 3. Diastolic dysfunction with chronic class 0-I NYHA classification LV failure, compensated/euvolemic 4. HTN 5. Hyperlipidemia 6. Carotid stenosis, mild in severity 7. COPD 8. 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 History of vertebral body fracture post kypho-plasty 10. Recent thrombosed external hemorrhoids post intervention 11. Hematochezia post thrombolysis PLAN: 1. Continue Toprol XL 50 qd 2. Continue Diovan 80 qd 3. Continue HCTZ 12.5 qd with caution 4. Continue Lipitor 80 qhs 5. ASA +/- Plavix vs. Aggrenox as per neurology once hemostasis achieved 6. Consider MAJO as outpatient 8. Monitor for arrhythmia and would recommend extended outpatient monitor to exclude PAF/paroxysmal atrial fibrillation 9. Rehab/PT/swallow eval in progress 10. GI prophylaxis, transfer to telemetry, plan of care d/w daughter and patient
[2017-11-21] MEDS: BUDESONIDE/FORMETEROL FUMARATE 80/4.5 mcg INHALER IH SCH ×2 (13:28→22:17)
[2017-11-21] MEDS ORDERED: ACETAMINOPHEN 325 MG TABLET (FP) PO PRN (15:26)
[2017-11-21] MEDS ORDERED: ALBUTEROL SO4 0.083% IH SOL 2.5 MG/3 ML VIAL.NEB. NEB PRN (20:27)
[2017-11-21] MEDS ORDERED: ATORVASTATIN CA 80 MG TABLET (FP) PO SCH (22:00)
[2017-11-21] MEDS ORDERED: SENNOSIDES 8.6MG TABLET (FP) PO SCH (22:00)
[2017-11-21] MEDS ORDERED: DOCUSATE SODIUM 100 MG CAPSULE (FP) PO SCH (22:00)
[2017-11-21] MEDS ORDERED: PT OWN MED DRAWER 7, Y5N ONE ×2 (22:14→22:16)
[2017-11-22 06:33] LABS: HEMOGLOBIN 10.1 GM/dL (10.7-15.3); MCH 32.1 pg (25.7-33.7); MCHC 34.8 g/dl (32.0-36.0); MEAN CELL VOLUME 92.2 fl (80-96); MEAN PLT VOLUME 9.4 fl (7.5-11.1); PLATELET COUNT 228 K/MM3 (134-434); RBC 3.15 M/mm3 (3.60-5.2); RDW 14.2 % (11.6-15.6); WHITE BLOOD COUNT 6.8 K/mm3 (4.0-10.0)
[2017-11-22 07:07] LABS: ANION GAP 2 (8-16); BLOOD UREA NITROGEN 19 mg/dL (7-18); CHLORIDE 108 mmol/L (98-107); CO2 30 mmol/L (21-32); CREATININE 0.9 mg/dL (0.55-1.02); GLUCOSE,RANDOM 96 mg/dL (74-106); POTASSIUM 4.7 mmol/L (3.5-5.1); SODIUM 140 mmol/L (136-145)
--- NOTE | 2017-11-22 08:50 | PN ---
Physical Exam: SUBJECTIVE: No acute events overnight. Pt still awaiting bed to Telemetry. Pt's prior headache was terminated with response to Tylenol 650mg. Today pt's back pain has resolved as well. No other complaints today. No bloody bowel movements since previous day. OBJECTIVE: Vital Signs Period Temp Pulse Resp BP Sys/Oh Pulse Ox Last 24 Hr 97.4 F-98.4 F 65-85 16-20 94-147/35-83 98-98 GENERAL: NAD, awake, alert, oriented x3. HEENT: NC/AT, ALBERTO, EOMI, sclera anicteric and without injections, moist mucosa , no bleeding in the posterior oropharynx NECK: No JVD, Slight L carotid bruit remains (no bruit on R) LUNGS: CTA bilaterally, no wheezes, no crackles, no accessory muscle use. HEART: RRR, S1, S2 without murmur, rub or gallop. ABDOMEN: Soft, nontender, nondistended, normoactive bowel sounds, no guarding, no hepatomegaly. EXTREMITIES: 2+ DP pulses, warm, well-perfused, no edema. NEUROLOGICAL: Nonfocal. Speech normal. Strength 5/5 grossly in limbs. Sensation remains intact SKIN: Warm, dry, no rashes or lesions noted Laboratory Results - last 24 hr 11/22/17 11/22/17 06:15 06:15 WBC 6.8 RBC 3.15 L Hgb 10.1 L Hct 29.0 L MCV 92.2 MCH 32.1 MCHC 34.8 RDW 14.2 Plt Count 228 MPV 9.4 Sodium 140 Potassium 4.7 Chloride 108 H Carbon Dioxide 30 Anion Gap 2 L BUN 19 H Creatinine 0.9 Creat Clearance w eGFR Random Glucose 96 Calcium 8.0 L Total Bilirubin AST ALT Alkaline Phosphatase Total Protein Albumin Triglycerides Cholesterol Total LDL Cholesterol HDL Cholesterol Stool Occult Blood Active Medications Generic Name Dose Route Start Last Admin Trade Name Freq PRN Reason Stop Dose Admin Acetaminophen 650 mg 11/21/17 15:26 11/21/17 15:50 Tylenol - PO 650 mg Q4H PRN Administration Headache Albuterol Sulfate 1 amp 11/21/17 20:27 Ventolin 0.083% Nebulizer Soln - NEB Q6H PRN SHORT OF BREATH/WHEEZING Atorvastatin Calcium 80 mg 11/21/17 22:00 11/21/17 22:15 Lipitor - PO 80 mg HS YESSENIA Administration Budesonide/Formoterol Fumarate 2 puff 11/21/17 22:00 11/21/17 22:17 Symbicort 80/4.5mcg - IH 2 puff BID YESSENIA Administration Docusate Sodium 200 mg 11/21/17 22:00 11/21/17 22:15 Colace - PO 200 mg HS YESSENIA Administration Hydrochlorothiazide 12.5 mg 11/22/17 10:00 Hctz - PO DAILY YESSENIA Lactobacillus Acidophilus 1 tab 11/22/17 10:00 Bacid - PO DAILY YESSENIA Metoprolol Succinate 50 mg 11/22/17 10:00 Toprol Xl - PO DAILY YESSENIA Pantoprazole Sodium 20 mg 11/22/17 10:00 Protonix - PO DAILY YESSENIA Senna 2 tab 11/21/17 22:00 11/21/17 22:15 Senna - PO 2 tab HS YESSENIA Administration Valsartan 80 mg 11/22/17 10:00 Diovan - PO DAILY YESSENIA ASSESSMENT/PLAN: Neuro: CVA --Pt received TPA that was stopped at 46mg due to BRBPR (no bleeding at this time) --Maintain BP <140/60 at this point --MRI showing no acute ischemic stroke, chronic changes noted; on MRA pt has potentially a triangular outpouching that may be an aneurysm noted --Will follow-up on outpatient setting --Neuro on board --Carotid dopplers reviewed --Echo showing impaired relaxation of LV with normal size. Mild MR --Continue Lipitor 80mg HS PO --Will recommend ASA 81mg upon discharge pending stable GI status --Possible holter monitoring for PAF on outpatient basis Respiratory: Not in respiratory distress Cardiovascular Hypertension history --Continue Diovan 80mg qDaily --Continue HCTZ 12.5mg qDaily --Continue Toprol XL 50mg PO qDaily Renal: No failure present FEN: Fluids: No fluids currently Electrolyte abnormalities: None currently Nutrition: Regular diet PPX: DVT - SCDs to both legs GI - not indicated Deconditioning - Continued encouragement for OOB and PT Dispo: Transfer to [facility] in place Case discussed with Dr. Edmond Castañeda, DO - IM PGY-1 Visit type - Emergency Visit Emergency Visit: No - New Patient This patient is new to me today: No - Critical Care Critical Care patient: No
[2017-11-22] MEDS ORDERED: HYDROCHLOROTHIAZIDE 12.5 MG CAPSULE (FP) PO SCH (10:00)
[2017-11-22] MEDS ORDERED: LACTOBACILLUS ACIDOPHILUS 1 CAP PO SCH (10:00)
[2017-11-22] MEDS ORDERED: PANTOPRAZOLE 20 MG TABLET (FP) PO SCH (10:00)
[2017-11-22] MEDS ORDERED: VALSARTAN 80 MG TABLET (UD) PO SCH (10:00)
[2017-11-22] MEDS ORDERED: ASPIRIN COATED 81 MG TABLET.EC PO SCH (11:15)
[2017-11-22] MEDS: BUDESONIDE/FORMETEROL FUMARATE 80/4.5 mcg INHALER IH SCH (11:29)
--- NOTE | 2017-11-22 11:31 | PN ---
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 Pt producing uncommon and abstract words without cues. I suspect language function is close to or back to baseline. Swallowing without difficulty. No further f/u is indicated.
--- NOTE | 2017-11-22 11:40 | DS ---
Physical Examination Vital Signs: Vital Signs Temperature 98.7 F 11/22/17 10:00 Pulse Rate 73 11/22/17 10:00 Respiratory Rate 23 11/22/17 10:00 Blood Pressure 125/62 11/22/17 10:00 O2 Sat by Pulse Oximetry (%) 98 11/21/17 20:59 Labs: CBC, BMP 11/22/17 06:15 11/22/17 06:15 Discharge Summary Reason For Visit: STROKE Current Active Problems Cerebrovascular accident (CVA) (Acute) Transient ischemic attack (TIA) (Acute) Condition: Improved - Instructions Diet, Activity, Other Instructions: may use stool softeners as needed follow up with cardiology for 30 days monitor Referrals: Lucy Munoz MD [Primary Care Provider] - Too Dutta MD [Staff Physician] - Nehemias Bain DO [Staff Physician] - Disposition: HOME - Home Medications Comprehensive Discharge Medication List: Ambulatory Orders Atorvastatin Ca [Lipitor] 80 mg PO HS 01/19/13 Docusate Sodium [Colace -] 200 mg PO HS 01/19/13 Metoprolol Succinate [Toprol XL -] 50 mg PO DAILY 01/19/13 Omeprazole [Prilosec (RX)] 20 mg PO DAILY 01/19/13 Salmeterol/Fluticasone [Advair 250Mcg/50Mcg -] 1 inh IH BID 01/19/13 Aspirin Coated [Ecotrin -] 81 mg PO DAILY tablet.ec 04/27/16 Albuterol Sulfate [Proair Respiclick] 90 mcg IH DAILY 10/29/16 Umeclidinium [place] [Incruse Ellipta] 62.5 mcg IH DAILY 10/29/16 Valsartan/Hydrochlorothiazide [Valsartan-Hctz 80-12.5 mg Tab] 1 each PO DAILY Acetaminophen [Tylenol .Regular Strength -] 650 mg PO Q4H PRN tablet 09/20/17 Lactobacillus Acidophilus [Bacid -] 1 tab PO DAILY #30 tab 09/20/17 Sennosides [Senna -] 2 tab PO HS #60 tablet 09/20/17
--- NOTE | 2017-11-22 11:46 | PN ---
Teaching Attending Note Name of Resident: Hever Castañeda ATTENDING PHYSICIAN STATEMENT I saw and evaluated the patient. I reviewed the resident's note and discussed the case with the resident. I agree with the resident's findings and plan as documented. SUBJECTIVE: Pt seen and examined in the ICU. Headache improving. No nausea or vomiting. Sinus rhythm on telemetry. OBJECTIVE: Last Vital Signs Temp Pulse Resp BP Pulse Ox 98.7 F 73 23 125/62 98 11/22/17 10:00 11/22/17 10:00 11/22/17 10:00 11/22/17 10:00 11/21/17 20:59 Intake & Output 11/19/17 11/20/17 11/21/17 11/22/17 23:59 23:59 23:59 23:59 Intake Total 644 650 Output Total 400 Balance 244 650 Weight 61.6 kg Gen: NAD at rest Heart: RRR Lung: decreased breath sounds at the bases Abd: soft, nontender Ext: no edema CBC, BMP 11/22/17 06:15 11/22/17 06:15 Active Medications Acetaminophen (Tylenol -) 650 mg PO Q4H PRN PRN Reason: Headache Last Admin: 11/21/17 15:50 Dose: 650 mg Albuterol Sulfate (Ventolin 0.083% Nebulizer Soln -) 1 amp NEB Q6H PRN PRN Reason: SHORT OF BREATH/WHEEZING Aspirin (Ecotrin -) 81 mg PO DAILY [facility] Atorvastatin Calcium (Lipitor -) 80 mg PO HS [facility] Last Admin: 11/21/17 22:15 Dose: 80 mg Budesonide/Formoterol Fumarate (Symbicort 80/4.5mcg -) 2 puff IH BID [facility] Last Admin: 11/22/17 11:29 Dose: 2 puff Docusate Sodium (Colace -) 200 mg PO HS [facility] Last Admin: 11/21/17 22:15 Dose: 200 mg Hydrochlorothiazide (Hctz -) 12.5 mg PO DAILY [facility] Last Admin: 11/22/17 11:28 Dose: 12.5 mg Lactobacillus Acidophilus (Bacid -) 1 tab PO DAILY [facility] Last Admin: 11/22/17 11:29 Dose: 1 tab Metoprolol Succinate (Toprol Xl -) 50 mg PO DAILY [facility] Last Admin: 11/22/17 11:28 Dose: 50 mg Pantoprazole Sodium (Protonix -) 20 mg PO DAILY [facility] Last Admin: 11/22/17 11:28 Dose: 20 mg Senna (Senna -) 2 tab PO HS [facility] Last Admin: 11/21/17 22:15 Dose: 2 tab Valsartan (Diovan -) 80 mg PO DAILY [facility] Last Admin: 11/22/17 11:28 Dose: 80 mg ASSESSMENT AND PLAN: Acute CVA s/p tPA GI bleed/hemorrhoids CAD COPD HTN GERD - neuro checks - BP control - rehab/PT - telemetry monitoring - monitor H/H - DVT prophylaxis
--- NOTE | 2017-11-22 12:16 | PN ---
Progress Note, Physician History of Present Illness: Expressive aphasia and dysarthia resolved as has rectal bleeding, mild headache , no episodes of PAF on telemetry. - Current Medication List Current Medications: Active Medications Acetaminophen (Tylenol -) 650 mg PO Q4H PRN PRN Reason: Headache Last Admin: 11/21/17 15:50 Dose: 650 mg Albuterol Sulfate (Ventolin 0.083% Nebulizer Soln -) 1 amp NEB Q6H PRN PRN Reason: SHORT OF BREATH/WHEEZING Aspirin (Ecotrin -) 81 mg PO DAILY [facility] Atorvastatin Calcium (Lipitor -) [address] [facility] Last Admin: 11/21/17 22:15 Dose: 80 mg Budesonide/Formoterol Fumarate (Symbicort 80/4.5mcg -) 2 puff IH BID [facility] Last Admin: 11/22/17 11:29 Dose: 2 puff Docusate Sodium (Colace -) 200 mg PO [facility] Last Admin: 11/21/17 22:15 Dose: 200 mg Hydrochlorothiazide (Hctz -) 12.5 mg PO DAILY [facility] Last Admin: 11/22/17 11:28 Dose: 12.5 mg Lactobacillus Acidophilus (Bacid -) 1 tab PO DAILY [facility] Last Admin: 11/22/17 11:29 Dose: 1 tab Metoprolol Succinate (Toprol Xl -) 50 mg PO DAILY [facility] Last Admin: 11/22/17 11:28 Dose: 50 mg Pantoprazole Sodium (Protonix -) 20 mg PO DAILY [facility] Last Admin: 11/22/17 11:28 Dose: 20 mg Senna (Senna -) 2 tab PO [facility] Last Admin: 11/21/17 22:15 Dose: 2 tab Valsartan (Diovan -) 80 mg PO DAILY [facility] Last Admin: 11/22/17 11:28 Dose: 80 mg - Objective Vital Signs: Vital Signs Temperature 98.7 F 11/22/17 10:00 Pulse Rate 73 11/22/17 10:00 Respiratory Rate 23 11/22/17 10:00 Blood Pressure 125/62 11/22/17 10:00 O2 Sat by Pulse Oximetry (%) 98 11/21/17 20:59 Constitutional: Yes: No Distress, Calm, Thin Neck: Yes: Supple Cardiovascular: Yes: Regular Rate and Rhythm Respiratory: Yes: Regular, CTA Bilaterally Gastrointestinal: Yes: Normal Bowel Sounds, Soft Edema: No Labs: CBC, BMP 11/22/17 06:15 11/22/17 06:15 INR, PTT INR 1.02 (0.82-1.09) 11/20/17 05:30 Problem List - Problems (1) Transient ischemic attack (TIA) Code(s): G45.9 - TRANSIENT CEREBRAL ISCHEMIC ATTACK, UNSPECIFIED Qualifiers: Transient cerebral ischemia type: unspecified Qualified Code(s): G45.9 - Transient cerebral ischemic attack, unspecified (2) COPD (chronic obstructive pulmonary disease) with acute bronchitis Code(s): J44.0 - CHRONIC OBSTRUCTIVE PULMON DISEASE W ACUTE LOWER RESP INFCT (3) Coronary artery disease Code(s): I25.10 - ATHSCL HEART DISEASE OF [place] CORONARY ARTERY W/O ANG PCTRS Qualifiers: Coronary Disease-Associated Artery/Lesion type: [place] artery [place] vs. transplanted heart: [place] heart Associated angina: without angina Qualified Code(s): I25.10 - Atherosclerotic heart disease of [place] coronary artery without angina pectoris (4) Diastolic dysfunction without heart failure Code(s): I51.9 - HEART DISEASE, UNSPECIFIED (5) Hyperlipidemia Code(s): E78.5 - HYPERLIPIDEMIA, UNSPECIFIED Qualifiers: Hyperlipidemia type: pure hypercholesterolemia Qualified Code(s): E78.00 - Pure hypercholesterolemia, unspecified; E78.0 - Pure hypercholesterolemia (6) Hypertensive cardiomegaly without heart failure Code(s): I11.9 - HYPERTENSIVE HEART DISEASE WITHOUT HEART FAILURE (7) S/P drug eluting coronary stent placement Code(s): Z95.5 - PRESENCE OF CORONARY ANGIOPLASTY IMPLANT AND GRAFT (8) Thrombosed external hemorrhoid Code(s): K64.5 - PERIANAL VENOUS THROMBOSIS Assessment/Plan MRI BRAIN IMPRESSION: 1. No evidence of acute infarction. No mass effects or hydrocephalus. 2. Generalized, age appropriate volume loss with moderately severe chronic microvascular ischemic changes as described above. 3. Small fluid level in the right maxillary sinus is nonspecific. Please correlate clinically for acute sinusitis. IMPRESSION: 1. No occlusion or significant stenosis in the central branches of the [place]. 2. A 2 x 2 mm triangular-shaped outpouching along the supraclinoid left ICA may be an infundibulum , however, aneurysm cannot be excluded. 11/20/2017 Echo: Abnormal LV compliance, normal biventricular size and fxn, normal biatrial sizes, mild TR 1. Acute TIA post thrombolytic therapy/TPA administration with no residual deficit 2. CAD post PCI (stent), angina pectoris stable 3. Diastolic dysfunction with chronic class 0-I NYHA classification LV failure, compensated/euvolemic 4. HTN 5. Hyperlipidemia 6. Carotid stenosis, mild in severity 7. COPD 8. 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 History of vertebral body fracture post kyphoplasty 10. Recent thrombosed external hemorrhoids post intervention 11. Hematochezia post thrombolysis PLAN: 1. Continue Toprol XL 50 qd 2. Continue Diovan 80 qd 3. Continue HCTZ 12.5 qd 4. Continue Lipitor 80 qhs 5. On ASA 81 qd, consider Aggrenox vs Plavix per neurology input 6. Consider MAJO as outpatient 8. Monitor for arrhythmia and would recommend extended outpatient monitor to exclude PAF/paroxysmal atrial fibrillation 9. Rehab/PT/swallow eval in progress 10. GI prophylaxis, d/c planning, plan of care d/w daughter and patient, f/u in office
[2017-11-22 15:25] VITALS: TEMP 98.6
[2017-11-22 17:56] VITALS: BP 99/65; PULSE 88
== END 2017-11-22 17:56 | disposition home or self-care (01) | DRG 62 ==
LOC: FER 19:00 → JICU 23:21
PROVIDERS: ADMIT Internal Medicine; ATTEND Internal Medicine
DX: G45.8 Other transient cerebral ischemic attacks and related syndromes (principal); R47.01 Aphasia; I50.32 Chronic diastolic (congestive) heart failure; K62.5 Hemorrhage of anus and rectum; I25.10 Atherosclerotic heart disease of native coronary artery without angina pectoris; J44.9 Chronic obstructive pulmonary disease, unspecified; K21.9 Gastro-esophageal reflux disease without esophagitis; I11.0 Hypertensive heart disease with heart failure; E78.5 Hyperlipidemia, unspecified; Z87.891 Personal history of nicotine dependence; Z95.5 Presence of coronary angioplasty implant and graft; E87.6 Hypokalemia; K59.00 Constipation, unspecified; K64.4 Residual hemorrhoidal skin tags; R47.1 Dysarthria and anarthria; M51.37 Other intervertebral disc degeneration, lumbosacral region; R29.700 NIHSS score 0
CPT/HCPCS: 36415; 70450-TC; 70544-TC; 70551-TC; 71045-TC-FY; 80048; 80053; 80061; 82272; 82550; 83721; 84484; 85025; 85027; 85610; 86850; 86900; 86901; 93005; 93306-TC; 93880-TC; 97116-GP; 97161-GP; 99283-25; J2997; J7030

== ENCOUNTER 2021-08-28 12:30 | Emergency (ER) | payer OTHER, BC ==
[2021-08-28 13:45] VITALS: BP 154/65; PULSE 77; TEMP 97.8; BMI 19.5
[2021-08-28] MEDS ORDERED: ALBUTEROL SO4 2.5/IPRATROPIUM 0.5 INH SOL 3 ML VIAL.NEB. NEB ONE ×2 (13:55→14:23)
[2021-08-28 14:43] LABS: ACTIVATED PTT 29.9 SECONDS (25.2-36.5)
[2021-08-28 14:47] LABS: INR 1.26 (0.83-1.09)
[2021-08-28 14:56] LABS: ALBUMIN 3.6 g/dl (3.4-5.0); BILIRUBIN,TOTAL 0.6 mg/dl (0.2-1); CALCIUM 8.8 mg/dl (8.5-10); MAGNESIUM 1.8 mg/dL (1.8-2.4); TOT PROT 6.2 g/dl (6.4-8.2)
[2021-08-28 16:37] LABS: BASO % 0.9 % (0-2.0); EOS % 2.6 % (0-4.5); HEMATOCRIT 32.2 % (32.4-45.2); HEMOGLOBIN 10.5 GM/dL (10.7-15.3); LYMPH % 11.8 % (8-40); MCH 30.6 pg (25.7-33.7); MCHC 32.7 g/dl (32.0-36.0); MEAN CELL VOLUME 93.6 fl (80-96); MONO % 10.3 % (3.8-10.2); NEUT % 74.4 % (42.8-82.8); PLATELET COUNT 222 10^3/uL (134-434); RBC 3.44 M/mm3 (3.60-5.2); RDW 15.5 % (11.6-15.6); WHITE BLOOD COUNT 6.2 K/mm3 (4.0-10.0)
[2021-08-28 17:04] LABS: N-TERMINAL BNP 1176.7 pg/ml (5-450)
== END 2021-08-28 17:12 | disposition home or self-care (01) ==
LOC: FER 12:30
PROC: 3E0F7GC Introduction of Other Therapeutic Substance into Respiratory Tract, Via Natural or Artificial Opening (ICD-10-PCS; principal; 2021-08-28)
DX: B97.4 Respiratory syncytial virus as the cause of diseases classified elsewhere (principal)
CPT/HCPCS: 36415; 71045-TC-FY; 80053; 82550; 83735; 83880; 84484; 85025; 85610; 85730; 87804; 87807; 93005; 99285-25; C9803; U0003; U0005

== ENCOUNTER 2021-09-03 17:35 | Inpatient (IN) | payer OTHER, BC ==
[2021-09-03] MEDS ORDERED: methylPREDNISolone NA SUCC 125 MG/2 ML VIAL IVPB ONE (18:57)
[2021-09-03 19:03] LABS: ACTIVATED PTT 28.9 SECONDS (25.2-36.5)
[2021-09-03 19:05] LABS: ALBUMIN 3.1 g/dl (3.4-5.0); BILIRUBIN,TOTAL 0.9 mg/dl (0.2-1); CALCIUM 8.1 mg/dl (8.5-10); CREATININE 1.2 mg/dl (0.55-1.3); MAGNESIUM 1.7 mg/dL (1.8-2.4); TOT PROT 6.8 g/dl (6.4-8.2)
[2021-09-03 19:08] LABS: INR 1.26 (0.83-1.09)
[2021-09-03] MEDS ORDERED: methylPREDNISolone NA SUCC 125 MG/2 ML VIAL ONE (19:16)
[2021-09-03 19:29] LABS: ARTERIAL BLD GAS O2 SATURATION 99.8 % (95-98); ARTERIAL BLOOD GAS BASE EXCESS 1.3 mmol/L (-2-2); ARTERIAL BLOOD GAS PO2 372.3 mmHg (80-100); ARTERIAL BLOOD GAS pH 7.344 (7.350-7.450)
[2021-09-03 19:38] LABS: BASO % 0.1 % (0-2.0); HEMATOCRIT 32.7 % (32.4-45.2); HEMOGLOBIN 10.9 GM/dL (10.7-15.3); LYMPH % 4.1 % (8-40); MCH 30.6 pg (25.7-33.7); MCHC 33.4 g/dl (32.0-36.0); MEAN CELL VOLUME 91.7 fl (80-96); MEAN PLT VOLUME 8.9 fl (7.5-11.1); MONO % 6.8 % (3.8-10.2); PLATELET COUNT 246 10^3/uL (134-434); RBC 3.57 M/mm3 (3.60-5.2); RDW 15.2 % (11.6-15.6); WHITE BLOOD COUNT 16.9 K/mm3 (4.0-10.0)
[2021-09-03] MEDS ORDERED: ALBUTEROL SO4 2.5/IPRATROPIUM 0.5 INH SOL 3 ML VIAL.NEB. NEB ONE ×2 (19:54→20:08)
[2021-09-03 19:58] LABS: N-TERMINAL BNP 3552.4 pg/ml (5-450)
[2021-09-03] MEDS ORDERED: POLYETHYLENE GLYCOL 3350 119 GM BTL PO PRN (20:27)
[2021-09-03] MEDS ORDERED: ACETAMINOPHEN 325 MG TABLET (FP) PO PRN (20:27)
[2021-09-03] MEDS ORDERED: MAGNESIUM 1GM/D5W - 1 GM/100 ML IVPB IVPB ONE (20:35)
[2021-09-03] MEDS ORDERED: ASPIRIN 81 MG CHEWABLE TABLETS PO ONE (20:40)
[2021-09-03] MEDS ORDERED: ASPIRIN 81 MG CHEWABLE TABLETS ONE (20:47)
[2021-09-03] MEDS ORDERED: PATIENT'S OWN MEDICATION (NON-FORMULARY) (Albuterol Sulfate [Proair Digihaler] 90 MCG Aer. IH PRN (20:50)
[2021-09-03] MEDS ORDERED: FUROSEMIDE 20 MG TABLET (FP) PO SCH (21:00)
[2021-09-03] MEDS ORDERED: ALBUTEROL SO4 HFA INHALER IH PRN (21:04)
[2021-09-03] MEDS: FUROSEMIDE 20 MG TABLET (FP) PO SCH (21:10)
[2021-09-03] MEDS ORDERED: FUROSEMIDE 40 MG TABLET (FP) ONE (21:16)
[2021-09-04 01:23] LABS: EPI CELLS 24 /uL (0-25.1); HYALINE CASTS 3 /uL (0-3.1); URINE APPEARANCE CLOUDY; URINE BACTERIA 1235 /uL (0-1359); URINE BILIRUBIN NEGATIVE (NEGATIVE); URINE COLOR YELLOW; URINE GLUCOSE (UA) NEGATIVE (NEGATIVE); URINE KETONE NEGATIVE (NEGATIVE); URINE LEUK ESTERASE 2+ (NEGATIVE); URINE NITRITE NEGATIVE (NEGATIVE); URINE PROTEIN TRACE (NEGATIVE); URINE WBC 389 /uL (0-25.8)
[2021-09-04] MEDS: MEMANTINE HCL 10 MG TABLET (FP) PO SCH ×2 (03:10→22:26)
[2021-09-04] MEDS: DOCUSATE SODIUM 100 MG CAPSULE (FP) PO SCH ×3 (03:10→22:26)
[2021-09-04] MEDS ORDERED: cefTRIAXone SODIUM 1 GM VIAL ONE ×3 (03:13→10:46)
[2021-09-04] MEDS ORDERED: DEXTROSE 5%-WATER - 50 ML IVPB ONE ×2 (03:13→10:46)
[2021-09-04] MEDS: CEFTRIAXONE 1 GM in DEXTROSE 5%-WATER - 50 ML IVPB SCH ×3 (03:19→11:02)
[2021-09-04] MEDS: methylPREDNISolone NA SUCC 40 MG/1 ML VIAL IVPUSH SCH ×3 (03:19→17:29)
[2021-09-04] MEDS ORDERED: CEFTRIAXONE 1 GM in DEXTROSE 5%-WATER - 50 ML IVPB SCH (03:30)
[2021-09-04 04:21] LABS: URINE RBC 33.7 /uL (0-23.9)
[2021-09-04 09:23] LABS: CALCIUM 8.5 mg/dl (8.5-10); CREATININE 1.1 mg/dl (0.55-1.3); MAGNESIUM 2.2 mg/dL (1.8-2.4)
[2021-09-04 09:31] LABS: BASO % 0.1 % (0-2.0); HEMATOCRIT 28.5 % (32.4-45.2); HEMOGLOBIN 9.8 GM/dL (10.7-15.3); LYMPH % 3.4 % (8-40); MCH 31.3 pg (25.7-33.7); MCHC 34.5 g/dl (32.0-36.0); MEAN CELL VOLUME 90.8 fl (80-96); MEAN PLT VOLUME 9.1 fl (7.5-11.1); MONO % 1.6 % (3.8-10.2); NEUT % 94.9 % (42.8-82.8); PLATELET COUNT 228 10^3/uL (134-434); RBC 3.14 M/mm3 (3.60-5.2); RDW 15.2 % (11.6-15.6); WHITE BLOOD COUNT 12.5 K/mm3 (4.0-10.0)
[2021-09-04] MEDS ORDERED: PATIENT'S OWN MEDICATION (NON-FORMULARY) (Omeprazole 20 MG Capsule.Dr) PO SCH (10:00)
[2021-09-04] MEDS ORDERED: PATIENT'S OWN MEDICATION (NON-FORMULARY) (Ipratropium/Albuterol Sulfate 1 PUFF Inhaler) IH SCH (10:00)
[2021-09-04] MEDS: EZETIMIBE 10 MG TABLET (FP) PO SCH (10:58)
[2021-09-04] MEDS: CYANOCOBALAMIN 1,000 MCG TABLET (FP) PO SCH (10:58)
[2021-09-04] MEDS: APIXABAN 2.5 MG TABLET PO SCH ×3 (10:59→22:26)
[2021-09-04] MEDS: ASPIRIN COATED 81 MG TABLET.EC PO SCH (10:59)
[2021-09-04] MEDS: CHOLECALCIFEROL (VIT D3) 1,000 UNIT (25 MCG) TABLET PO SCH (11:00)
[2021-09-04] MEDS: VALSARTAN 80 MG TABLET PO SCH (11:00)
[2021-09-04] MEDS: ATORVASTATIN CA 80 MG TABLET (FP) PO SCH (11:00)
[2021-09-04] MEDS: PANTOPRAZOLE 20 MG TABLET PO SCH (11:01)
[2021-09-04] MEDS: AZITHROMYCIN IVPB 500 MG/250 ML BAG IVPB SCH (11:13)
[2021-09-04 12:09] LABS: ANISOCYTOSIS 0; HELMET CELLS 0; HOWELL-JOLLY BODIES 0; MACROCYTOSIS 0; OVALOCYTE 0; PLATELET ESTIMATE NORMAL; ROULEAU 0; SICKELED CELLS 0; TARGET CELLS 0; TEAR DROP CELLS 0; TOXIC GRANULATION 0
[2021-09-04] MEDS: METHYL SALICYLATE/MENTHOL OINT 30 GM TUBE TP SCH ×2 (12:45→22:28)
[2021-09-04] MEDS: FLUTICASONE/UMECLIDIN/VILANTER(100-62.5-25 TRELEGY ELLIPTA) INAHLER IH SCH (12:46)
[2021-09-04] MEDS ORDERED: FUROSEMIDE 40 MG/4 ML INJECTABLE VIAL IVPUSH ONE (14:39)
[2021-09-05 06:07] LABS: SARS-CoV-2 NAA Not Detected (Not Detected)
[2021-09-05 09:16] LABS: ALBUMIN 2.6 g/dl (3.4-5.0); BILIRUBIN,TOTAL 0.7 mg/dl (0.2-1); CALCIUM 8.7 mg/dl (8.5-10); CREATININE 1.1 mg/dl (0.55-1.3); MAGNESIUM 2.2 mg/dL (1.8-2.4); TOT PROT 6.4 g/dl (6.4-8.2)
[2021-09-05] MEDS: methylPREDNISolone NA SUCC 40 MG/1 ML VIAL IVPUSH SCH ×3 (09:59→17:49)
[2021-09-05] MEDS: METHYL SALICYLATE/MENTHOL OINT 30 GM TUBE TP SCH ×2 (10:00→22:56)
[2021-09-05] MEDS: DOCUSATE SODIUM 100 MG CAPSULE (FP) PO SCH ×2 (10:00→22:56)
[2021-09-05] MEDS: ASPIRIN COATED 81 MG TABLET.EC PO SCH (10:01)
[2021-09-05] MEDS: CHOLECALCIFEROL (VIT D3) 1,000 UNIT (25 MCG) TABLET PO SCH (10:01)
[2021-09-05] MEDS: FUROSEMIDE 20 MG TABLET (FP) PO SCH (10:01)
[2021-09-05] MEDS: VALSARTAN 80 MG TABLET PO SCH (10:01)
[2021-09-05] MEDS: EZETIMIBE 10 MG TABLET (FP) PO SCH (10:02)
[2021-09-05] MEDS: ATORVASTATIN CA 80 MG TABLET (FP) PO SCH (10:02)
[2021-09-05] MEDS: PANTOPRAZOLE 20 MG TABLET PO SCH (10:02)
[2021-09-05] MEDS: CEFTRIAXONE 1 GM in DEXTROSE 5%-WATER - 50 ML IVPB SCH (10:04)
[2021-09-05] MEDS: FLUTICASONE/UMECLIDIN/VILANTER(100-62.5-25 TRELEGY ELLIPTA) INAHLER IH SCH (10:05)
[2021-09-05] MEDS: APIXABAN 2.5 MG TABLET PO SCH ×2 (10:08→22:55)
[2021-09-05] MEDS: AZITHROMYCIN IVPB 500 MG/250 ML BAG IVPB SCH (10:10)
[2021-09-05] MEDS: CYANOCOBALAMIN 1,000 MCG TABLET (FP) PO SCH (10:10)
[2021-09-05 10:21] LABS: BASO % 0.1 % (0-2.0); HEMATOCRIT 30.8 % (32.4-45.2); HEMOGLOBIN 10.6 GM/dL (10.7-15.3); LYMPH % 5.3 % (8-40); MCH 31.1 pg (25.7-33.7); MCHC 34.5 g/dl (32.0-36.0); MEAN CELL VOLUME 90.3 fl (80-96); MEAN PLT VOLUME 8.9 fl (7.5-11.1); MONO % 6.5 % (3.8-10.2); NEUT % 88.1 % (42.8-82.8); PLATELET COUNT 321 10^3/uL (134-434); RBC 3.41 M/mm3 (3.60-5.2); RDW 15.3 % (11.6-15.6); WHITE BLOOD COUNT 13.1 K/mm3 (4.0-10.0)
[2021-09-05] MEDS: MEMANTINE HCL 10 MG TABLET (FP) PO SCH (22:55)
[2021-09-06] MEDS: methylPREDNISolone NA SUCC 40 MG/1 ML VIAL IVPUSH SCH ×2 (01:03→09:40)
[2021-09-06 08:47] LABS: ALBUMIN 2.4 g/dl (3.4-5.0); BILIRUBIN,TOTAL 0.6 mg/dl (0.2-1); CALCIUM 8.3 mg/dl (8.5-10); CREATININE 1.2 mg/dl (0.55-1.3); TOT PROT 5.9 g/dl (6.4-8.2)
[2021-09-06] MEDS ORDERED: cefTRIAXone SODIUM 1 GM VIAL ONE (09:06)
[2021-09-06] MEDS ORDERED: DEXTROSE 5%-WATER - 50 ML IVPB ONE (09:07)
[2021-09-06] MEDS: CEFTRIAXONE 1 GM in DEXTROSE 5%-WATER - 50 ML IVPB SCH (09:41)
[2021-09-06] MEDS: CHOLECALCIFEROL (VIT D3) 1,000 UNIT (25 MCG) TABLET PO SCH (09:43)
[2021-09-06] MEDS: PANTOPRAZOLE 20 MG TABLET PO SCH (09:44)
[2021-09-06] MEDS: ASPIRIN COATED 81 MG TABLET.EC PO SCH (09:44)
[2021-09-06] MEDS: VALSARTAN 80 MG TABLET PO SCH (09:44)
[2021-09-06] MEDS: DOCUSATE SODIUM 100 MG CAPSULE (FP) PO SCH ×2 (09:44→21:22)
[2021-09-06] MEDS: EZETIMIBE 10 MG TABLET (FP) PO SCH (09:44)
[2021-09-06] MEDS: ATORVASTATIN CA 80 MG TABLET (FP) PO SCH (09:45)
[2021-09-06] MEDS: FLUTICASONE/UMECLIDIN/VILANTER(100-62.5-25 TRELEGY ELLIPTA) INAHLER IH SCH (09:45)
[2021-09-06] MEDS: CYANOCOBALAMIN 1,000 MCG TABLET (FP) PO SCH (09:45)
[2021-09-06] MEDS: APIXABAN 2.5 MG TABLET PO SCH ×2 (09:45→21:22)
[2021-09-06] MEDS: METHYL SALICYLATE/MENTHOL OINT 30 GM TUBE TP SCH ×2 (09:46→21:29)
[2021-09-06] MEDS: AZITHROMYCIN IVPB 500 MG/250 ML BAG IVPB SCH (09:48)
[2021-09-06 10:51] LABS: BASO % 0.1 % (0-2.0); HEMATOCRIT 30.2 % (32.4-45.2); HEMOGLOBIN 10.1 GM/dL (10.7-15.3); LYMPH % 6.8 % (8-40); MCH 30.4 pg (25.7-33.7); MCHC 33.5 g/dl (32.0-36.0); MEAN CELL VOLUME 90.9 fl (80-96); MEAN PLT VOLUME 8.5 fl (7.5-11.1); MONO % 4.1 % (3.8-10.2); PLATELET COUNT 344 10^3/uL (134-434); RBC 3.32 M/mm3 (3.60-5.2); WHITE BLOOD COUNT 8.8 K/mm3 (4.0-10.0)
[2021-09-06] MEDS ORDERED: methylPREDNISolone NA SUCC 40 MG/1 ML VIAL IVPUSH SCH ×2 (14:16→21:00)
[2021-09-06] MEDS: POLYETHYLENE GLYCOL (HEALTHYLAX) 3350 17 GM PACKET PO PRN (17:53)
[2021-09-06] MEDS: MEMANTINE HCL 10 MG TABLET (FP) PO SCH (21:22)
[2021-09-06 22:01] VITALS: TEMP 97.8
[2021-09-07 07:16] VITALS: BP 148/41; PULSE 66
[2021-09-07 09:03] LABS: ALBUMIN 2.4 g/dl (3.4-5.0); BILIRUBIN,TOTAL 0.6 mg/dl (0.2-1); CALCIUM 8.5 mg/dl (8.5-10); TOT PROT 5.5 g/dl (6.4-8.2)
[2021-09-07] MEDS ORDERED: cefTRIAXone SODIUM 1 GM VIAL ONE (09:32)
[2021-09-07] MEDS ORDERED: DEXTROSE 5%-WATER - 50 ML IVPB ONE (09:33)
[2021-09-07 10:14] LABS: BASO % 0.1 % (0-2.0); EOS % 0.2 % (0-4.5); HEMATOCRIT 32.2 % (32.4-45.2); HEMOGLOBIN 10.8 GM/dL (10.7-15.3); LYMPH % 15.8 % (8-40); MCH 30.5 pg (25.7-33.7); MCHC 33.5 g/dl (32.0-36.0); MEAN CELL VOLUME 90.9 fl (80-96); MEAN PLT VOLUME 8.3 fl (7.5-11.1); MONO % 15.1 % (3.8-10.2); NEUT % 68.8 % (42.8-82.8); PLATELET COUNT 373 10^3/uL (134-434); RBC 3.54 M/mm3 (3.60-5.2); RDW 15.4 % (11.6-15.6); WHITE BLOOD COUNT 10.6 K/mm3 (4.0-10.0)
[2021-09-07] MEDS ORDERED: predniSONE 20 MG TABLET (UD) PO ONE (10:33)
[2021-09-07] MEDS ORDERED: methylPREDNISolone NA SUCC 40 MG/1 ML VIAL IVPUSH SCH (10:45)
[2021-09-07] MEDS: AZITHROMYCIN IVPB 500 MG/250 ML BAG IVPB SCH (10:56)
[2021-09-07] MEDS: CEFTRIAXONE 1 GM in DEXTROSE 5%-WATER - 50 ML IVPB SCH (10:56)
[2021-09-07] MEDS: ASPIRIN COATED 81 MG TABLET.EC PO SCH (10:57)
[2021-09-07] MEDS: DOCUSATE SODIUM 100 MG CAPSULE (FP) PO SCH (10:57)
[2021-09-07] MEDS: VALSARTAN 80 MG TABLET PO SCH (10:57)
[2021-09-07] MEDS: POLYETHYLENE GLYCOL (HEALTHYLAX) 3350 17 GM PACKET PO PRN (10:57)
[2021-09-07] MEDS: ATORVASTATIN CA 80 MG TABLET (FP) PO SCH (10:57)
[2021-09-07] MEDS: CHOLECALCIFEROL (VIT D3) 1,000 UNIT (25 MCG) TABLET PO SCH (10:58)
[2021-09-07] MEDS: APIXABAN 2.5 MG TABLET PO SCH (10:58)
[2021-09-07] MEDS: PANTOPRAZOLE 20 MG TABLET PO SCH (10:59)
[2021-09-07] MEDS: CYANOCOBALAMIN 1,000 MCG TABLET (FP) PO SCH (10:59)
[2021-09-07] MEDS: EZETIMIBE 10 MG TABLET (FP) PO SCH (10:59)
[2021-09-07] MEDS: FLUTICASONE/UMECLIDIN/VILANTER(100-62.5-25 TRELEGY ELLIPTA) INAHLER IH SCH (11:04)
[2021-09-07] MEDS: METHYL SALICYLATE/MENTHOL OINT 30 GM TUBE TP SCH (11:05)
[2021-09-07] MEDS ORDERED: AMOX TR/POT CLAV 875MG/125MG TABLETS (FP) PO SCH (11:15)
[2021-09-07 11:39] LABS: MAGNESIUM 2.3 mg/dL (1.8-2.4)
[2021-09-07 21:18] VITALS: BMI 17.8
== END 2021-09-07 14:06 | DRG 193 ==
LOC: FER 17:35 → FM/S 19:09
PROVIDERS: ADMIT Hospitalist; ATTEND Nurse Practitioner Acute Care
DX: J12.1 Respiratory syncytial virus pneumonia (principal); J96.21 Acute and chronic respiratory failure with hypoxia; I50.32 Chronic diastolic (congestive) heart failure; N39.0 Urinary tract infection, site not specified; I11.0 Hypertensive heart disease with heart failure; F03.90 Unspecified dementia, unspecified severity, without behavioral disturbance, psychotic disturbance, mood disturbance, and anxiety; I48.0 Paroxysmal atrial fibrillation; K21.9 Gastro-esophageal reflux disease without esophagitis; I25.10 Atherosclerotic heart disease of native coronary artery without angina pectoris; E78.00 Pure hypercholesterolemia, unspecified; E78.5 Hyperlipidemia, unspecified; D72.829 Elevated white blood cell count, unspecified
CPT/HCPCS: 36415; 36600; 71045-TC-FY; 71250-TC; 80048; 80053; 81003; 82550; 82803; 82962; 83605; 83735; 83880; 84484; 85025; 85610; 85730; 87040; 87086; 87899; 93005; 94761; 97116-GP; 97162-GP; 99285-25; C9803; U0003; U0005

== ENCOUNTER 2023-05-07 08:07 | Inpatient (IN) | payer OTHER, BC ==
[2023-05-07 09:49] LABS: HEMATOCRIT 29.9 % (32.4-45.2); HEMOGLOBIN 9.9 G/dL (10.7-15.3); MCH 32.4 pg (25.7-33.7); MEAN CELL VOLUME 98.1 fl (80-96); MEAN PLT VOLUME 10.2 fl (7.5-11.1); PLATELET COUNT 228.1 10^3/uL (134-434); RBC 3.05 10^6/uL (3.60-5.2); RDW 17.7 % (11.6-15.6)
[2023-05-07 10:10] LABS: ALBUMIN 3.5 g/dl (3.4-5.0); CALCIUM 8.2 mg/dl (8.5-10.1); CREATININE 0.9 mg/dl (0.6-1.3); POTASSIUM 3.9 mmol/L (3.5-5.1); SGOT/AST 33.5 U/L (15-37); SGPT/ALT 26.8 U/L (7-52); TOT PROT 6.2 g/dl (6.4-8.2)
[2023-05-07] MEDS ORDERED: predniSONE 20 MG TABLET (UD) PO ONE (10:42)
[2023-05-07] MEDS ORDERED: predniSONE 20 MG TABLET (UD) ONE (10:43)
[2023-05-07] MEDS ORDERED: ALBUTEROL SO4 2.5/IPRATROPIUM 0.5 INH SOL 3 ML VIAL.NEB. NEB ONE (10:43)
[2023-05-07] MEDS ORDERED: ACETAMINOPHEN 325 MG TABLET (FP) PO ONE (10:44)
[2023-05-07] MEDS ORDERED: ACETAMINOPHEN 325 MG TABLET (FP) ONE (10:44)
[2023-05-07] MEDS: ALBUTEROL SO4 2.5/IPRATROPIUM 0.5 INH SOL 3 ML VIAL.NEB. NEB SCH ×5 (10:48→21:17)
[2023-05-07 11:24] LABS: ANISOCYTOSIS 1+
[2023-05-07 11:26] LABS: OVALOCYTE 1+
[2023-05-07 11:39] LABS: N-TERMINAL BNP 3104.5 pg/ml (5-450)
[2023-05-07 11:41] LABS: BILIRUBIN,TOTAL 0.7 mg/dL (0.2-1)
[2023-05-07] MEDS ORDERED: FUROSEMIDE 40 MG/4 ML INJECTABLE VIAL IVPUSH ONE (14:45)
[2023-05-07 15:28] VITALS: BMI 17.9
[2023-05-07] MEDS: LIDOCAINE 5% TOPICAL PATCH TP SCH (15:55)
[2023-05-07] MEDS: traMADol HCL 50 MG TABLET PO PRN (18:35)
[2023-05-07] MEDS: EZETIMIBE 10 MG TABLET (FP) PO SCH (21:18)
[2023-05-07] MEDS: ATORVASTATIN CA 80 MG TABLET (FP) PO SCH (21:18)
[2023-05-07] MEDS: APIXABAN 2.5 MG TABLET PO SCH (21:18)
[2023-05-07] MEDS: MEMANTINE HCL 10 MG TABLET (FP) PO SCH (21:18)
[2023-05-07] MEDS: LIDOCAINE PATCH REMOVAL MC SCH (21:18)
[2023-05-07] MEDS: ACETAMINOPHEN 325 MG TABLET (FP) PO PRN (23:15)
[2023-05-08 08:55] LABS: HEMATOCRIT 29.2 % (32.4-45.2); HEMOGLOBIN 9.5 G/dL (10.7-15.3); MCH 31.6 pg (25.7-33.7); MCHC 32.4 g/dl (32.0-36.0); MEAN CELL VOLUME 97.8 fl (80-96); MEAN PLT VOLUME 9.5 fl (7.5-11.1); PLATELET COUNT 201.8 10^3/uL (134-434); RBC 2.99 10^6/uL (3.60-5.2); WHITE BLOOD COUNT 9.1 10^3/uL (4.0-10.8)
[2023-05-08 09:07] LABS: BLOOD UREA NITROGEN 27.1 mg/dl (7-18); CREATININE 0.9 mg/dl (0.6-1.3); MAGNESIUM 1.2 mg/dL (1.8-2.4); PHOSPHOROUS 3.04 (2.5-4.9); POTASSIUM 3.8 mmol/L (3.5-5.1)
[2023-05-08] MEDS ORDERED: MAGNESIUM SULF 50% (8.12 MEQ/2 ML-1 GM VIAL) IVPB ONE (09:24)
[2023-05-08] MEDS ORDERED: MAGNESIUM 1GM/D5W - 1 GM/100 ML IVPB IVPB ONE (09:30)
[2023-05-08] MEDS: predniSONE 20 MG TABLET (UD) PO SCH (09:30)
[2023-05-08] MEDS: APIXABAN 2.5 MG TABLET PO SCH ×2 (09:31→21:12)
[2023-05-08] MEDS: ASPIRIN 81 MG CHEWABLE TABLETS PO SCH (09:31)
[2023-05-08] MEDS: CYANOCOBALAMIN (VITAMIN B-12) 100 MCG TABLET PO SCH (09:31)
[2023-05-08] MEDS: DOCUSATE SODIUM 100 MG CAPSULE (FP) PO SCH (09:31)
[2023-05-08] MEDS: CHOLECALCIFEROL (VIT D3) 1,000 UNIT (25 MCG) TABLET PO SCH (09:31)
[2023-05-08] MEDS: ACETAMINOPHEN 325 MG TABLET (FP) PO PRN (09:32)
[2023-05-08] MEDS: LIDOCAINE 5% TOPICAL PATCH TP SCH (09:32)
[2023-05-08] MEDS: MEMANTINE HCL 10 MG TABLET (FP) PO SCH ×2 (09:32→21:12)
[2023-05-08] MEDS: ALBUTEROL SO4 2.5/IPRATROPIUM 0.5 INH SOL 3 ML VIAL.NEB. NEB SCH (09:33)
[2023-05-08] MEDS ORDERED: ALBUTEROL SO4 2.5/IPRATROPIUM 0.5 INH SOL 3 ML VIAL.NEB. NEB PRN (10:24)
[2023-05-08] MEDS: FLUTICASONE/UMECLIDIN/VILANTER(200-62.5-25 TRELEGY ELLIPTA) INAHLER IH SCH (10:58)
[2023-05-08] MEDS: traMADol HCL 50 MG TABLET PO PRN (15:40)
[2023-05-08] MEDS: EZETIMIBE 10 MG TABLET (FP) PO SCH (21:12)
[2023-05-08] MEDS: ATORVASTATIN CA 80 MG TABLET (FP) PO SCH (21:12)
[2023-05-08] MEDS: LIDOCAINE PATCH REMOVAL MC SCH (21:13)
[2023-05-09 08:39] LABS: ALBUMIN 3.2 g/dl (3.4-5.0); CALCIUM 8.3 mg/dl (8.5-10.1); POTASSIUM 4.7 mmol/L (3.5-5.1); SGOT/AST 21.4 U/L (15-37); SGPT/ALT 21.3 U/L (7-52); TOT PROT 5.7 g/dl (6.4-8.2)
[2023-05-09] MEDS: FLUTICASONE/UMECLIDIN/VILANTER(200-62.5-25 TRELEGY ELLIPTA) INAHLER IH SCH (09:16)
[2023-05-09] MEDS: DOCUSATE SODIUM 100 MG CAPSULE (FP) PO SCH (09:18)
[2023-05-09] MEDS: traMADol HCL 50 MG TABLET PO PRN ×2 (09:19→20:19)
[2023-05-09] MEDS: predniSONE 20 MG TABLET (UD) PO SCH (09:22)
[2023-05-09] MEDS: CHOLECALCIFEROL (VIT D3) 1,000 UNIT (25 MCG) TABLET PO SCH (09:23)
[2023-05-09] MEDS: ASPIRIN 81 MG CHEWABLE TABLETS PO SCH (09:24)
[2023-05-09] MEDS: CYANOCOBALAMIN (VITAMIN B-12) 100 MCG TABLET PO SCH (09:24)
[2023-05-09] MEDS: MEMANTINE HCL 10 MG TABLET (FP) PO SCH ×2 (09:24→21:15)
[2023-05-09] MEDS: APIXABAN 2.5 MG TABLET PO SCH ×2 (09:24→21:14)
[2023-05-09] MEDS: LIDOCAINE 5% TOPICAL PATCH TP SCH (09:24)
[2023-05-09 10:33] LABS: BILIRUBIN,TOTAL 0.5 mg/dL (0.2-1)
[2023-05-09 11:13] LABS: BASO % 0.1 % (0-2.0); HEMATOCRIT 29.7 % (32.4-45.2); HEMOGLOBIN 9.8 GM/dL (10.7-15.3); LYMPH % 7.8 % (8-40); MCH 31.2 pg (25.7-33.7); MCHC 32.9 g/dl (32.0-36.0); MEAN CELL VOLUME 94.9 fl (80-96); MONO % 10.4 % (3.8-10.2); NEUT % 81.7 % (42.8-82.8); PLATELET COUNT 229 10^3/uL (134-434); RBC 3.13 M/mm3 (3.60-5.2); RDW 17.5 % (11.6-15.6); WHITE BLOOD COUNT 10.5 K/mm3 (4.0-10.0)
[2023-05-09] MEDS: LIDOCAINE PATCH REMOVAL MC SCH (21:14)
[2023-05-09] MEDS: ATORVASTATIN CA 80 MG TABLET (FP) PO SCH (21:14)
[2023-05-09] MEDS: EZETIMIBE 10 MG TABLET (FP) PO SCH (21:15)
[2023-05-10] MEDS: DOCUSATE SODIUM 100 MG CAPSULE (FP) PO SCH (09:20)
[2023-05-10] MEDS: CYANOCOBALAMIN (VITAMIN B-12) 100 MCG TABLET PO SCH (09:20)
[2023-05-10] MEDS: traMADol HCL 50 MG TABLET PO PRN (09:20)
[2023-05-10] MEDS: predniSONE 20 MG TABLET (UD) PO SCH (09:21)
[2023-05-10] MEDS: MEMANTINE HCL 10 MG TABLET (FP) PO SCH ×2 (09:21→21:20)
[2023-05-10] MEDS: ASPIRIN 81 MG CHEWABLE TABLETS PO SCH (09:22)
[2023-05-10] MEDS: CHOLECALCIFEROL (VIT D3) 1,000 UNIT (25 MCG) TABLET PO SCH (09:22)
[2023-05-10] MEDS: APIXABAN 2.5 MG TABLET PO SCH ×2 (09:22→21:20)
[2023-05-10] MEDS: LIDOCAINE 5% TOPICAL PATCH TP SCH (09:24)
[2023-05-10] MEDS: FLUTICASONE/UMECLIDIN/VILANTER(200-62.5-25 TRELEGY ELLIPTA) INAHLER IH SCH (09:24)
[2023-05-10] MEDS: EZETIMIBE 10 MG TABLET (FP) PO SCH (21:20)
[2023-05-10] MEDS: ATORVASTATIN CA 80 MG TABLET (FP) PO SCH (21:20)
[2023-05-10] MEDS: LIDOCAINE PATCH REMOVAL MC SCH (21:22)
[2023-05-11] MEDS: APIXABAN 2.5 MG TABLET PO SCH ×2 (10:42→21:12)
[2023-05-11] MEDS: LIDOCAINE 5% TOPICAL PATCH TP SCH (10:42)
[2023-05-11] MEDS: CEPHALEXIN MONOHYDRATE 500 MG CAPSULE (UD) PO SCH ×2 (10:42→21:12)
[2023-05-11] MEDS: CYANOCOBALAMIN (VITAMIN B-12) 100 MCG TABLET PO SCH (10:42)
[2023-05-11] MEDS: DOCUSATE SODIUM 100 MG CAPSULE (FP) PO SCH (10:42)
[2023-05-11] MEDS: MEMANTINE HCL 10 MG TABLET (FP) PO SCH ×2 (10:42→21:13)
[2023-05-11] MEDS: predniSONE 20 MG TABLET (UD) PO SCH (10:42)
[2023-05-11] MEDS: ASPIRIN 81 MG CHEWABLE TABLETS PO SCH (10:42)
[2023-05-11] MEDS: CHOLECALCIFEROL (VIT D3) 1,000 UNIT (25 MCG) TABLET PO SCH (10:42)
[2023-05-11] MEDS: FLUTICASONE/UMECLIDIN/VILANTER(200-62.5-25 TRELEGY ELLIPTA) INAHLER IH SCH (10:43)
[2023-05-11] MEDS: LEVALBUTEROL HCL 0.31 MG/3 ML VIAL.NEB IH PRN (12:41)
[2023-05-11] MEDS: LIDOCAINE PATCH REMOVAL MC SCH (21:12)
[2023-05-11] MEDS: ATORVASTATIN CA 80 MG TABLET (FP) PO SCH (21:13)
[2023-05-11] MEDS: EZETIMIBE 10 MG TABLET (FP) PO SCH (21:13)
[2023-05-11] MEDS: ACETAMINOPHEN 325 MG TABLET (FP) PO PRN (23:02)
[2023-05-12] MEDS: DOCUSATE SODIUM 100 MG CAPSULE (FP) PO SCH (09:23)
[2023-05-12] MEDS: ASPIRIN 81 MG CHEWABLE TABLETS PO SCH (09:23)
[2023-05-12] MEDS: CYANOCOBALAMIN (VITAMIN B-12) 100 MCG TABLET PO SCH (09:23)
[2023-05-12] MEDS: predniSONE 20 MG TABLET (UD) PO SCH (09:23)
[2023-05-12] MEDS: CHOLECALCIFEROL (VIT D3) 1,000 UNIT (25 MCG) TABLET PO SCH (09:23)
[2023-05-12] MEDS: CEPHALEXIN MONOHYDRATE 500 MG CAPSULE (UD) PO SCH ×2 (09:23→21:17)
[2023-05-12] MEDS: MEMANTINE HCL 10 MG TABLET (FP) PO SCH ×2 (09:23→21:18)
[2023-05-12] MEDS: FLUTICASONE/UMECLIDIN/VILANTER(200-62.5-25 TRELEGY ELLIPTA) INAHLER IH SCH (09:25)
[2023-05-12] MEDS: APIXABAN 2.5 MG TABLET PO SCH ×2 (09:25→21:17)
[2023-05-12] MEDS: LIDOCAINE 5% TOPICAL PATCH TP SCH (09:25)
[2023-05-12] MEDS: ACETAMINOPHEN 325 MG TABLET (FP) PO PRN (09:26)
[2023-05-12 18:07] VITALS: RESP 17
[2023-05-12] MEDS: ATORVASTATIN CA 80 MG TABLET (FP) PO SCH (21:17)
[2023-05-12] MEDS: LIDOCAINE PATCH REMOVAL MC SCH (21:17)
[2023-05-12] MEDS: EZETIMIBE 10 MG TABLET (FP) PO SCH (21:18)
[2023-05-12] MEDS: LEVALBUTEROL HCL 0.31 MG/3 ML VIAL.NEB IH PRN (21:18)
[2023-05-13 06:43] VITALS: PULSE 77
[2023-05-13] MEDS: APIXABAN 2.5 MG TABLET PO SCH (09:01)
[2023-05-13] MEDS: predniSONE 20 MG TABLET (UD) PO SCH (09:01)
[2023-05-13] MEDS: CEPHALEXIN MONOHYDRATE 500 MG CAPSULE (UD) PO SCH (09:01)
[2023-05-13] MEDS: CHOLECALCIFEROL (VIT D3) 1,000 UNIT (25 MCG) TABLET PO SCH (09:01)
[2023-05-13] MEDS: DOCUSATE SODIUM 100 MG CAPSULE (FP) PO SCH (09:01)
[2023-05-13] MEDS: ACETAMINOPHEN 325 MG TABLET (FP) PO PRN (09:02)
[2023-05-13] MEDS: CYANOCOBALAMIN (VITAMIN B-12) 100 MCG TABLET PO SCH (09:02)
[2023-05-13] MEDS: LIDOCAINE 5% TOPICAL PATCH TP SCH (09:02)
[2023-05-13] MEDS: MEMANTINE HCL 10 MG TABLET (FP) PO SCH (09:02)
[2023-05-13] MEDS: ASPIRIN 81 MG CHEWABLE TABLETS PO SCH (09:02)
[2023-05-13] MEDS: FLUTICASONE/UMECLIDIN/VILANTER(200-62.5-25 TRELEGY ELLIPTA) INAHLER IH SCH (09:03)
[2023-05-13 10:01] VITALS: BP 148/47; TEMP 97.6
== END 2023-05-13 13:45 | DRG 190 ==
LOC: FER 08:07 → FM/S 12:52 → OBSVTOIN 05-10 11:19
PROVIDERS: ADMIT Internal Medicine
DX: J44.1 Chronic obstructive pulmonary disease with (acute) exacerbation (principal); I50.33 Acute on chronic diastolic (congestive) heart failure; J84.9 Interstitial pulmonary disease, unspecified; E87.1 Hypo-osmolality and hyponatremia; F03.90 Unspecified dementia, unspecified severity, without behavioral disturbance, psychotic disturbance, mood disturbance, and anxiety; I10 Essential (primary) hypertension; E78.5 Hyperlipidemia, unspecified; I25.10 Atherosclerotic heart disease of native coronary artery without angina pectoris; K21.9 Gastro-esophageal reflux disease without esophagitis; I48.91 Unspecified atrial fibrillation
CPT/HCPCS: 0241U-QW; 36415; 70450-TC; 71045-TC-FY; 72125-TC; 72128-TC; 72131-TC; 72170-TC-FY; 72192-TC; 80048; 80053; 82550; 83735; 83880; 84100; 84484; 85025; 85027; 93005; 93306-TC; 93970-TC; 94640; 97116-GP; 97162-GP; 99285-25; G0378

== ENCOUNTER 2023-08-20 16:44 | Observation (INO) | payer OTHER, BC ==
[2023-08-20 17:36] LABS: BASO % 0.7 % (0-2.0); EOS % 2.3 % (0-4.5); HEMATOCRIT 29.9 % (32.4-45.2); HEMOGLOBIN 9.8 GM/dL (10.7-15.3); LYMPH % 12.3 % (8-40); MCH 31.4 pg (25.7-33.7); MCHC 32.9 g/dl (32.0-36.0); MEAN CELL VOLUME 95.5 fl (80-96); MEAN PLT VOLUME 8.2 fl (7.5-11.1); MONO % 10.8 % (3.8-10.2); NEUT % 73.9 % (42.8-82.8); PLATELET COUNT 305 10^3/uL (134-434); RBC 3.13 M/mm3 (3.60-5.2); RDW 13.6 % (11.6-15.6); WHITE BLOOD COUNT 8.2 K/mm3 (4.0-10.0)
[2023-08-20 18:08] LABS: POTASSIUM 4.4 mmol/L (3.5-5.1)
[2023-08-20 18:09] LABS: MAGNESIUM 1.7 mg/dL (1.8-2.4)
[2023-08-20 18:10] LABS: CALCIUM 8.9 mg/dL (8.5-10.1)
[2023-08-20 18:11] LABS: ALBUMIN 2.8 g/dl (3.4-5.0); BLOOD UREA NITROGEN 39.3 mg/dL (7-18)
[2023-08-20 18:13] LABS: PHOSPHOROUS 3.9 mg/dL (2.5-4.9)
[2023-08-20 18:15] LABS: BILIRUBIN,TOTAL 0.1 mg/dL (0.2-1); TOT PROT 6.4 g/dl (6.4-8.2)
[2023-08-20] MEDS ORDERED: SODIUM CHLORIDE 0.9% 500 ML INFUS.BAG IV ONE ×2 (18:25→18:27)
[2023-08-20 18:54] LABS: URINE APPEARANCE CLEAR; URINE BILIRUBIN NEGATIVE (NEGATIVE); URINE COLOR YELLOW; URINE GLUCOSE (UA) NEGATIVE (NEGATIVE); URINE KETONE NEGATIVE (NEGATIVE)
[2023-08-20 18:55] LABS: URINE LEUK ESTERASE NEGATIVE (NEGATIVE); URINE NITRITE NEGATIVE (NEGATIVE); URINE PROTEIN NEGATIVE (NEGATIVE); URINE UROBILINOGEN 0.2 mg/dL (0.2-1.0)
[2023-08-20 19:50] LABS: EPI CELLS SMALL /uL (0-25.1); URINE BACTERIA MODERATE /uL (0-1359); URINE WBC 0-1 /uL (0-25.8)
[2023-08-20] MEDS ORDERED: MAGNESIUM SULFATE IN WATER 2 GM/50 ML IVPB IVPB ONE ×2 (20:49→21:36)
[2023-08-21 07:14] LABS: BASO % 1.1 % (0-2.0); EOS % 2.8 % (0-4.5); HEMATOCRIT 27.2 % (32.4-45.2); LYMPH % 16.8 % (8-40); MCH 31.7 pg (25.7-33.7); MEAN CELL VOLUME 96.2 fl (80-96); MEAN PLT VOLUME 8.6 fl (7.5-11.1); MONO % 13.1 % (3.8-10.2); NEUT % 66.2 % (42.8-82.8); PLATELET COUNT 307 10^3/uL (134-434); RBC 2.83 M/mm3 (3.60-5.2); RDW 13.9 % (11.6-15.6); WHITE BLOOD COUNT 7.4 K/mm3 (4.0-10.0)
[2023-08-21 07:21] LABS: INR 1.24 (0.83-1.09); PROTHROMBIN TIME (PATIENT) 14.4 SEC (9.7-13.0)
[2023-08-21 07:23] LABS: ACTIVATED PTT 35.7 SECONDS (25.2-36.5)
[2023-08-21 07:31] LABS: POTASSIUM 3.8 mmol/L (3.5-5.1)
[2023-08-21 07:33] LABS: CALCIUM 8.8 mg/dL (8.5-10.1)
[2023-08-21 07:34] LABS: BLOOD UREA NITROGEN 36.5 mg/dL (7-18); MAGNESIUM 1.9 mg/dL (1.8-2.4)
[2023-08-21 07:37] LABS: CREATININE 0.9 mg/dL (0.55-1.3); PHOSPHOROUS 4.1 mg/dL (2.5-4.9)
[2023-08-21] MEDS: APIXABAN 2.5 MG TABLET PO SCH ×2 (10:16→21:15)
[2023-08-21] MEDS: VALSARTAN 40 MG TABLET PO SCH (10:16)
[2023-08-21] MEDS ORDERED: IRON SUCROSE INJECTION 200 MG in SODIUM CHLORIDE 90 ML IVPB ONE (13:03)
[2023-08-21 15:19] LABS: RETICULOCYTES 0.83 % (0.5-1.5)
[2023-08-21] MEDS ORDERED: EZETIMIBE 10 MG TABLET (FP) PO SCH (22:00)
[2023-08-21] MEDS ORDERED: ATORVASTATIN CA 80 MG TABLET (FP) PO SCH (22:00)
[2023-08-21] MEDS ORDERED: METOPROLOL TARTRATE 50 MG TABLET (FP) PO SCH (22:00)
[2023-08-22 08:21] LABS: BASO % 1.1 % (0-2.0); EOS % 4.7 % (0-4.5); HEMOGLOBIN 9.7 GM/dL (10.7-15.3); LYMPH % 12.7 % (8-40); MCH 31.3 pg (25.7-33.7); MCHC 32.4 g/dl (32.0-36.0); MEAN CELL VOLUME 96.5 fl (80-96); MEAN PLT VOLUME 8.3 fl (7.5-11.1); MONO % 12.5 % (3.8-10.2); PLATELET COUNT 276 10^3/uL (134-434); RBC 3.11 M/mm3 (3.60-5.2); RDW 13.5 % (11.6-15.6); WHITE BLOOD COUNT 6.1 K/mm3 (4.0-10.0)
[2023-08-22 08:44] LABS: POTASSIUM 3.9 mmol/L (3.5-5.1)
[2023-08-22 08:52] LABS: ALBUMIN 2.8 g/dl (3.4-5.0); BLOOD UREA NITROGEN 33.8 mg/dL (7-18); CALCIUM 8.7 mg/dL (8.5-10.1); CREATININE 0.9 mg/dL (0.55-1.3)
[2023-08-22 08:53] LABS: BILIRUBIN,TOTAL 0.3 mg/dL (0.2-1); TOT PROT 6.4 g/dl (6.4-8.2)
[2023-08-22] MEDS: APIXABAN 2.5 MG TABLET PO SCH (09:52)
[2023-08-22] MEDS: VALSARTAN 40 MG TABLET PO SCH (09:52)
[2023-08-22 12:24] VITALS: RESP 18
[2023-08-22 15:17] VITALS: TEMP 97.7
[2023-08-22 15:41] VITALS: BMI 16.8
[2023-08-22 18:40] VITALS: BP 107/77; PULSE 74
== END 2023-08-22 19:55 ==
LOC: JER 16:44 → JERBED 20:48 → J4W 23:33
PROVIDERS: ADMIT Internal Medicine; ATTEND Internal Medicine
PROC: 3E033GC Introduction of Other Therapeutic Substance into Peripheral Vein, Percutaneous Approach (ICD-10-PCS; principal; 2023-08-20)
PROC: 3E0337Z Introduction of Electrolytic and Water Balance Substance into Peripheral Vein, Percutaneous Approach (ICD-10-PCS; 2023-08-20)
DX: R41.82 Altered mental status, unspecified (principal); E83.42 Hypomagnesemia; F03.90 Unspecified dementia, unspecified severity, without behavioral disturbance, psychotic disturbance, mood disturbance, and anxiety; I48.91 Unspecified atrial fibrillation; I11.0 Hypertensive heart disease with heart failure; Z79.01 Long term (current) use of anticoagulants; I25.10 Atherosclerotic heart disease of native coronary artery without angina pectoris; D64.9 Anemia, unspecified; I50.9 Heart failure, unspecified; J44.9 Chronic obstructive pulmonary disease, unspecified; K21.9 Gastro-esophageal reflux disease without esophagitis; Z86.73 Personal history of transient ischemic attack (TIA), and cerebral infarction without residual deficits; Z87.891 Personal history of nicotine dependence
CPT/HCPCS: 0241U-QW; 36415; 70450-TC; 71045-TC-FY; 80048; 80053; 81003; 82272; 82728; 82962; 83540; 83550; 83605; 83735; 84100; 84466; 84484; 85025; 85045; 85610; 85730; 87086; 87186; 93005; 93010; 95816; 96365; 96367; 99285-25; G0378; J1756